=== PATIENT | male | born 1960 | race Caucasian/White ===

== ENCOUNTER 2017-02-05 09:10 | Outpatient (RCR) | payer MEDICAID, SELFPAY ==
[2017-02-05 09:29] VITALS: BP 123/78; PULSE 59; RESP 16; TEMP 37.6; BMI 29.5
--- NOTE | 2017-02-05 23:17 | PN.PCM_ITS ---
Type of Wound Date of Service: 02/05/17 Chief Complaint: MRSA abscess wounds dorsal ulnar aspect distal right forearm and right lower lip. History of Wound: Surgery 01/12/17 - 1. Surgical preparation dorsal ulnar aspect distal right forearm with incision and drainage abscess involving muscle and tendon (12.25 cm2). 2. Surgical preparation right lower lip with incision and drainage abscess involving underlying muscle (1 cm2). Wound care - Silver with adaptic over the tendon. Operative culture - MRSA in the right forearm and right lower lip. He is on Vancomycin IV while at the [facility]. Prealbumin from 01/13/17 was 14.1. Encourage nutritional supplementation with protein to help the healing process. Today he denies any fever. His appetite is good. Progress of Wound: Recent surgery 01/12/17. - Physical Exam Vital Signs Temp Pulse Resp BP Pulse Ox 99.6 F 59 16 123/78 02/05/17 09:29 02/05/17 09:29 02/05/17 09:29 02/05/17 09:29 Wound Measurements and Assessment WC - Nurse 1 - General Ulcer Measurement Start: 02/05/17 09:27 Freq: Status: Active Activity Type Activity Date Activity User E-Sign Co-Sign Detail Recorded Client Recorded Date Recorded By Document 02/05/17 09:29 [facility] [id number] 02/05/17 09:52 [facility] 02/05/17 09:29 Wound Center Nurse 1 [Ulcer Assessment] #3- LT TESTICLE (SUTURES) -Combined with other wound No -Current Size (cm) - Length 0.1 -Current Size (cm) - Width 0.1 -Current Size (cm) - Depth 0.1 -Total Square Cm 0.01 -Date of Last Picture (Recall this 02/05/17 field) -Photo Taken Yes -Epithelialization None Present -Tunneling No -Undermining/Tunneling No -Exudate Amt None Present (0 %) -Texture (Antonella-wound Skin Appearance) Assessed -Moisture (Antonella-wound Skin Appearance Assessed ) -Color (Antonella-wound Skin Appearance) Assessed -Temperature (Antonella-wound Skin No Abnormality Appearance) (Pt Warm) -Tenderness on Palpation (Antonella-wound No Skin Appearance) -Ulcer Cleansing Rinsed/ Irrigated with Saline -Foul Odor after Cleansing No -Anesthetic Used 4% Lidocaine Solution #2- RFA -Combined with other wound No -Current Size (cm) - Length 3.1 -Current Size (cm) - Width 3.2 -Current Size (cm) - Depth 0.4 -Total Square Cm 9.92 -Date of Last Picture (Recall this 02/05/17 field) -Photo Taken Yes -Epithelialization None Present -Tunneling No -Undermining/Tunneling Yes -Undermining/Tunneling Starts (O' 7 clock) -Undermining/Tunneling Ends (O'clock) 8 -Maximum Distance (cm) 0.4 -Exudate Amt Small (1-33%) -Exudate Type Yellow/Green -Wound Margin Distinct, Outline Attached -Granulation Amt Medium (34-66%) -Granulation Quality Pale Red -Slough/Fibrin Yes -Necrosis Amt Medium (34-66%) -Necrotic Tissue Type Adherent Slough -Structure Exposed Tendon -Texture (Antonella-wound Skin Appearance) Localized Edema -Moisture (Antonella-wound Skin Appearance Assessed ) -Color (Antonella-wound Skin Appearance) Erythema -Temperature (Antonella-wound Skin No Abnormality Appearance) (Pt Warm) -Tenderness on Palpation (Antonella-wound Yes Skin Appearance) -Ulcer Cleansing Rinsed/ Irrigated with Saline -Foul Odor after Cleansing No -Anesthetic Used 4% Lidocaine Solution #1- RT LOWER LIP\ -Combined with other wound No -Current Size (cm) - Length 0.6 -Current Size (cm) - Width 0.7 -Current Size (cm) - Depth 0.1 -Total Square Cm 0.42 -Date of Last Picture (Recall this 02/05/17 field) -Photo Taken Yes -Epithelialization None Present -Tunneling No -Undermining/Tunneling No -Exudate Amt None Present (0 %) -Wound Margin Distinct, Outline Attached -Granulation Amt None Present (0 %) -Slough/Fibrin Yes -Necrosis Amt Large (67-100%) -Necrotic Tissue Type Eschar -Structure Exposed N/A -Texture (Antonella-wound Skin Appearance) Assessed -Moisture (Antonella-wound Skin Appearance Assessed ) -Color (Antonella-wound Skin Appearance) Assessed -Temperature (Antonella-wound Skin No Abnormality Appearance) (Pt Warm) -Tenderness on Palpation ([place]-wound No Skin Appearance) -Ulcer Cleansing Rinsed/ Irrigated with Saline -Foul Odor after Cleansing No -Anesthetic Used 4% Lidocaine Solution WC - Nurse 2 - General Ulcer CM Notes Start: 02/05/17 09:27 Freq: Status: Active Activity Type Activity Date Activity User E-Sign Co-Sign Detail Recorded Client Recorded Date Recorded By Document 02/05/17 10:20 MARIAN [id number] 02/05/17 10:22 02/05/17 10:20 Wound Center Nurse 2 [Procedure/Treatment] #3- LT TESTICLE (SUTURES) -Correct Patient No -Correct Side, Site, Position No -Correct Procedure No -Procedure Performed No #2- RFA -Time 10:20 -Correct Patient Yes -Correct Side, Site, Position Yes -Correct Procedure Yes -Procedure Performed Yes -Type of Procedure Debridement -Clinical Debridement Muscle -Post Debridement Size (cm) - Length 3.2 -Post Debridement Size (cm) - Width 3.2 -Post Debridement Size (cm) - Depth 0.4 -Total Square Cm 10.24 -Wound/Ulcer Outcome Not Healed -Ulcer Cleansing Rinsed/ Irrigated with Saline -Foul Odor after Cleansing No -Bioengineered Tissue No -Cetacaine [place] No -Bleeding Controlled with Pressure -Treatment Response Procedure Tolerated Well #1- RT LOWER LIP\ -Time 10:21 -Correct Patient Yes -Correct Side, Site, Position Yes -Correct Procedure Yes -Procedure Performed Yes -Type of Procedure Debridement -Clinical Debridement Subcutaneous -Post Debridement Size (cm) - Length 0.7 -Post Debridement Size (cm) - Width 0.7 -Post Debridement Size (cm) - Depth 0.1 -Total Square Cm 0.49 -Wound/Ulcer Outcome Not Healed -Ulcer Cleansing Rinsed/ Irrigated with Saline -Foul Odor after Cleansing No -Bioengineered Tissue No -Cetacaine [place] No -Bleeding Controlled with Pressure -Treatment Response Procedure Tolerated Well [See Physician Procedure note for Specifics] Pain Scale: 0-10 Numeric [Pain] -Is Patient Pain Free? Yes Debridement Note Post-Debridement Measurements/Treatment WC - Nurse 2 - General Ulcer CM Notes Start: 02/05/17 09:27 Freq: Status: Active Activity Type Activity Date Activity User E-Sign Co-Sign Detail Recorded Client Recorded Date Recorded By Document 02/05/17 10:20 MARIAN [id number] 02/05/17 10:22 02/05/17 10:20 Wound Center Nurse 2 #3- LT TESTICLE (SUTURES) -Correct Patient No -Correct Side, Site, Position No -Correct Procedure No -Procedure Performed No #2- RFA -Time 10:20 -Correct Patient Yes -Correct Side, Site, Position Yes -Correct Procedure Yes -Procedure Performed Yes -Type of Procedure Debridement -Clinical Debridement Muscle -Post Debridement Size (cm) - Length 3.2 -Post Debridement Size (cm) - Width 3.2 -Post Debridement Size (cm) - Depth 0.4 -Total Square Cm 10.24 -Wound/Ulcer Outcome Not Healed -Ulcer Cleansing Rinsed/ Irrigated with Saline -Foul Odor after Cleansing No -Bioengineered Tissue No -Cetacaine [place] No -Bleeding Controlled with Pressure -Treatment Response Procedure Tolerated Well #1- RT LOWER LIP\ -Time 10:21 -Correct Patient Yes -Correct Side, Site, Position Yes -Correct Procedure Yes -Procedure Performed Yes -Type of Procedure Debridement -Clinical Debridement Subcutaneous -Post Debridement Size (cm) - Length 0.7 -Post Debridement Size (cm) - Width 0.7 -Post Debridement Size (cm) - Depth 0.1 -Total Square Cm 0.49 -Wound/Ulcer Outcome Not Healed -Ulcer Cleansing Rinsed/ Irrigated with Saline -Foul Odor after Cleansing No -Bioengineered Tissue No -Cetacaine [place] No -Bleeding Controlled with Pressure -Treatment Response Procedure Tolerated Well Pain Scale: 0-10 Numeric Is Patient Pain Free? Yes Wound debrided: #1 Right lower lip. Laterality: Right Wound Grade/Stage: 2. Type of Debridement: Excisional debridement Anesthesia Used: 4% Lidocaine Solution Depth: Down to and including healthy tissue, in the subcutaneous layer Percentage of wound debrided: 100 Instrument Used: 5mm curette Tissue Removed: subcutaneous tissue. Severity: Fat Layer Exposed Amount of bleeding with debridement: Mild Bleeding Controlled with: Pressure Patient tolerated procedure well - Additional Wound Wound debrided: #2 Dorsal ulnar aspect distal right forearm area. Laterality: Right Wound Grade/Stage: 3. Type of Debridement: Excisional debridement Anesthesia Used: 4% Lidocaine Solution Depth: Down to and including healthy tissue, in the subcutaneous layer, to muscle - tendon is exposed. Percentage of wound debrided: 100 Instrument Used: 5mm curette Tissue Removed: subcutaneous tissue and muscle. Severity: Fat Layer Exposed - muscle is exposed. tendon is exposed. Amount of bleeding with debridement: Mild Bleeding Controlled with: Pressure Patient tolerated procedure: Patient tolerated procedure well Assessment/Plan Assessment: 1. MRSA abscess wound dorsal ulnar aspect distal right forearm. 2. MRSA abscess wound right lower lip. 3. MRSA. 4. Smoker. Plan: Continue IV Vancomycin while at the ECF. Anticipate discharge in a week. Can change to po Doxycycline at that time. Continue Silver dressing changes daily. May use adaptic over the exposed tendon on the right forearm wound. May moisten the Silver. Wounds are stable. From my standpoint, the patient may work as long as he is out of the ECF and doesn't need po analgesics while at work. Prealbumin from 01/13/17 was 14.1. Encourage nutritional supplementation with protein to help the healing process. Encouraged the patient to stop smoking as it may have deleterious effects on wound healing. Followup 2 weeks.
== END 2017-02-08 23:59 ==
LOC: WC 09:10
PROVIDERS: Family Provider Internal Medicine; PCP Internal Medicine; Visit Provider Surgery
DX: K13.0 Diseases of lips (principal); L02.413 Cutaneous abscess of right upper limb; B95.62 Methicillin resistant Staphylococcus aureus infection as the cause of diseases classified elsewhere; F17.200 Nicotine dependence, unspecified, uncomplicated
CPT/HCPCS: 11042; 11043; 99213; G0463

== ENCOUNTER 2017-02-26 10:00 | Outpatient (RCR) | payer OTHER, SELFPAY ==
[2017-02-11 01:20] VITALS: BP 123/78; PULSE 59; RESP 16; TEMP 37.6; BMI 29.5
[2017-02-19 09:38] VITALS: BP 144/98; PULSE 110; RESP 18; TEMP 35.6; BMI 29.5
--- NOTE | 2017-02-19 23:40 | PN.PCM_ITS ---
Type of Wound Date of Service: 02/19/17 Chief Complaint: Nonhealing MRSA abscess ulcers dorsal ulnar aspect distal right forearm and right lower lip. History of Wound: Surgery 01/12/17 - 1. Surgical preparation dorsal ulnar aspect distal right forearm with incision and drainage abscess involving muscle and tendon (12.25 cm2). 2. Surgical preparation right lower lip with incision and drainage abscess involving underlying muscle (1 cm2). Wound care - Silver with adaptic over the tendon. Operative culture - MRSA in the right forearm and right lower lip. He stopped the Vancomycin IV when he was discharged from the [facility]. He is currently on Doxycycline. Prealbumin from 01/13/17 was 14.1. Encourage nutritional supplementation with protein to help the healing process. Today he denies any fever. His appetite is good. Progress of Wound: Right lower lip is healed and right forearm is improved. - Physical Exam Vital Signs Temp Pulse Resp BP 96.0 F L 110 H 18 144/98 H 02/19/17 09:38 02/19/17 09:38 02/19/17 09:38 02/19/17 09:38 Wound Measurements and Assessment - Nurse 1 - General Ulcer Measurement Start: 02/19/17 09:38 Freq: Status: Active Protocol: Activity Type Activity Date Activity User E-Sign Co-Sign Detail Recorded Client Recorded Date Recorded By Document 02/19/17 09:38 [id number] 02/19/17 09:41 02/19/17 09:38 Wound Center Nurse 1 [Ulcer Assessment Protocol: XAVIER.WD.LOC] #2- RFA -Combined with other wound No -Current Size (cm) - Length 3.3 -Current Size (cm) - Width 2.8 -Current Size (cm) - Depth 0.5 -Total Square Cm 9.24 -Photo Taken No -Epithelialization Small 1-33% -Tunneling No -Undermining/Tunneling No -Circular Undermining No -Classification - Thickness Full Thickness without Exposed Support Structure -Exudate Amt Medium (34-66%) -Exudate Type Serosanguineous -Wound Margin Distinct, Outline Attached -Granulation Amt Small (1-33%) -Granulation Quality [place] -Slough/Fibrin Yes -Necrosis Amt Medium (34-66%) -Necrotic Tissue Type Adherent Slough -Structure Exposed Fascia Fat Layer Exposed -Texture (Antonella-wound Skin Appearance) Scarring -Moisture (Antonella-wound Skin Appearance No Abnormality ) -Color (Antonella-wound Skin Appearance) Erythema -Temperature (Antonella-wound Skin No Abnormality Appearance) (Pt Warm) -Tenderness on Palpation (Antonella-wound No Skin Appearance) -Ulcer Cleansing Rinsed/ Irrigated with Saline -Foul Odor after Cleansing No -Anesthetic Used 5% Lidocaine Gel [Edema Assessment] -Lower Limb Edema Present No WC - Nurse 2 - General Ulcer CM Notes Start: 02/19/17 09:38 Freq: Status: Active Protocol: Activity Type Activity Date Activity User E-Sign Co-Sign Detail Recorded Client Recorded Date Recorded By Document 02/19/17 09:49 [id number] 02/19/17 09:51 02/19/17 09:49 Wound Center Nurse 2 [Procedure/Treatment] #2- RFA -Time 09:50 -Correct Patient Yes -Correct Side, Site, Position Yes -Correct Procedure Yes -Procedure Performed Yes -Type of Procedure Debridement -Clinical Debridement Muscle -Post Debridement Size (cm) - Length 3.5 -Post Debridement Size (cm) - Width 2.8 -Post Debridement Size (cm) - Depth 0.5 -Total Square Cm 9.80 -Wound/Ulcer Outcome Not Healed -Ulcer Cleansing Rinsed/ Irrigated with Saline -Foul Odor after Cleansing No -Bioengineered Tissue No -Cetacaine [place] No -Bleeding Controlled with Pressure -Treatment Response Procedure Tolerated Well [See Physician Procedure note for Specifics] Pain Scale: 0-10 Numeric [Pain] -Is Patient Pain Free? Yes Debridement Note Post-Debridement Measurements/Treatment WC - Nurse 2 - General Ulcer CM Notes Start: 02/19/17 09:38 Freq: Status: Active Protocol: Activity Type Activity Date Activity User E-Sign Co-Sign Detail Recorded Client Recorded Date Recorded By Document 02/19/17 09:49 [id number] 02/19/17 09:51 02/19/17 09:49 Wound Center Nurse 2 #2- RFA -Time 09:50 -Correct Patient Yes -Correct Side, Site, Position Yes -Correct Procedure Yes -Procedure Performed Yes -Type of Procedure Debridement -Clinical Debridement Muscle -Post Debridement Size (cm) - Length 3.5 -Post Debridement Size (cm) - Width 2.8 -Post Debridement Size (cm) - Depth 0.5 -Total Square Cm 9.80 -Wound/Ulcer Outcome Not Healed -Ulcer Cleansing Rinsed/ Irrigated with Saline -Foul Odor after Cleansing No -Bioengineered Tissue No -Cetacaine [place] No -Bleeding Controlled with Pressure -Treatment Response Procedure Tolerated Well Pain Scale: 0-10 Numeric Is Patient Pain Free? Yes Wound debrided: #2 Dorsal ulnar aspect distal right forearm area. Laterality: Right Wound Grade/Stage: 3. Type of Debridement: Excisional debridement Anesthesia Used: 4% Lidocaine Solution Depth: Down to and including healthy tissue, in the subcutaneous layer, to muscle - tendon is exposed. Percentage of wound debrided: 100 Instrument Used: 5mm curette Tissue Removed: subcutaneous tissue and muscle. Severity: Fat Layer Exposed - muscle is exposed. tendon is exposed. Amount of bleeding with debridement: Mild Bleeding Controlled with: Pressure Patient tolerated procedure well Assessment/Plan Assessment: 1. Nonhealing MRSA abscess ulcer dorsal ulnar aspect distal right forearm. 2. MRSA abscess ulcer right lower lip, healed. 3. MRSA. 4. Smoker. Plan: The right lower lip MRSA ulcer has healed. The Vancomycin has been stopped since he has been discharged from the [facility]. He is currently on Doxycycline for the MRSA. Continue Silver dressing changes daily on the distal right forearm ulcer. May use adaptic over the exposed tendon on the right forearm ulcer. May moisten the Silver. He is at work and is tolerating it ok. He doesn't use any po analgesics while at work. After work when he gets home , he has needed some po analgesia. Renewed his Percocet for pain, one tab (30 tabs). Prealbumin from 01/13/17 was 14.1. Encourage nutritional supplementation with protein to help the healing process. Encouraged the patient to stop smoking as it may have deleterious effects on wound healing. Followup one week.
[2017-02-26 10:13] VITALS: BP 142/86; PULSE 69; RESP 18; TEMP 37.7; BMI 29.5
--- NOTE | 2017-02-26 17:57 | PN.PCM_ITS ---
Type of Wound Date of Service: 02/26/17 Chief Complaint: Nonhealing MRSA abscess ulcer dorsal ulnar aspect distal right forearm. History of Wound: Surgery 01/12/17 - 1. Surgical preparation dorsal ulnar aspect distal right forearm with incision and drainage abscess involving muscle and tendon (12.25 cm2). 2. Surgical preparation right lower lip with incision and drainage abscess involving underlying muscle (1 cm2). Wound care - Silver with adaptic over the tendon. Operative culture - MRSA in the right forearm and right lower lip. He stopped the Vancomycin IV when he was discharged from the [facility]. He was started on Doxycycline and has finished them. Prealbumin from 01/13/17 was 14.1. Encourage nutritional supplementation with protein to help the healing process. Today he denies any fever. His appetite is good. Progress of Wound: Right forearm ulcer is improved. - Physical Exam Vital Signs Temp Pulse Resp BP 99.8 F H 69 18 142/86 H 02/26/17 10:13 02/26/17 10:13 02/26/17 10:13 02/26/17 10:13 Wound Measurements and Assessment - Nurse 1 - General Ulcer Measurement Start: 02/19/17 09:38 Freq: Status: Active Protocol: Activity Type Activity Date Activity User E-Sign Co-Sign Detail Recorded Client Recorded Date Recorded By Document 02/26/17 10:13 [id number] 02/26/17 10:15 02/26/17 10:13 Wound Center Nurse 1 [Ulcer Assessment Protocol: XAVIER.WD.LOC] #2- RFA -Combined with other wound No -Current Size (cm) - Length 3.0 -Current Size (cm) - Width 3.0 -Current Size (cm) - Depth 0.7 -Total Square Cm 9.00 -Photo Taken No -Epithelialization Small 1-33% -Tunneling No -Undermining/Tunneling No -Circular Undermining No -Classification - Thickness Full Thickness with Exposed Support Structure -Exudate Amt Medium (34-66%) -Exudate Type Serosanguineous -Wound Margin Distinct, Outline Attached -Granulation Amt Medium (34-66%) -Granulation Quality Red -Slough/Fibrin Yes -Necrosis Amt Small (1-33%) -Necrotic Tissue Type Adherent Slough -Structure Exposed Tendon Fascia Fat Layer Exposed -Texture (Antonella-wound Skin Appearance) No Abnormality -Moisture (Antonella-wound Skin Appearance Maceration ) -Color (Antonella-wound Skin Appearance) Erythema -Temperature (Antonella-wound Skin No Abnormality Appearance) (Pt Warm) -Tenderness on Palpation (Antonella-wound No Skin Appearance) -Ulcer Cleansing Rinsed/ Irrigated with Saline -Foul Odor after Cleansing No -Anesthetic Used 5% Lidocaine Gel [Edema Assessment] -Lower Limb Edema Present No WC - Nurse 2 - General Ulcer CM Notes Start: 02/19/17 09:38 Freq: Status: Active Protocol: Activity Type Activity Date Activity User E-Sign Co-Sign Detail Recorded Client Recorded Date Recorded By Document 02/26/17 10:31 [id number] 02/26/17 10:32 02/26/17 10:31 Wound Center Nurse 2 [Procedure/Treatment] #2- RFA -Time 10:32 -Correct Patient Yes -Correct Side, Site, Position Yes -Correct Procedure Yes -Procedure Performed Yes -Type of Procedure Debridement -Clinical Debridement Muscle -Post Debridement Size (cm) - Length 3.1 -Post Debridement Size (cm) - Width 3.0 -Post Debridement Size (cm) - Depth 0.7 -Total Square Cm 9.30 -Wound/Ulcer Outcome Not Healed -Ulcer Cleansing Rinsed/ Irrigated with Saline -Foul Odor after Cleansing No -Bioengineered Tissue No -Cetacaine [place] No -Bleeding Controlled with Pressure -Treatment Response Procedure Tolerated Well [See Physician Procedure note for Specifics] Pain Scale: 0-10 Numeric [Pain] -Is Patient Pain Free? Yes Debridement Note Post-Debridement Measurements/Treatment WC - Nurse 2 - General Ulcer CM Notes Start: 02/19/17 09:38 Freq: Status: Active Protocol: Activity Type Activity Date Activity User E-Sign Co-Sign Detail Recorded Client Recorded Date Recorded By Document 02/19/17 09:49 [id number] 02/19/17 09:51 Document 02/26/17 10:31 [id number] 02/26/17 10:32 02/19/17 02/26/17 09:49 10:31 Wound Center Nurse 2 #2- RFA -Time 09:50 10:32 -Correct Patient Yes Yes -Correct Side, Site, Position Yes Yes -Correct Procedure Yes Yes -Procedure Performed Yes Yes -Type of Procedure Debridement Debridement -Clinical Debridement Muscle Muscle -Post Debridement Size (cm) - Length 3.5 3.1 -Post Debridement Size (cm) - Width 2.8 3.0 -Post Debridement Size (cm) - Depth 0.5 0.7 -Total Square Cm 9.80 9.30 -Wound/Ulcer Outcome Not Healed Not Healed -Ulcer Cleansing Rinsed/ Rinsed/ Irrigated with Irrigated with Saline Saline -Foul Odor after Cleansing No No -Bioengineered Tissue No No -Cetacaine [place] No No -Bleeding Controlled with Pressure Pressure -Treatment Response Procedure Procedure Tolerated Well Tolerated Well Pain Scale: 0-10 Numeric Is Patient Pain Free? Yes Yes Wound debrided: #2 Dorsal ulnar aspect distal right forearm area. Laterality: Right Wound Grade/Stage: 3. Type of Debridement: Excisional debridement Anesthesia Used: 4% Lidocaine Solution Depth: Down to and including healthy tissue, in the subcutaneous layer, to muscle - tendon is exposed. Percentage of wound debrided: 100 Instrument Used: 5mm curette Tissue Removed: subcutaneous tissue and muscle. Severity: Fat Layer Exposed - muscle is exposed. tendon is exposed. Amount of bleeding with debridement: Mild Bleeding Controlled with: Pressure Patient tolerated procedure well Assessment/Plan Assessment: 1. Nonhealing MRSA abscess ulcer dorsal ulnar aspect distal right forearm. 2. MRSA abscess ulcer right lower lip, healed. 3. MRSA. 4. Smoker. Plan: The Vancomycin has been stopped since he has been discharged from the [facility]. He was started on Doxycycline for the MRSA and has finished them. Continue Silver dressing changes daily on the distal right forearm ulcer. May use adaptic over the exposed tendon on the right forearm ulcer. May moisten the Silver. He is at work and is tolerating it ok. He doesn't use any po analgesics while at work. After work when he gets home, he has needed some po analgesia. Renewed his Percocet for pain, one tab (30 tabs). Prealbumin from 01/13/17 was 14.1. Encourage nutritional supplementation with protein to help the healing process. Encouraged the patient to stop smoking as it may have deleterious effects on wound healing. Followup 3 weeks.
== END 2017-03-11 23:59 ==
LOC: WC 10:00
PROVIDERS: Family Provider Internal Medicine; PCP Internal Medicine; Visit Provider Surgery
DX: L02.413 Cutaneous abscess of right upper limb (principal); B95.62 Methicillin resistant Staphylococcus aureus infection as the cause of diseases classified elsewhere; K13.0 Diseases of lips; F17.200 Nicotine dependence, unspecified, uncomplicated
CPT/HCPCS: 11043

== ENCOUNTER 2017-03-02 13:38 | Observation (INO) | payer MEDICAID, SELFPAY ==
[2017-03-02 13:57] VITALS: BMI 28.6
--- NOTE | 2017-03-02 14:13 | PCM.HP.STD ---
Problem List (1) Drug abuse Status: Chronic (2) Restless leg syndrome Status: Chronic (3) Depression Status: Chronic (4) History of alcohol abuse Status: Chronic (5) Tobacco abuse Status: Chronic (6) History of MRSA infection Status: Chronic History of Present Illness Date of Admission: 03/02/17 Chief Complaint: Abdominal cramps, nausea and diarrhea. The patient is a 57 year old M with past medical history as mentioned above presented to [facility] office because of symptoms of abdominal cramps, nausea, diarrhea and body aches. Patient has been using IV heroin over the last few weeks, almost daily, last dose was yesterday morning. 3 hours after his last dose yesterday morning, he started having abdominal pain, described as abdominal cramps, mild to moderate, around 4 out of 10 in severity, not radiating, associated with nausea and diarrhea and without aggravating or relieving factors. He denied associated fever or chills. He reported generalized body aches and pains. He complained of headache, generalized headache, dull aching, without aggravating or relieving factors and no associated symptoms. He denied associated blurred vision or slurred speech. He denies urinary symptoms. On January,, he was admitted for right distal forearm MRSA abscess underwent incision and drainage and he was discharged on vancomycin. According to the patient, he completed the course of vancomycin around 1 week ago[address] He saw Dr. Lara this past Sunday and according to the patient, everything was fine. During that admission, he was found to have scrotal abscess and he underwent incision and drainage as well. Cultures from the scrotal abscess and right distal forearm abscess revealed MRSA during that admission. At this time, his vital signs are stable, afebrile. He was directly admitted to the floor from the [facility] office for acute opiate withdrawal for medical stabilization. No blood work done at this time. Past Medical History Past Medical History (Chronic Problems): Chronic Problems Drug abuse (Chronic) Restless leg syndrome (Chronic) Depression (Chronic) History of alcohol abuse (Chronic) Tobacco abuse (Chronic) History of MRSA infection (Chronic) Allergies meloxicam Allergy (Verified 01/11/17 09:51) Hives Home Medications: Ambulatory Orders Medication Instructions Recorded Fluoxetine HCl [Prozac] 20 mg PO DAILY 01/11/17 Lactobacillus Acidophilus 1 cap PO DAILY 01/11/17 [Acidophilus] Melatonin 10 mg PO QHS 01/11/17 Naproxen 500 mg PO BID PRN 01/11/17 Nicotine Polacrilex [Nicotine 4 mg BUCCAL Q4H PRN 01/11/17 Lozenge] Trazodone HCl [Desyrel] 100 mg PO QHS PRN PRN 01/11/17 Acetaminophen [Tylenol Tablet] 650 mg PO Q6H PRN PRN tablet 01/19/17 Naproxen 500 mg PO TID PRN PRN 03/02/17 Nicotine [Nicoderm Cq] 21 mg TRANSDERM. DAILY 03/02/17 Surgical History: - - Recent history of incision and drainage of right distal forearm abscess and scrotal abscess. Psychiatric History: Depression Lives: Spouse/ Significant Other Smoking Status: Current every day smoker Alcohol: Heavy Drugs: Heroin - *Family History Maternal History Items: Cancer Paternal History Items: No pertinent history Review of Systems Constitutional: Denies: Anorexia, Chills, Fever, Weakness Eyes: Denies: Blurred vision, Double vision, Drainage, Redness HEENT: Denies: Difficulty Hearing, Ear Pain, Eye Pain, Nasal Congestion, Sore Throat Cardiovascular: Denies: Chest Pain, Chest Pressure, Edema, Heaviness, Palpitations, Syncope Respiratory: Reports: Cough. Denies: Pleuritic Pain, Shortness of Breath, Sputum production, Wheezing Gastrointestinal: Reports: Diarrhea, Nausea. Denies: Abdominal Pain, Constipation, Hematochezia, Melena, Vomiting Genitourinary: Denies: Dysuria, Frequency, Hematuria Musculoskeletal: Reports: Muscle pain. Denies: Arm Pain, Foot Pain, Hand Pain Skin: Denies: Dryness, Rash Neurological: Denies: Balance problems, Double vision, Change in Speech, Slurred speech, Confusion, Focal weakness, Headaches, Incoordination, Tingling Psychiatric: Reports: Depression. Denies: Anxiety Endocrine: Denies: Change in Body Habitus, Polydipsia VTE Information - Inpt Only VTE Present on Admission: No VTE Mechan Device Prophylaxis: None VTE Pharm Prophylaxis ordered?: No - Physical Exam General: Alert, Oriented x3, Cooperative, No apparent distress HEENT: Atraumatic, PERRLA, EOMI Oral: Moist Mucosa, No Gingival or Mucosal Lesions/ Ulcerations Neck: Supple, No JVD, Negative Carotid Bruits, Trachea Midline, Thyroid Normal Size and Texture Lungs: Clear to auscultation, No rhonchi, No wheeze, No rales, Diminished Cardiovascular: Regular rate, Regular Rhythm, Normal S1, Normal S2, No murmurs Abdomen: Bowel Sounds Present, Soft, Non Tender, Non-Distended, No Hepato-splenomegaly Extremities: No clubbing, No cyanosis, No edema Skin: No rashes, Ulcer/ Wound - Right forearm: Open ulcer/wound measuring about 3 x 2 cm on the lateral aspect of the right forearm with surrounding minimal erythema, no drainage or pus. Lymphatic: No Cervical, Supraclavicular, or Inguinal Adenopathy Neurological: Cranial nerves II-XII grossly intact, Motor Exam 5/5 strength throughout Psych/Mental Status: Normal Affect, Appropriate, Alert and oriented to time, place, person, mood and affect Weight: 193 lb 12.581 oz Body Mass Index (BMI) 28.6 Assessment/Plan This is a 57 years old male patient presented to the [facility] office for symptoms of generalized body aches, abdominal cramps, nausea and diarrhea in context of history of using IV heroin, last dose was yesterday morning and he was admitted for acute opiate withdrawal for medical stabilization. #1 acute opiate withdrawal: Patient has been using IV heroin for the last couple of weeks, also has been using pain pills since his surgery back in January 12, 2017. According to the patient, he has been clean for more than a year before that date and he has been using pain pills and IV him as well. Last use was yesterday morning of IV heroin. At this time, vital signs are stable. Routine blood work is pending. Plan: Admit to [facility] floor, stat CBC, CMP, pro time and INR, urine drug screen, blood alcohol level, lipase and amylase, IV fluids, initiate Neupogen protocol with tapering course of Subutex, as needed Sinemet, Catapres, Bentyl, Vistaril, methocarbamol, Seroquel and trazodone. #2 recent history of MRSA right distal forearm abscess: According to the patient, he completed course of vancomycin around 1 week ago. He followed up with Dr. Lara this past Sunday, stated that everything is stable. He does have open wounds on the lateral aspect of the right distal forearm measuring about 2 x 2 centimeters with minimal surrounding erythema, no pus or drainage. Plan: Wound care nurse consult for dressing. #3 recent history of MRSA scrotal abscess: Completed course of vancomycin. Scrotum examined, no evidence of swelling, erythema or drainage, resolved. #4 alcohol abuse: Patient has been drinking 1 beer daily, last drink was this morning. No evidence of withdrawal symptoms. Plan: Blood alcohol level, thiamine and folic acid supplement, Ativan if needed. #5 Drug abuse: Plan as above, urine drug screen, initiate [facility] program as above. #6 tobacco abuse: NicoDerm patch. #7 depression: Continue trazodone and Prozac. #8 restless leg syndrome: Continue trazodone. #9 DVT prophylaxis: Low suspicion, no prophylaxis indicated. This note was generated with [employer] dictation software. It may contain incorrect words, spelling, and punctuation that were not noted in checking the note before signing. Code Visit Inpatient E&M: 07484 Init Hosp L2
--- NOTE | 2017-03-02 14:16 | HP.PCM_ITS ---
Problem List (1) Drug abuse Status: Chronic (2) Restless leg syndrome Status: Chronic (3) Depression Status: Chronic (4) History of alcohol abuse Status: Chronic (5) Tobacco abuse Status: Chronic (6) History of MRSA infection Status: Chronic History of Present Illness Date of Admission: 03/02/17 Chief Complaint: Abdominal cramps, nausea and diarrhea. The patient is a 57 year old M with past medical history as mentioned above presented to [facility] office because of symptoms of abdominal cramps, nausea, diarrhea and body aches. Patient has been using IV heroin over the last few weeks, almost daily, last dose was yesterday morning. 3 hours after his last dose yesterday morning, he started having abdominal pain, described as abdominal cramps, mild to moderate, around 4 out of 10 in severity, not radiating, associated with nausea and diarrhea and without aggravating or relieving factors. He denied associated fever or chills. He reported generalized body aches and pains. He complained of headache, generalized headache, dull aching, without aggravating or relieving factors and no associated symptoms. He denied associated blurred vision or slurred speech. He denies urinary symptoms. On January,, he was admitted for right distal forearm MRSA abscess underwent incision and drainage and he was discharged on vancomycin. According to the patient, he completed the course of vancomycin around 1 week [address] He saw Dr. Lara this past Sunday and according to the patient, everything was fine. During that admission, he was found to have scrotal abscess and he underwent incision and drainage as well. Cultures from the scrotal abscess and right distal forearm abscess revealed MRSA during that admission. At this time, his vital signs are stable, afebrile. He was directly admitted to the floor from the [facility] office for acute opiate withdrawal for medical stabilization. No blood work done at this time. Past Medical History Past Medical History (Chronic Problems): Chronic Problems Drug abuse (Chronic) Restless leg syndrome (Chronic) Depression (Chronic) History of alcohol abuse (Chronic) Tobacco abuse (Chronic) History of MRSA infection (Chronic) Allergies meloxicam Allergy (Verified 01/11/17 09:51) Hives Home Medications: Ambulatory Orders Medication Instructions Recorded Fluoxetine HCl [Prozac] 20 mg PO DAILY 01/11/17 Lactobacillus Acidophilus 1 cap PO DAILY 01/11/17 [Acidophilus] Melatonin 10 mg PO QHS 01/11/17 Naproxen 500 mg PO BID PRN 01/11/17 Nicotine Polacrilex [Nicotine 4 mg BUCCAL Q4H PRN 01/11/17 Lozenge] Trazodone HCl [Desyrel] 100 mg PO QHS PRN PRN 01/11/17 Acetaminophen [Tylenol Tablet] 650 mg PO Q6H PRN PRN tablet 01/19/17 Naproxen 500 mg PO TID PRN PRN 03/02/17 Nicotine [Nicoderm Cq] 21 mg TRANSDERM. DAILY 03/02/17 Surgical History: - - Recent history of incision and drainage of right distal forearm abscess and scrotal abscess. Psychiatric History: Depression Lives: Spouse/ Significant Other Smoking Status: Current every day smoker Alcohol: Heavy Drugs: Heroin - *Family History Maternal History Items: Cancer Paternal History Items: No pertinent history Review of Systems Constitutional: Denies: Anorexia, Chills, Fever, Weakness Eyes: Denies: Blurred vision, Double vision, Drainage, Redness HEENT: Denies: Difficulty Hearing, Ear Pain, Eye Pain, Nasal Congestion, Sore Throat Cardiovascular: Denies: Chest Pain, Chest Pressure, Edema, Heaviness, Palpitations, Syncope Respiratory: Reports: Cough. Denies: Pleuritic Pain, Shortness of Breath, Sputum production, Wheezing Gastrointestinal: Reports: Diarrhea, Nausea. Denies: Abdominal Pain, Constipation, Hematochezia, Melena, Vomiting Genitourinary: Denies: Dysuria, Frequency, Hematuria Musculoskeletal: Reports: Muscle pain. Denies: Arm Pain, Foot Pain, Hand Pain Skin: Denies: Dryness, Rash Neurological: Denies: Balance problems, Double vision, Change in Speech, Slurred speech, Confusion, Focal weakness, Headaches, Incoordination, Tingling Psychiatric: Reports: Depression. Denies: Anxiety Endocrine: Denies: Change in Body Habitus, Polydipsia VTE Information - Inpt Only VTE Present on Admission: No VTE Mechan Device Prophylaxis: None VTE Pharm Prophylaxis ordered?: No - Physical Exam General: Alert, Oriented x3, Cooperative, No apparent distress HEENT: Atraumatic, PERRLA, EOMI Oral: Moist Mucosa, No Gingival or Mucosal Lesions/ Ulcerations Neck: Supple, No JVD, Negative Carotid Bruits, Trachea Midline, Thyroid Normal Size and Texture Lungs: Clear to auscultation, No rhonchi, No wheeze, No rales, Diminished Cardiovascular: Regular rate, Regular Rhythm, Normal S1, Normal S2, No murmurs Abdomen: Bowel Sounds Present, Soft, Non Tender, Non-Distended, No Hepato- splenomegaly Extremities: No clubbing, No cyanosis, No edema Skin: No rashes, Ulcer/ Wound - Right forearm: Open ulcer/wound measuring about 3 x 2 cm on the lateral aspect of the right forearm with surrounding minimal erythema, no drainage or pus. Lymphatic: No Cervical, Supraclavicular, or Inguinal Adenopathy Neurological: Cranial nerves II-XII grossly intact, Motor Exam 5/5 strength throughout Psych/Mental Status: Normal Affect, Appropriate, Alert and oriented to time, place, person, mood and affect Weight: 193 lb 12.581 oz Body Mass Index (BMI) 28.6 Assessment/Plan This is a 57 years old male patient presented to the [facility] office for symptoms of generalized body aches, abdominal cramps, nausea and diarrhea in context of history of using IV heroin, last dose was yesterday morning and he was admitted for acute opiate withdrawal for medical stabilization. #1 acute opiate withdrawal: Patient has been using IV heroin for the last couple of weeks, also has been using pain pills since his surgery back in January 12, 2017. According to the patient, he has been clean for more than a year before that date and he has been using pain pills and IV him as well. Last use was yesterday morning of IV heroin. At this time, vital signs are stable. Routine blood work is pending. Plan: Admit to [facility] floor, stat CBC , CMP, pro time and INR, urine drug screen, blood alcohol level, lipase and amylase, IV fluids, initiate Neupogen protocol with tapering course of Subutex, as needed Sinemet, Catapres, Bentyl, Vistaril, methocarbamol, Seroquel and trazodone. #2 recent history of MRSA right distal forearm abscess: According to the patient , he completed course of vancomycin around 1 week ago. He followed up with Dr. Lara this past Sunday, stated that everything is stable. He does have open wounds on the lateral aspect of the right distal forearm measuring about 2 x 2 centimeters with minimal surrounding erythema, no pus or drainage. Plan: Wound care nurse consult for dressing. #3 recent history of MRSA scrotal abscess: Completed course of vancomycin. Scrotum examined, no evidence of swelling, erythema or drainage, resolved. #4 alcohol abuse: Patient has been drinking 1 beer daily, last drink was this morning. No evidence of withdrawal symptoms. Plan: Blood alcohol level, thiamine and folic acid supplement, Ativan if needed. #5 Drug abuse: Plan as above, urine drug screen, initiate [facility] program as above. #6 tobacco abuse: NicoDerm patch. #7 depression: Continue trazodone and Prozac. #8 restless leg syndrome: Continue trazodone. #9 DVT prophylaxis: Low suspicion, no prophylaxis indicated. This note was generated with [employer] dictation software. It may contain incorrect words, spelling, and punctuation that were not noted in checking the note before signing. Code Visit Inpatient E&M: 20367 Init Hosp L2
--- NOTE | 2017-03-02 15:13 | NURSING ---
Patient states that he goes to the wound center for right forearm wound and was just there this past Sunday. This RN attempted to call wound center to find out what treatment they were applying to wound. Wound center answering machine states that are currently closed for the holiday. After undressing would- patient found to have aquacel silver, covered with DSD and AIMEE wrap.
[2017-03-02] MEDS: Loperamide 2 MG Capsule PO (15:20)
[2017-03-02] MEDS: cloNIDine HCl 0.1 MG Tablet PO ×2 (15:20→22:23)
[2017-03-02] MEDS: Buprenorphine HCl 2 MG TAB.SUBL SL ×2 (15:20→22:23)
[2017-03-02] MEDS: Methocarbamol 750 MG Tablet PO ×2 (15:20→22:23)
[2017-03-02] MEDS: Ondansetron ODT 4 MG Tablet PO (15:20)
[2017-03-02 15:24] LABS: Absolute Neutrophil Count 3.7 X10^3/uL (2.0-7.7); Basophil# 0.03 X10^3/uL; Basophil% 0.5 % (0-1); Eosinophil# 0.19 X10^3/uL; Eosinophils% 3.2 % (0-5); Hematocrit 37.6 % (40-54); Hemoglobin 12.5 g/dl (13.0-16.5); Lymphocyte % 26.9 % (19-41); Mean Corp Hgb Conc 33.2 g/gl (32-36); Mean Corpuscular Hgb 28.9 pg (27.0-32.0); Mean Corpuscular Volume 86.8 fL (80-94); Mean Platelet Vol. 11.5 fl (6.2-12.0); Monocyte% 6.7 % (0-10); Neutrophil # 3.73 X10^3/uL (2.7-7.7); Neutrophil % 62.7 % (47-70); Platelet Count 125 K/mm3 (150-450); RBC Distribution Width CV 16.3 % (11.6-14.6); Red Blood Count 4.33 M/mm3 (4.6-6.2)
[2017-03-02 15:28] VITALS: BP 121/75; PULSE 66; RESP 18; TEMP 36.7
[2017-03-02 15:29] LABS: POSITIVE COUNT NO; POSITIVE DIFFERENTIAL NO; POSITIVE MORPHOLOGY NO
[2017-03-02 15:35] LABS: International Normalized Ratio 1.1; Prothrombin Time (Protime)PT. 13.6 SECONDS (11.7-14.9)
[2017-03-02 16:11] LABS: ALB/GLOB Ratio 1.1 RATIO (0.9-2.4); AST(SGOT) 14 U/L (15-37); Alanine Aminotransfer ALT/SGPT 21 U/L (12-78); Albumin, Serum 3.7 g/dL (3.4-5.0); Alkaline Phosphatase 67 U/L (45-117); Amylase 55 U/L (25-115); Anion Gap 7 (5-15); BUN 14 mg/dL (7-18); BUN/Creat Ratio 16.3 RATIO (10-20); Calcium,Total 8.4 mg/dL (8.5-10.1); Chloride 106 mmol/L (98-107); Creatinine, Serum 0.86 mg/dL (0.70-1.30); EST Glomerular Filtration Rate 98 mL/min (>60); Est Glom Filt Rate - Afr Amer 119 mL/min (>60); Estimated Creatinine Clearance 97.05 ml/min; Globulin 3.4 g/dL (2.2-4.2); Glucose 84 mg/dL (70-110); Lipase 271 U/L (73-393); Potassium 3.7 mmol/L (3.5-5.1); Protein, Total 7.1 g/dL (6.4-8.2); Sodium Level 139 mmol/L (136-145)
[2017-03-02 16:36] LABS: Amphetamine Urine VISTA NEGATIVE (<1000 ng/mL); Barbiturate Urine VISTA NEGATIVE (< 200 ng/mL); Benzodiazepine Urine VISTA NEGATIVE (< 200 ng/mL); Cocaine Urine VISTA NEGATIVE (< 300 ng/mL); Ecstacy Urine VISTA NEGATIVE (< 500 ng/mL); Methadone Urine VISTA NEGATIVE (< 300 ng/mL); PCP Urine VISTA NEGATIVE (< 25 ng/mL); THC Urine VISTA NEGATIVE (< 50 ng/mL); Vista UDS pH Range 6
[2017-03-02 22:12] VITALS: BP 108/64; PULSE 69; RESP 16; TEMP 36.5
[2017-03-02] MEDS: MELATONIN 10 MG TABLET PO (22:23)
[2017-03-02] MEDS: QUEtiapine 25 MG Tablet PO (22:23)
[2017-03-02] MEDS: Acetaminophen 325 MG Tablet 650 MG PO (22:23)
[2017-03-02] MEDS: Dicyclomine 10 MG Capsule 20 MG PO (22:23)
[2017-03-03] VITALS (7 sets, daily range): BP systolic 94–149; BP diastolic 53–97; PULSE 50–68; RESP 16–18; TEMP 36.3–36.8
[2017-03-03] MEDS: Buprenorphine HCl 2 MG TAB.SUBL SL ×3 (06:10→23:37)
[2017-03-03] MEDS: Folic Acid 1 MG Tablet PO (09:11)
[2017-03-03] MEDS: Thiamine Hydrochloride 100 MG Tablet PO (09:11)
[2017-03-03] MEDS: Multivitamins,Ther W-Minerals Tablet 1 TABLET PO (09:12)
[2017-03-03] MEDS: FLUoxetine 20 MG Capsule PO (09:12)
--- NOTE | 2017-03-03 12:54 | PCM.PN.BLA ---
Progress Note Patient is a 57-year-old male with a past medical history of restless leg syndrome, depression, alcohol abuse, nicotine dependence, illicit drug abuse and recent admission to the hospital for a distal right upper extremity and scrotal abscess. Cultures at that time were positive for MRSA. He was discharged from that admission to a assisted facility for an additional week of vancomycin. He presented to the [facility] office on 03/02 requesting inpatient admission for medical stabilization for opioid withdrawal. He has been using heroin. White blood cell count was normal on 03/02 and his hemoglobin is stable at 12.5. Platelets were low at 125,000. BMP was unremarkable. LFTs were normal. The drug panel was negative but the ethyl alcohol level was 109. Patient stated on his previous admission that he quit drinking 1 year ago. Has used heroin off and on over the past 10 years. Had been clear for the past year and then got MRSA cellulitis of the arm due to an abrasion and a scrotal abscess due to MRSA. Both required debridement and pain medications and he got hooked again. He was recently at [facility] for rehab. He is supposed to go to [facility] on Sunday to be evaluated for and inpt rehab program. Has also started drinking again recently. Denies any hx of Hep C but did share needles with a GF in the past. will check an HIV and hepatitis panel. Alert and oriented ?3, appropriate, does not appear to be in any acute distress but does have some restlessness. He denies nausea/vomiting/diarrhea. Lungs-diminished but clear to auscultation Heart-regular rate and rhythm, no gallop, no murmur, no rub Abdomen-soft, nontender, nondistended, normal bowel sounds He has some track walker on his hands but none appear to be infected. Skin is warm and dry, no rashes Impressions 1. Acute opiate withdrawal-admitted for medical stabilization for acute opiate withdrawal. Plans on attending an inpatient rehab program post discharge. Will keep him in the hospital until Sunday and discharge of that he can go immediately to [facility]. 2. Alcohol abuse 3. Nicotine addiction Continue the [facility] protocol for acute opiate withdrawal. Smoking cessation counseling was given. Code Visit Inpatient E&M: 94216 Subs Hosp L2
--- NOTE | 2017-03-03 13:05 | PN_ITS ---
Progress Note Patient is a 57-year-old male with a past medical history of restless leg syndrome, depression, alcohol abuse, nicotine dependence, illicit drug abuse and recent admission to the hospital for a distal right upper extremity and scrotal abscess. Cultures at that time were positive for MRSA. He was discharged from that admission to a halfway facility for an additional week of vancomycin. He presented to the [facility] office on 03/02 requesting inpatient admission for medical stabilization for opioid withdrawal. He has been using heroin. White blood cell count was normal on 03/02 and his hemoglobin is stable at 12.5. Platelets were low at 125,000. BMP was unremarkable. LFTs were normal. The drug panel was negative but the ethyl alcohol level was 109. Patient stated on his previous admission that he quit drinking 1 year ago. Has used heroin off and on over the past 10 years. Had been clear for the past year and then got MRSA cellulitis of the arm due to an abrasion and a scrotal abscess due to MRSA. Both required debridement and pain medications and he got hooked again. He was recently at [facility] for rehab. He is supposed to go to [facility] on Sunday to be evaluated for and inpt rehab program. Has also started drinking again recently. Denies any hx of Hep C but did share needles with a GF in the past. will check an HIV and hepatitis panel. Alert and oriented ?3, appropriate, does not appear to be in any acute distress but does have some restlessness. He denies nausea/vomiting/diarrhea. Lungs-diminished but clear to auscultation Heart-regular rate and rhythm, no gallop, no murmur, no rub Abdomen-soft, nontender, nondistended, normal bowel sounds He has some track walker on his hands but none appear to be infected. Skin is warm and dry, no rashes Impressions 1. Acute opiate withdrawal-admitted for medical stabilization for acute opiate withdrawal. Plans on attending an inpatient rehab program post discharge. Will keep him in the hospital until Sunday and discharge of that he can go immediately to [facility]. 2. Alcohol abuse 3. Nicotine addiction Continue the [facility] protocol for acute opiate withdrawal. Smoking cessation counseling was given. Code Visit Inpatient E&M: 83749 Subs Hosp L2
[2017-03-03] MEDS: Methocarbamol 750 MG Tablet PO ×2 (14:02→18:58)
[2017-03-03] MEDS: Nicotine Polacrilex 2 MG GUM PO (15:10)
[2017-03-03] MEDS: QUEtiapine 25 MG Tablet PO (18:57)
[2017-03-03] MEDS: Dicyclomine 10 MG Capsule 20 MG PO (18:57)
[2017-03-03] MEDS: cloNIDine HCl 0.1 MG Tablet PO (18:58)
[2017-03-03] MEDS: Carbidopa/Levodopa 25/100 Tablet PO (18:58)
[2017-03-03] MEDS: Acetaminophen 325 MG Tablet 650 MG PO (23:54)
[2017-03-03] MEDS: MELATONIN 10 MG TABLET PO (23:54)
[2017-03-04] MEDS: Buprenorphine HCl 2 MG TAB.SUBL SL ×2 (07:30→19:13)
[2017-03-04] MEDS: Nicotine Polacrilex 2 MG GUM PO ×4 (08:35→19:14)
[2017-03-04 10:00] VITALS: BP 125/53; PULSE 53; RESP 16; TEMP 36.3
[2017-03-04] MEDS: FLUoxetine 20 MG Capsule PO (10:09)
[2017-03-04] MEDS: Multivitamins,Ther W-Minerals Tablet 1 TABLET PO (10:09)
[2017-03-04] MEDS: Thiamine Hydrochloride 100 MG Tablet PO (10:09)
[2017-03-04] MEDS: Folic Acid 1 MG Tablet PO (10:09)
[2017-03-04] MEDS: Dicyclomine 10 MG Capsule 20 MG PO ×2 (10:12→16:33)
[2017-03-04] MEDS: Methocarbamol 750 MG Tablet PO ×3 (10:12→21:37)
[2017-03-04] MEDS: Carbidopa/Levodopa 25/100 Tablet PO (10:12)
[2017-03-04] MEDS: Acetaminophen 325 MG Tablet 650 MG PO ×2 (15:00→21:37)
[2017-03-04] MEDS: QUEtiapine 25 MG Tablet PO ×2 (15:03→21:36)
[2017-03-04 15:05] VITALS: BP 105/65; PULSE 55; RESP 16; TEMP 36.6; O2SAT 95
[2017-03-04] MEDS: Ondansetron ODT 4 MG Tablet PO (15:09)
--- NOTE | 2017-03-04 15:16 | PCM.PN.BLA ---
Progress Note Afebrile with stable vital signs. He is 95% saturated on room air. Seems very anxious but calmed down when friends came to visit. Alert, oriented, somewhat tremulous, not diaphoretic today Lungs-clear to auscultation Heart-regular rate and rhythm, no gallop, no rub, no murmur Abdomen-some abdominal cramping, soft, nondistended, normal bowel sounds present. No rashes 1. Acute opiate withdrawal-admitted for medical stabilization for acute opiate withdrawal. Plans on attending an inpatient rehab program post discharge. Will keep him in the hospital until Sunday and discharge of that he can go immediately to [facility]. 2. Alcohol abuse 3. Nicotine addiction Continue [facility] protocol Code Visit Inpatient E&M: 52669 Subs Hosp L2
[2017-03-04 19:09] VITALS: BP 105/59; PULSE 52; RESP 16; TEMP 36.6
[2017-03-04 21:26] VITALS: BP 114/59; PULSE 54; RESP 16; TEMP 36.1
[2017-03-04] MEDS: MELATONIN 10 MG TABLET PO (21:36)
[2017-03-05 06:02] VITALS: BP 110/70; PULSE 50; RESP 18; TEMP 36.2
[2017-03-05] MEDS: Buprenorphine HCl 2 MG TAB.SUBL SL (06:05)
[2017-03-05 10:00] VITALS: BP 94/59; PULSE 58; TEMP 36.6
[2017-03-05] MEDS: Folic Acid 1 MG Tablet PO (10:41)
[2017-03-05] MEDS: Multivitamins,Ther W-Minerals Tablet 1 TABLET PO (10:41)
[2017-03-05] MEDS: Thiamine Hydrochloride 100 MG Tablet PO (10:41)
[2017-03-05] MEDS: FLUoxetine 20 MG Capsule PO (10:41)
[2017-03-05] MEDS: QUEtiapine 25 MG Tablet PO ×2 (10:56→18:43)
[2017-03-05] MEDS: Acetaminophen 325 MG Tablet 650 MG PO (10:57)
[2017-03-05] MEDS: Methocarbamol 750 MG Tablet PO ×2 (10:57→18:43)
[2017-03-05] MEDS: cloNIDine HCl 0.1 MG Tablet PO ×4 (10:57→22:09)
[2017-03-05 11:25] VITALS: BP 94/59; PULSE 58; RESP 18; TEMP 36.6; O2SAT 95
--- NOTE | 2017-03-05 13:24 | PCM.PN.BLA ---
Progress Note No complaints today. Worried about the temptations when he is released from the hospital He will be going to [facility] tomorrow to be evaluated for admission to an inpt rehab program Alert and oriented X 3 Eating well Calmly watching TV and appears to be in no acute distress Lungs - diminished but CTA H- RRR, no MM and no gallop abd - soft, NT,ND, BS's present no edema Impressions 1. Acute opiate withdrawal (heroin) 2. Alcohol abuse 3. Nicotine addiction continue the current drug regimen DC in the AM so that he can go to [facility]. Code Visit Inpatient E&M: 16778 Subs Hosp L1
[2017-03-05] MEDS: Carbidopa/Levodopa 25/100 Tablet PO (15:49)
[2017-03-05] MEDS: Dicyclomine 10 MG Capsule 20 MG PO (15:49)
[2017-03-05 17:00] VITALS: BP 99/53; PULSE 58; RESP 16; TEMP 36.3; O2SAT 95
[2017-03-05 22:00] VITALS: BP 121/72; PULSE 54; RESP 16; TEMP 36.8
[2017-03-05] MEDS: MELATONIN 10 MG TABLET PO (22:03)
[2017-03-06 02:00] VITALS: RESP 16
--- NOTE | 2017-03-06 05:29 | PCM.DC ---
- Discharge Diagnoses Current Active Problems: Current Active and Chronic Problems Drug abuse (Chronic) You will use the following diet at home:: No restrictions Your food should be the consistency of: Regular Your liquids should be the consistency of: Regular/Thin Discharge Activity: Return to Normal Activity Call your doctor if you observe: Fever of 101 or Higher, Shortness of breath, Dizziness, Fainting spells, Chest pain Allergies/Adverse Reactions: Allergies meloxicam Allergy (Verified 01/11/17 09:51) Hives Medications to take at Discharge Fluoxetine HCl [Prozac] 20 mg PO DAILY 01/11/17 Lactobacillus Acidophilus [Acidophilus] 1 cap PO DAILY 01/11/17 Melatonin 10 mg PO QHS 01/11/17 Naproxen 500 mg PO BID PRN 01/11/17 Trazodone HCl [Desyrel] 100 mg PO QHS PRN PRN 01/11/17 Acetaminophen [Tylenol Tablet] 650 mg PO Q6H PRN PRN tablet 01/19/17 Naproxen 500 mg PO TID PRN PRN 03/02/17 Nicotine [Nicoderm Cq] 21 mg TRANSDERM. DAILY 03/02/17 Primary Care Physician: Demetrio Martin MD [Primary Care Provider] - Please follow up with your Primary Care Physician in: 1-2 weeks Proposed Discharge Date: 03/06/17
--- NOTE | 2017-03-06 05:33 | PCM.DC.SUM ---
Discharge Date and Diagnosis - Problem List Patient Problems: Active and Suspected Problems Opiate withdrawal (Acute) Heroin addiction (Acute) Date of Admission: 03/02/17 Date of Discharge: 03/06/17 - Primary Discharge Diagnosis Active and Suspected Problems Opiate withdrawal (Acute) - Secondary Discharge Diagnosis Chronic Problems Restless leg syndrome (Chronic) Depression (Chronic) alcohol abuse (Chronic) Tobacco abuse (Chronic) History of MRSA infection (Chronic) Heroin addiction Hospital Course and Treatment Imaging Results: Laboratory Tests 03/02/17 03/02/17 03/02/17 15:03 15:03 15:03 WBC 6.0 RBC 4.33 L Hgb 12.5 L Hct 37.6 L MCV 86.8 MCH 28.9 MCHC 33.2 RDW 16.3 H RDW Differential 51.0 H Plt Count 125 L MPV 11.5 Immature Gran % (Auto) 0.000 Neut % (Auto) 62.7 Lymph % (Auto) 26.9 Adams % (Auto) 6.7 Eos % (Auto) 3.2 Baso % (Auto) 0.5 Absolute Neuts (auto) 3.7 Absolute Lymphs (auto) 1.60 Total Counted Not Reportable PT 13.6 INR 1.1 Sodium 139 Potassium 3.7 Chloride 106 Carbon Dioxide 26.0 Anion Gap 7 BUN 14 Creatinine 0.86 Estim Creat Clear Calc 97.05 Est GFR (MDRD) Af Amer 119 Est GFR (MDRD) Non-Af 98 BUN/Creatinine Ratio 16.3 Glucose 84 Calcium 8.4 L Total Bilirubin 0.30 AST 14 L ALT 21 Alkaline Phosphatase 67 Total Protein 7.1 Albumin 3.7 Globulin 3.4 Albumin/Globulin Ratio 1.1 Amylase 55 Lipase 271 Urine Opiates Screen Urine Methadone Screen Ur Barbiturates Screen Ur Phencyclidine Scrn Ur Amphetamines Screen U Methamphetamin-MDMA U Benzodiazepines Scrn Urine Cocaine Screen U Cannabinoids Screen Ur Drug Screen Comment Ethyl Alcohol 03/02/17 03/02/17 15:03 15:30 WBC RBC Hgb Hct MCV MCH MCHC RDW RDW Differential Plt Count MPV Immature Gran % (Auto) Neut % (Auto) Lymph % (Auto) Adams % (Auto) Eos % (Auto) Baso % (Auto) Absolute Neuts (auto) Absolute Lymphs (auto) Total Counted PT INR Sodium Potassium Chloride Carbon Dioxide Anion Gap BUN Creatinine Estim Creat Clear Calc Est GFR (MDRD) Af Amer Est GFR (MDRD) Non-Af BUN/Creatinine Ratio Glucose Calcium Total Bilirubin AST ALT Alkaline Phosphatase Total Protein Albumin Globulin Albumin/Globulin Ratio Amylase Lipase Urine Opiates Screen NEGATIVE Urine Methadone Screen NEGATIVE Ur Barbiturates Screen NEGATIVE Ur Phencyclidine Scrn NEGATIVE Ur Amphetamines Screen NEGATIVE U Methamphetamin-MDMA NEGATIVE U Benzodiazepines Scrn NEGATIVE Urine Cocaine Screen NEGATIVE U Cannabinoids Screen NEGATIVE Ur Drug Screen Comment Ethyl Alcohol 109.0 Consultations 03/02/17 14:42 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 He was discharged from that admission to a care home facility for an additional week of vancomycin. He presented to the [facility] office on 03/02 requesting inpatient admission for medical stabilization for opioid withdrawal. He has been using IV heroin. White blood cell count was normal on 03/02 and his hemoglobin is stable at 12.5. Platelets were low at 125,000. BMP was unremarkable. LFTs were normal. The drug panel was negative but the ethyl alcohol level was 109. Patient stated on his previous admission that he quit drinking 1 year ago. He Has used heroin off and on over the past 10 years. He Had been clear for the past year and then got MRSA cellulitis of the arm due to an abrasion and a scrotal abscess due to MRSA. Both required debridement and pain medications and he got hooked again. He was recently at [facility] for rehab. He completed a 72 hour suboxone taper and at the time of DC he has no N/V/D/abd cramping. He is worried what is going to happen when he gets out and is exposed to drug abusing friends. He plans on presenting to [facility] on 03/06 for intake to arrange in residential facilty fo rehab. This note was generated with [employer] dictation software. It may contain incorrect words, spelling, and punctuation that were not noted in checking the note before signing. Discharge Activity: Return to Normal Activity Call your doctor if you observe: Fever of 101 or Higher, Shortness of breath, Dizziness, Fainting spells, Chest pain Home Medications: Medications to take at Discharge Fluoxetine HCl [Prozac] 20 mg PO DAILY 01/11/17 Lactobacillus Acidophilus [Acidophilus] 1 cap PO DAILY 01/11/17 Melatonin 10 mg PO QHS 01/11/17 Naproxen 500 mg PO BID PRN 01/11/17 Trazodone HCl [Desyrel] 100 mg PO QHS PRN PRN 01/11/17 Acetaminophen [Tylenol Tablet] 650 mg PO Q6H PRN PRN tablet 01/19/17 Naproxen 500 mg PO TID PRN PRN 03/02/17 Nicotine [Nicoderm Cq] 21 mg TRANSDERM. DAILY 03/02/17 Primary Care Physician: Demetrio Martin MD [Primary Care Provider] - Please follow up with your Primary Care Physician in: 1-2 weeks Disposition: going to 180 for intake Minutes spent on discharge:: 25 Patient Condition:: Stable Meaningful Use Info Meaningful Use Diagnoses (Choose all that apply): None applicable
--- NOTE | 2017-03-06 05:43 | DS.PCM_ITS ---
Discharge Date and Diagnosis - Problem List Patient Problems: Active and Suspected Problems Opiate withdrawal (Acute) Heroin addiction (Acute) Date of Admission: 03/02/17 Date of Discharge: 03/06/17 - Primary Discharge Diagnosis Active and Suspected Problems Opiate withdrawal (Acute) - Secondary Discharge Diagnosis Chronic Problems Restless leg syndrome (Chronic) Depression (Chronic) alcohol abuse (Chronic) Tobacco abuse (Chronic) History of MRSA infection (Chronic) Heroin addiction Hospital Course and Treatment Imaging Results: Laboratory Tests 03/02/17 03/02/17 03/02/17 15:03 15:03 15:03 WBC 6.0 RBC 4.33 L Hgb 12.5 L Hct 37.6 L MCV 86.8 MCH 28.9 MCHC 33.2 RDW 16.3 H RDW Differential 51.0 H Plt Count 125 L MPV 11.5 Immature Gran % (Auto) 0.000 Neut % (Auto) 62.7 Lymph % (Auto) 26.9 Cata[place] % (Auto) 6.7 Eos % (Auto) 3.2 Baso % (Auto) 0.5 Absolute Neuts (auto) 3.7 Absolute Lymphs (auto) 1.60 Total Counted Not Reportable PT 13.6 INR 1.1 Sodium 139 Potassium 3.7 Chloride 106 Carbon Dioxide 26.0 Anion Gap 7 BUN 14 Creatinine 0.86 Estim Creat Clear Calc 97.05 Est GFR (MDRD) Af Amer 119 Est GFR (MDRD) Non-Af 98 BUN/Creatinine Ratio 16.3 Glucose 84 Calcium 8.4 L Total Bilirubin 0.30 AST 14 L ALT 21 Alkaline Phosphatase 67 Total Protein 7.1 Albumin 3.7 Globulin 3.4 Albumin/Globulin Ratio 1.1 Amylase 55 Lipase 271 Urine Opiates Screen Urine Methadone Screen Ur Barbiturates Screen Ur Phencyclidine Scrn Ur Amphetamines Screen U Methamphetamin-MDMA U Benzodiazepines Scrn Urine Cocaine Screen U Cannabinoids Screen Ur Drug Screen Comment Ethyl Alcohol 03/02/17 03/02/17 15:03 15:30 WBC RBC Hgb Hct MCV MCH MCHC RDW RDW Differential Plt Count MPV Immature Gran % (Auto) Neut % (Auto) Lymph % (Auto) [place] % (Auto) Eos % (Auto) Baso % (Auto) Absolute Neuts (auto) Absolute Lymphs (auto) Total Counted PT INR Sodium Potassium Chloride Carbon Dioxide Anion Gap BUN Creatinine Estim Creat Clear Calc Est GFR (MDRD) Af Amer Est GFR (MDRD) Non-Af BUN/Creatinine Ratio Glucose Calcium Total Bilirubin AST ALT Alkaline Phosphatase Total Protein Albumin Globulin Albumin/Globulin Ratio Amylase Lipase Urine Opiates Screen NEGATIVE Urine Methadone Screen NEGATIVE Ur Barbiturates Screen NEGATIVE Ur Phencyclidine Scrn NEGATIVE Ur Amphetamines Screen NEGATIVE U Methamphetamin-MDMA NEGATIVE U Benzodiazepines Scrn NEGATIVE Urine Cocaine Screen NEGATIVE U Cannabinoids Screen NEGATIVE Ur Drug Screen Comment Ethyl Alcohol 109.0 Consultations 03/02/17 14:42 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 He was discharged from that admission to a senior living facility for an additional week of vancomycin. He presented to the [facility] office on 03/02 requesting inpatient admission for medical stabilization for opioid withdrawal. He has been using IV heroin. White blood cell count was normal on 03/02 and his hemoglobin is stable at 12.5. Platelets were low at 125,000. BMP was unremarkable. LFTs were normal. The drug panel was negative but the ethyl alcohol level was 109. Patient stated on his previous admission that he quit drinking 1 year ago. He Has used heroin off and on over the past 10 years. He Had been clear for the past year and then got MRSA cellulitis of the arm due to an abrasion and a scrotal abscess due to MRSA. Both required debridement and pain medications and he got hooked again. He was recently at [facility] for rehab. He completed a 72 hour suboxone taper and at the time of DC he has no N/V/D/abd cramping. He is worried what is going to happen when he gets out and is exposed to drug abusing friends. He plans on presenting to [facility] on 03/06 for intake to arrange in residential facilty fo rehab. This note was generated with [employer] dictation software. It may contain incorrect words, spelling, and punctuation that were not noted in checking the note before signing. Discharge Activity: Return to Normal Activity Call your doctor if you observe: Fever of 101 or Higher, Shortness of breath, Dizziness, Fainting spells, Chest pain Home Medications: Medications to take at Discharge Fluoxetine HCl [Prozac] 20 mg PO DAILY 01/11/17 Lactobacillus Acidophilus [Acidophilus] 1 cap PO DAILY 01/11/17 Melatonin 10 mg PO QHS 01/11/17 Naproxen 500 mg PO BID PRN 01/11/17 Trazodone HCl [Desyrel] 100 mg PO QHS PRN PRN 01/11/17 Acetaminophen [Tylenol Tablet] 650 mg PO Q6H PRN PRN tablet 01/19/17 Naproxen 500 mg PO TID PRN PRN 03/02/17 Nicotine [Nicoderm Cq] 21 mg TRANSDERM. DAILY 03/02/17 Primary Care Physician: Demetrio Martin MD [Primary Care Provider] - Please follow up with your Primary Care Physician in: 1-2 weeks Disposition: going to 180 for intake Minutes spent on discharge:: 25 Patient Condition:: Stable Meaningful Use Info Meaningful Use Diagnoses (Choose all that apply): None applicable
[2017-03-06 06:00] VITALS: BP 109/63; PULSE 53; RESP 18; TEMP 35.6
[2017-03-06 08:42] VITALS: BP 109/63; PULSE 53; RESP 18; TEMP 35.6; O2SAT 98
[2017-03-06] MEDS: Multivitamins,Ther W-Minerals Tablet 1 TABLET PO (08:47)
[2017-03-06] MEDS: Folic Acid 1 MG Tablet PO (08:47)
[2017-03-06] MEDS: Thiamine Hydrochloride 100 MG Tablet PO (08:47)
[2017-03-06] MEDS: Nicotine Polacrilex 2 MG GUM PO (08:47)
[2017-03-06] MEDS: FLUoxetine 20 MG Capsule PO (08:48)
[2017-03-06 08:59] VITALS: BP 109/63; PULSE 53; RESP 18; TEMP 35.6
--- NOTE | 2017-03-06 09:33 | NURSING ---
Patient notified CHRIST Macias that he wanted to talk to the doctor because he doesn't trust himself, has money in his pocket and doesn't know what he will do with it. This RN called Colleen Cedeno in [facility] office- states that patient will be d/c'ed today per order and that he can go directly to 180 anytime from 8 to 4. Patient's tapered dose of Subutex was completed 03/05/17 at 0600. Patient notified of same.
--- NOTE | 2017-03-06 09:49 | NURSING ---
wound photo: right lateral distal arm
== END 2017-03-06 10:52 | disposition home or self-care (01) | DRG 435 ==
PROVIDERS: Admitting Provider Hospitalist; Family Provider Internal Medicine; PCP Internal Medicine; Visit Provider Internal Medicine
DX: F11.23 Opioid dependence with withdrawal (principal); F10.10 Alcohol abuse, uncomplicated; F17.200 Nicotine dependence, unspecified, uncomplicated; G25.81 Restless legs syndrome; F32.9 Major depressive disorder, single episode, unspecified; Z86.14 Personal history of Methicillin resistant Staphylococcus aureus infection; Y90.5 Blood alcohol level of 100-119 mg/100 ml; Z79.899 Other long term (current) drug therapy
CPT/HCPCS: 80053; 80307; 80320; 82150; 83690; 85025; 85610; 87070; 87205; 97802; 99218; G0378; G0379; G0480

== ENCOUNTER 2017-03-19 08:52 | Outpatient (RCR) | payer SELFPAY ==
[2017-03-12 01:26] VITALS: BP 142/86; PULSE 69; RESP 18; TEMP 37.7; BMI 29.5
[2017-03-19 09:59] VITALS: BP 125/77; PULSE 71; RESP 16; TEMP 36.4; BMI 29.5
--- NOTE | 2017-03-19 10:30 | PN.PCM_ITS ---
Type of Wound Date of Service: 03/19/17 Chief Complaint: Nonhealing MRSA abscess ulcer dorsal ulnar aspect distal right forearm. History of Wound: Surgery 01/12/17 - 1. Surgical preparation dorsal ulnar aspect distal right forearm with incision and drainage abscess involving muscle and tendon (12.25 cm2). 2. Surgical preparation right lower lip with incision and drainage abscess involving underlying muscle (1 cm2). Wound care - Silver with adaptic over the tendon. Operative culture - MRSA in the right forearm and right lower lip. He stopped the Vancomycin IV when he was discharged from the [facility]. He was started on Doxycycline and has finished them. Prealbumin from 01/13/17 was 14.1. Encourage nutritional supplementation with protein to help the healing process. Today he denies any fever. His appetite is good. He was recently hospitalized for recent Heroin usage and opiod withdrawal. Progress of Wound: Improved as the exposed tendon has been covered. - Physical Exam Vital Signs Temp Pulse Resp BP 97.5 F L 71 16 125/77 H 03/19/17 09:59 03/19/17 09:59 03/19/17 09:59 03/19/17 09:59 Wound Measurements and Assessment - Nurse 1 - General Ulcer Measurement Start: 03/19/17 09:59 Freq: Status: Active Protocol: Activity Type Activity Date Activity User E-Sign Co-Sign Detail Recorded Client Recorded Date Recorded By Document 03/19/17 09:59 DL [id number] 03/19/17 10:07 DL 03/19/17 09:59 Wound Center Nurse 1 [Ulcer Assessment Protocol: .WD.LOC] #2- RFA -Current Size (cm) - Length 2.1 -Current Size (cm) - Width 2.6 -Current Size (cm) - Depth 0.3 -Total Square Cm 5.46 -Photo Taken Yes -Exudate Amt Medium (34-66%) -Exudate Type Serosanguineous -Wound Margin Distinct, Outline Attached -Granulation Amt Large (67-100%) -Granulation Quality [place] -Necrosis Amt Small (1-33%) -Necrotic Tissue Type Adherent Slough -Structure Exposed N/A -Texture (Antonella-wound Skin Appearance) No Abnormality -Moisture (Antonella-wound Skin Appearance No Abnormality ) -Color (Antonella-wound Skin Appearance) No Abnormality -Temperature (Antonella-wound Skin No Abnormality Appearance) (Pt Warm) -Tenderness on Palpation (Antonella-wound No Skin Appearance) -Ulcer Cleansing Wound Cleanser -Foul Odor after Cleansing No -Anesthetic Used 4% Lidocaine Solution XAVIER - Nurse 2 - General Ulcer CM Notes Start: 03/19/17 09:59 Freq: Status: Active Protocol: Activity Type Activity Date Activity User E-Sign Co-Sign Detail Recorded Client Recorded Date Recorded By Document 03/19/17 10:28 MARIAN [id number] 03/19/17 10:29 MARIAN 03/19/17 10:28 Wound Center Nurse 2 [Procedure/Treatment] -Time 10:28 -Correct Patient Yes -Correct Side, Site, Position Yes -Correct Procedure Yes -Procedure Performed Yes -Type of Procedure Debridement -Clinical Debridement Subcutaneous -Post Debridement Size (cm) - Length 2.2 -Post Debridement Size (cm) - Width 2.6 -Post Debridement Size (cm) - Depth 0.3 -Total Square Cm 5.72 -Wound/Ulcer Outcome Not Healed -Ulcer Cleansing Rinsed/ Irrigated with Saline -Foul Odor after Cleansing No -Bioengineered Tissue No -Cetacaine [place] No -Bleeding Controlled with Pressure -Treatment Response Procedure Tolerated Well [See Physician Procedure note for Specifics] Pain Scale: 0-10 Numeric [Pain] -Is Patient Pain Free? Yes Debridement Note Post-Debridement Measurements/Treatment XAVIER - Nurse 2 - General Ulcer CM Notes Start: 03/19/17 09:59 Freq: Status: Active Protocol: Activity Type Activity Date Activity User E-Sign Co-Sign Detail Recorded Client Recorded Date Recorded By Document 03/19/17 10:28 MARIAN [id number] 03/19/17 10:29 03/19/17 10:28 Wound Center Nurse 2 #2- RFA -Time 10:28 -Correct Patient Yes -Correct Side, Site, Position Yes -Correct Procedure Yes -Procedure Performed Yes -Type of Procedure Debridement -Clinical Debridement Subcutaneous -Post Debridement Size (cm) - Length 2.2 -Post Debridement Size (cm) - Width 2.6 -Post Debridement Size (cm) - Depth 0.3 -Total Square Cm 5.72 -Wound/Ulcer Outcome Not Healed -Ulcer Cleansing Rinsed/ Irrigated with Saline -Foul Odor after Cleansing No -Bioengineered Tissue No -Cetacaine [place] No -Bleeding Controlled with Pressure -Treatment Response Procedure Tolerated Well Pain Scale: 0-10 Numeric Is Patient Pain Free? Yes Wound debrided: #2 Dorsal ulnar aspect distal right forearm area. Laterality: Right Wound Grade/Stage: 3. Type of Debridement: Excisional debridement Anesthesia Used: 4% Lidocaine Solution Depth: Down to and including healthy tissue, in the subcutaneous layer - exposed tendon has been covered. Percentage of wound debrided: 100 Instrument Used: 5mm curette Tissue Removed: subcutaneous tissue. Severity: Fat Layer Exposed Amount of bleeding with debridement: Mild Bleeding Controlled with: Pressure Patient tolerated procedure well Assessment/Plan Assessment: 1. Nonhealing MRSA abscess ulcer dorsal ulnar aspect distal right forearm. 2. MRSA abscess ulcer right lower lip, healed. 3. MRSA. 4. Smoker. 5. Recent hospitalization for Heroin withdrawal. Plan: The Vancomycin has been stopped since he has been discharged from the [facility]. He was started on Doxycycline for the MRSA and has finished them. Continue Silver dressing changes daily on the distal right forearm ulcer. May use adaptic over the exposed tendon on the right forearm ulcer. May moisten the Silver. He is at work and is tolerating it ok. He was recently hospitalized for Heroin withdrawal. So no more Percocet will be given to the patient even though he did ask for some today. Prealbumin from 01/13/17 was 14.1. Encourage nutritional supplementation with protein to help the healing process. Encouraged the patient to stop smoking as it may have deleterious effects on wound healing. Followup 3 weeks.
== END 2017-04-11 23:59 ==
LOC: WC 08:52
PROVIDERS: Family Provider Internal Medicine; PCP Internal Medicine; Visit Provider Surgery
DX: L98.492 Non-pressure chronic ulcer of skin of other sites with fat layer exposed (principal); L02.91 Cutaneous abscess, unspecified; B95.62 Methicillin resistant Staphylococcus aureus infection as the cause of diseases classified elsewhere; F11.20 Opioid dependence, uncomplicated; F17.200 Nicotine dependence, unspecified, uncomplicated
CPT/HCPCS: 11042

== ENCOUNTER 2017-06-25 17:10 | Emergency (ER) | payer MEDICAID, SELFPAY ==
[2017-06-25 17:10] VITALS: BP 128/82; PULSE 65; RESP 18; TEMP 36.1; O2SAT 99; BMI 26.6
--- NOTE | 2017-06-25 17:35 | RAD_ITS ---
STUDY: X-RAY - RIGHT KNEE REASON FOR EXAM: Male, 57 years old. Trauma TECHNIQUE: 4 view(s) of the knee. COMPARISON: 09/06/2015 FINDINGS: There is no evidence of fracture or dislocation. There are stable moderate degenerative changes. There is a moderate suprapatellar joint effusion. There is superior elevation of the patella. A patella tendon injury cannot be excluded. RAD/Knee 4 or More Views IMPRESSION: No fracture or dislocation. Stable moderate degenerative changes. Moderate suprapatellar joint effusion. Superior elevation of the patella. Patella tendon injury cannot be excluded. Electronically Signed: Aniceto Thomas, at 18:11 EDT Tel , Service support ,
--- NOTE | 2017-06-25 19:22 | ED.VISSUMM ---
- ER Visit Summary Date of Service: 06/25/17 Chief Complaint: Right knee injury History of Present Illness: The patient is a 57 M who presents with a right knee injury. He was moving a couch 2 days ago. He states that a step broke and he fell about 2 feet straight down. He has been able to ambulate although it is been painful. He has a history of prior knee problems and has had steroid injections and knee arthroscopy. Physical Examination: Afebrile vitals are stable Heart regular rate and rhythm Lungs are clear Active full range of motion of the right knee extensor mechanism intact there is an effusion it is not hot to the touch or erythematous Neurovascularly intact distally with brisk capillary refill and normal sensation Test Results: Knee x-ray shows a moderate-sized suprapatellar effusion as well as superior elevation of the patella. Emergency Department Course and Treatment: Patient's extensor mechanism is intact he does not have patellar tendon tenderness I do not believe this represents a patellar tendon injury he was given an Hao wrap. He was advised on rest ice and elevation was given a prescription for short course of [place] for acute pain control. He was referred to orthopedics. He was discharged. Treatment Plan: [] Disposition: Discharge Impression: Acute right knee sprain This note was generated with [employer] dictation software. It may contain incorrect words, spelling, and punctuation that were not noted in review of the chart prior to signing ED Disposition - Plan for ED Patient: Chief Complaint: Lower Extremity Injury Referrals: Demetrio Martin MD [Primary Care Provider] -
--- NOTE | 2017-06-25 19:25 | ED.DEP ---
ED Disposition - Plan for ED Patient: Chief Complaint: Lower Extremity Injury Instructions: ED Effusion Knee, ED Sprain Knee Prescriptions: Hydrocodone Bitart/Apap 5-325 [[place] 5/325] 1 - 2 tab PO Q4H PRN PRN 2 Days #8 tab PRN Reason: Pain Referrals: Demetrio Martin MD [Primary Care Provider] - Stevie Almaraz DO [STAFF PHYSICIAN] -
[2017-06-25 19:34] VITALS: BP 118/78; PULSE 62; RESP 18; O2SAT 99
== END 2017-06-25 19:35 | disposition home or self-care (01) ==
LOC: ED 19:32
PROVIDERS: Emergency Provider Emergency Medicine; Family Provider Internal Medicine; PCP Internal Medicine
DX: S83.91XA Sprain of unspecified site of right knee, initial encounter (principal); W17.89XA Other fall from one level to another, initial encounter; Y93.9 Activity, unspecified; Y92.9 Unspecified place or not applicable; Z72.0 Tobacco use
CPT/HCPCS: 73564; 99282

== ENCOUNTER 2017-07-31 11:51 | Inpatient (IN) | payer MEDICAID, SELFPAY ==
[2017-07-31 12:19] VITALS: BMI 25.8; BMI 25.9
[2017-07-31 12:29] VITALS: BP 124/73; PULSE 52; RESP 18; TEMP 36.6; O2SAT 98
--- NOTE | 2017-07-31 13:23 | HP.PCM_ITS ---
Problem List (1) Heroin addiction Status: Acute (2) Opiate withdrawal Status: Acute (3) Depression Status: Chronic (4) History of MRSA infection Status: Chronic (5) History of alcohol abuse Status: Chronic (6) Restless leg syndrome Status: Chronic (7) Tobacco abuse Status: Chronic (8) Polysubstance abuse Status: Chronic History of Present Illness Date of Admission: 07/31/17 Chief Complaint: requesting admission for medical stabilization for alcohol and opiate withdrawal. The patient is a 57 year old M with a PMH of alcoholism, polysubstance abuse, CAREY, remote PUD, remote MRSA infections of the scrotum and the arm, tobacco dependence, multiple failed rehab attempts and reported RLS who presented to the [facility] office at [facility] on 07/31/17 requesting admission for medical stabilization for alcohol and opiate withdrawal. His intent is to go to an inpt treatment program at [place]. When he was in the hospital in February with [facility] his plan was to follow up with [facility] at [place] but, he failed to do this and within 1 week of [place] he was using again. He is c/o abdominal cramping, tremors and restlessness. He tells me that he no longer injects heroin....he is snorting instead. He is also using Meth and Adderall and drinking 6-12 beers a day. He is afebrile and vital signs are stable. He is not tachycardic and blood pressure is within normal limits. Pulse ox on room air is 98%. CBC is remarkable for a low platelet count of 114,000 which is likely due to the toxic effects of alcohol on bone marrow. BMP is unremarkable. Liver profile is normal. He is being admitted to the [facility] for alcohol and opiate withdrawal. He denies hallucinations and also denies any hx of DT's. Past Medical History Past Medical History (Chronic Problems): Chronic Problems Polysubstance abuse (Chronic) Restless leg syndrome (Chronic) Depression (Chronic) History of alcohol abuse (Chronic) Tobacco abuse (Chronic) History of MRSA infection (Chronic) Allergies meloxicam Allergy (Verified 06/25/17 19:17) Hives Home Medications: Ambulatory Orders Medication Instructions Recorded Naproxen 550 mg PO BID PRN PRN 03/02/17 Hydrocodone Bitart/Apap 5-325 1 - 2 tab PO Q4H PRN PRN 2 Days #8 04/16/18 [[place] 5/325] tab Gabapentin [Neurontin] 600 mg PO TIDCM 07/31/17 Melatonin 5 mg PO DAILY 07/31/17 Nicotine Polacrilex [Nicotine 4 mg BC Q4H PRN 07/31/17 Lozenge] Sildenafil Citrate [Sildenafil] 2 tab PO DAILY PRN 07/31/17 Venlafaxine HCl [Effexor Xr] 75 mg PO DAILY 07/31/17 Surgical History: - Psychiatric History: Depression Lives: Alone Smoking Status: Current every day smoker Tobacco Use: Cigarettes Alcohol: Heavy Drugs: Heroin, - - methamphetamine, Adderall - *Family History Maternal History Items: Cancer Paternal History Items: No pertinent history Review of Systems Constitutional: Reports: Malaise. Denies: Chills, Fever, Weight Change Eyes: Denies: Vision Change HEENT: Reports: - - rhinorrhea. Denies: Head Aches, Sinus Congestion, Sinus Drainage Cardiovascular: Denies: Chest Pain, Palpitations Respiratory: Denies: Cough, Shortness of breath at rest, Sputum production Gastrointestinal: Denies: Abdominal Pain, Nausea, Vomiting Genitourinary: Denies: Dysuria Musculoskeletal: Denies: Joint Pain, Joint Tenderness Skin: Denies: Rash, Wounds Neurological: Denies: Numbness, Tingling, Focal weakness Psychiatric: Reports: Depression. Denies: Homicidal Ideations, Suicidal Ideations Endocrine: Denies: Change in Body Habitus Hematologic/ Lymphatic: Denies: Hx of blood clot VTE Information - Inpt Only VTE Present on Admission: No VTE Mechan Device Prophylaxis: None VTE Pharm Prophylaxis ordered?: No Reason prophylaxis not ordered:: Treatment Not Indicated Objective: - Physical Exam General: Alert, Oriented x3, Cooperative, No apparent distress HEENT: Atraumatic, PERRLA, EOMI Oral: Moist Mucosa, No Gingival or Mucosal Lesions/ Ulcerations Neck: Supple, No JVD, Negative Carotid Bruits, Trachea Midline, Thyroid Normal Size and Texture Lungs: Clear to auscultation, No rhonchi, No wheeze, No rales, Diminished Cardiovascular: Regular rate, Regular Rhythm, Normal S1, Normal S2, No murmurs Abdomen: Bowel Sounds Present, Soft, Non Tender, Non-Distended, No Hepato- splenomegaly Extremities: No clubbing, No cyanosis, No edema Skin: No rashes, Ulcer/ Wound - Right forearm: Open ulcer/wound measuring about 3 x 2 cm on the lateral aspect of the right forearm with surrounding minimal erythema, no drainage or pus. Lymphatic: No Cervical, Supraclavicular, or Inguinal Adenopathy Neurological: Cranial nerves II-XII grossly intact, Motor Exam 5/5 strength throughout Psych/Mental Status: Normal Affect, Appropriate, Alert and oriented to time, place, person, mood and affect - Physical Exam Vital Signs Temp Pulse Resp BP Pulse Ox 97.8 F 52 L 18 124/73 H 98 07/31/17 12:29 07/31/17 12:29 07/31/17 12:29 07/31/17 12:29 07/31/17 12:29 Oxygen Delivery Method Room Air Weight: 175 lb 3.2 oz Body Mass Index (BMI) 25.8 Assessment/Plan Impressions 1. Acute alcohol withdrawal 2. Acute opiate withdrawal 3. Tobacco dependence 4. Obstructive sleep apnea 5. Multiple failed rehab attempts 6. RLS? or using Gabapentin to potentiate the high with heroin? Initiate [facility] protocol for acute opiate withdrawal Initiate Librium taper Check CBC, CMP Patient plans on attending an inpatient rehab program at discharge. Code Visit Inpatient E&M: 40604 Init Hosp L2
[2017-07-31 14:00] VITALS: BP 117/78; PULSE 61; RESP 18; TEMP 36.6; O2SAT 98
[2017-07-31 14:07] LABS: Basophil# 0.03 X10^3/uL; Basophil% 0.5 % (0-1); Eosinophil# 0.05 X10^3/uL; Eosinophils% 0.9 % (0-5); Hematocrit 41.9 % (40-54); Hemoglobin 14.4 g/dl (13.0-16.5); Lymphocyte % 19.8 % (19-41); Mean Corp Hgb Conc 34.4 g/gl (32-36); Mean Corpuscular Hgb 30.4 pg (27.0-32.0); Mean Corpuscular Volume 88.4 fL (80-94); Mean Platelet Vol. 11.8 fl (6.2-12.0); Monocyte% 7.2 % (0-10); Neutrophil # 3.97 X10^3/uL (2.7-7.7); Neutrophil % 71.6 % (47-70); POSITIVE COUNT NO; POSITIVE DIFFERENTIAL NO; POSITIVE MORPHOLOGY NO; Platelet Count 114 K/mm3 (150-450); RBC Distribution Width CV 15.6 % (11.6-14.6); RBC Distribution Width SD 50.4 fl (35.1-43.9); Red Blood Count 4.74 M/mm3 (4.6-6.2); White Blood Count 5.6 K/mm3 (4.4-11.0)
[2017-07-31] MEDS: chlordiazePOXIDE 25 MG Capsule PO ×2 (14:07→20:44)
[2017-07-31] MEDS: cloNIDine HCl 0.1 MG Tablet PO ×2 (14:08→18:03)
[2017-07-31] MEDS: Buprenorphine HCl 2 MG TAB.SUBL SL ×2 (14:08→22:46)
[2017-07-31 14:27] LABS: ALB/GLOB Ratio 1.1 RATIO (0.9-2.4); AST(SGOT) 19 U/L (15-37); Alanine Aminotransfer ALT/SGPT 25 U/L (16-61); Albumin, Serum 3.8 g/dL (3.2-5.0); Alkaline Phosphatase 79 U/L (45-117); Anion Gap 9 (5-15); BUN 18 mg/dL (7-18); Calcium,Total 8.8 mg/dL (8.5-10.1); Chloride 104 mmol/L (98-107); Creatinine, Serum 0.95 mg/dL (0.70-1.30); EST Glomerular Filtration Rate 88 mL/min (>60); Est Glom Filt Rate - Afr Amer 106 mL/min (>60); Estimated Creatinine Clearance 87.86 ml/min; Globulin 3.6 g/dL (2.2-4.2); Glucose 154 mg/dL (74-106); Phosphorus 3.4 mg/dL (2.5-4.9); Protein, Total 7.4 g/dL (6.4-8.2); Sodium Level 141 mmol/L (136-145)
[2017-07-31] MEDS: Tuberculin,Purif.prot.deriv. 50 TU/ML Vial 5 ML ID (16:36)
[2017-07-31] MEDS: QUEtiapine 25 MG Tablet PO ×2 (16:44→22:46)
[2017-07-31] MEDS: Methocarbamol 750 MG Tablet PO (16:44)
[2017-07-31 17:58] VITALS: BP 110/71; PULSE 64; RESP 18; TEMP 36.9; O2SAT 98
[2017-07-31 22:00] VITALS: BP 94/60; PULSE 58; RESP 16; TEMP 36.4
[2017-07-31] MEDS: Ibuprofen 600 MG Tablet PO (22:47)
[2017-08-01] VITALS (7 sets, daily range): BP systolic 102–111; BP diastolic 65–81; PULSE 50–68; RESP 16; TEMP 36.4–36.8
[2017-08-01] MEDS: chlordiazePOXIDE 25 MG Capsule PO ×4 (02:14→23:49)
[2017-08-01] MEDS: Buprenorphine HCl 2 MG TAB.SUBL SL ×3 (06:21→21:40)
[2017-08-01] MEDS: Dicyclomine 10 MG Capsule 20 MG PO (08:54)
[2017-08-01] MEDS: Ibuprofen 600 MG Tablet PO ×3 (09:11→23:49)
--- NOTE | 2017-08-01 10:20 | SLEEP ---
Seen patient in inpt unit, I educated the importance of treating sleep disorders. Patient has a previous dx of CAREY and states he no longer owns his machine and was not compliant. Patient states he is very interested in getting a sleep study redone, last one was 5+ years ago. He verbalized his understanding and need of treatment.
[2017-08-01] MEDS: QUEtiapine 25 MG Tablet PO ×3 (10:21→23:49)
[2017-08-01] MEDS: Methocarbamol 750 MG Tablet PO ×2 (10:21→21:40)
[2017-08-01] MEDS: cloNIDine HCl 0.1 MG Tablet PO ×4 (10:22→21:43)
--- NOTE | 2017-08-01 18:30 | PCM.PROGNOTE ---
Subjective: Afebrile, vital signs stable She was sleeping when I entered the room. He is not restless. He tells me he slept well last night. He ate 100% of his lunch and is calling to order more food. Denies nausea, diarrhea, abdominal pain. He denies hallucinations. He has a very mild tremor of his hands. He is requesting nicotine gum in addition to the nicotine patch. Objective: PHYSICAL EXAM: GENERAL: alert, oriented X 3, Cooperative, NAD ORAL: moist mucosa, no mucosal lesions NECK: No JVD, supple, trachea midline LUNGS: CTA, symmetric chest expansion HEART: RRR, Normal S1 and S2, no rub, no gallop ABDOMEN: soft, NT, ND, BS present, no guarding with palpation EXTREMITIES: no edema, no cyanosis, no calf tenderness SKIN: No rashes, no breakdown NEUROLOGIC: no focal neurologic deficits, mild tremors of the hands with no asterixis PSYCH: appropriate, normal affect, pleasant - Physical Exam Vital Signs Temp Pulse Resp BP Pulse Ox 98.1 F 60 16 110/76 98 08/01/17 17:31 08/01/17 17:31 08/01/17 17:31 08/01/17 17:31 07/31/17 17:58 Oxygen Delivery Method Room Air Weight: 175 lb 4.28 oz Body Mass Index (BMI) 25.8 Intake and Output for Last 24 Hours 07/30/17 07/31/17 08/01/17 23:59 23:59 23:59 Intake Total 750 / 750 400 / 400 Balance 750 / 750 400 / 400 Medical Necessity - Tobacco Use Smoking Status: Current every day smoker Tobacco Use: Cigarettes Assessment/Plan Impressions 1. Acute alcohol withdrawal 2. Acute opiate withdrawal 3. Tobacco dependence 4. Obstructive sleep apnea 5. Multiple failed rehab attempts 6. RLS? or using Gabapentin to potentiate the high with heroin? Continue with a Librium taper and Suboxone. Patient was instructed that he may choose either nicotine gum or a nicotine patch but not both. Code Visit Inpatient E&M: 97816 Subs Hosp L2
[2017-08-02 06:00] VITALS: BP 109/73; PULSE 57; RESP 16; TEMP 36.6
[2017-08-02] MEDS: Buprenorphine HCl 2 MG TAB.SUBL SL ×2 (06:25→18:41)
[2017-08-02] MEDS: Ibuprofen 600 MG Tablet PO ×2 (06:25→18:46)
--- NOTE | 2017-08-02 06:59 | PCM.PROGNOTE ---
Subjective: Afebrile, vital signs stable. No complaints other than feeling tired. Denies nausea/vomiting, diarrhea, abdominal pain. Eating 100% plus of his diet. Objective: PHYSICAL EXAM: GENERAL: alert, oriented X 3, Cooperative, NAD, present and interactive ORAL: moist mucosa, no mucosal lesions NECK: No JVD, supple, trachea midline LUNGS: CTA, symmetric chest expansion HEART: RRR, Normal S1 and S2, no rub, no gallop ABDOMEN: soft, NT, ND, BS present, no guarding with palpation EXTREMITIES: no edema, no cyanosis, no calf tenderness SKIN: No rashes, no breakdown NEUROLOGIC: no focal neurologic deficits, mild tremors of the hands with no asterixis PSYCH: appropriate, normal affect, pleasant - Physical Exam Vital Signs Temp Pulse Resp BP Pulse Ox 98 F 57 L 16 109/73 98 08/02/17 06:00 08/02/17 06:00 08/02/17 06:00 08/02/17 06:00 07/31/17 17:58 Oxygen Delivery Method Room Air Weight: 175 lb 4.28 oz Body Mass Index (BMI) 25.8 Intake and Output for Last 24 Hours 07/31/17 08/01/17 08/02/17 23:59 23:59 23:59 Intake Total 750 / 750 400 / 400 Balance 750 / 750 400 / 400 Medical Necessity - Tobacco Use Smoking Status: Current every day smoker Tobacco Use: Cigarettes Assessment/Plan Impressions 1. Acute alcohol withdrawal 2. Acute opiate withdrawal 3. Tobacco dependence 4. Obstructive sleep apnea 5. Multiple failed rehab attempts 6. RLS? or using Gabapentin to potentiate the high with heroin? Continue with a Librium taper and Suboxone. Librium taper and Suboxone will conclude tomorrow and he is planning on going to an inpt facility at [place]
[2017-08-02 10:00] VITALS: BP 113/84; PULSE 63; RESP 16; TEMP 36.4
[2017-08-02] MEDS: chlordiazePOXIDE 25 MG Capsule PO ×2 (10:41→15:14)
[2017-08-02] MEDS: cloNIDine HCl 0.1 MG Tablet PO ×3 (10:42→21:22)
[2017-08-02] MEDS: Dicyclomine 10 MG Capsule 20 MG PO (10:42)
[2017-08-02] MEDS: Methocarbamol 750 MG Tablet PO ×2 (10:42→19:42)
[2017-08-02] MEDS: QUEtiapine 25 MG Tablet PO ×2 (12:26→18:46)
[2017-08-02 14:00] VITALS: BP 110/71; PULSE 60; RESP 16; TEMP 36.4
--- NOTE | 2017-08-02 15:42 | NURSING ---
plan for patient pt be picked up Thursday 08/03 at 1200 by [facility] staff. pt had his home med prescriptions transferred from [place] to [facility] retail pharmacy. spoke with Efren at this time, the scripts are being filled and pt can pick them up prior to discharge.
[2017-08-02 18:25] VITALS: BP 118/73; PULSE 53; RESP 16; TEMP 36.6
[2017-08-02 21:28] VITALS: BP 104/66; PULSE 62; RESP 18; TEMP 36.4
[2017-08-03] MEDS: Ibuprofen 600 MG Tablet PO ×2 (01:23→09:41)
[2017-08-03] MEDS: QUEtiapine 25 MG Tablet PO ×2 (01:24→09:41)
[2017-08-03] MEDS: cloNIDine HCl 0.1 MG Tablet PO (01:24)
[2017-08-03 01:27] VITALS: BP 101/67; PULSE 65; RESP 16; TEMP 36.3
[2017-08-03] MEDS: chlordiazePOXIDE 25 MG Capsule PO (03:45)
[2017-08-03 06:03] VITALS: BP 113/73; PULSE 56; RESP 16; TEMP 36.4
[2017-08-03] MEDS: Buprenorphine HCl 2 MG TAB.SUBL SL (06:06)
[2017-08-03 09:47] VITALS: PULSE 56
[2017-08-03 09:49] VITALS: BP 107/74; PULSE 56; RESP 16; TEMP 36.4
--- NOTE | 2017-08-03 12:33 | PCM.DC ---
- Discharge Diagnoses Current Active Problems: Current Active and Chronic Problems Polysubstance abuse (Chronic) You will use the following diet at home:: No restrictions Your food should be the consistency of: Regular Your liquids should be the consistency of: Regular/Thin Discharge Activity: Return to Normal Activity Call your doctor if you observe: Fever of 101 or Higher Allergies/Adverse Reactions: Allergies oxycodone Allergy (Unknown, Verified 07/31/17 15:00) Unknown meloxicam Allergy (Verified 06/25/17 19:17) Hives Medications to take at Discharge Naproxen 550 mg PO BID PRN PRN 03/02/17 Gabapentin [Neurontin] 600 mg PO TIDCM 07/31/17 Melatonin 5 mg PO DAILY 07/31/17 Nicotine Polacrilex [Nicotine Lozenge] 4 mg BC Q4H PRN 07/31/17 Sildenafil Citrate [Sildenafil] 2 tab PO DAILY PRN 07/31/17 Venlafaxine HCl [Effexor Xr] 75 mg PO DAILY 07/31/17 Primary Care Physician: Demetrio Martin MD [Primary Care Provider] - Please follow up with your Primary Care Physician in: as needed Proposed Discharge Date: 08/03/17
--- NOTE | 2017-08-03 12:38 | PCM.DC.SUM ---
Discharge Date and Diagnosis - Problem List Patient Problems: Active and Suspected Problems Alcohol withdrawal (Acute) Date of Admission: 07/31/17 Date of Discharge: 08/03/17 - Primary Discharge Diagnosis Active and Suspected Problems Alcohol withdrawal (Acute) opiate withdrawal - Secondary Discharge Diagnosis Chronic Problems Polysubstance abuse (Chronic) Heroin addiction (Chronic) Restless leg syndrome (Chronic) Depression (Chronic) alcohol abuse (Chronic) Tobacco abuse (Chronic) History of MRSA infection (Chronic) Multiple failed rehab attempts Hospital Course and Treatment Imaging Results: Laboratory Tests 07/31/17 07/31/17 13:55 13:55 WBC 5.6 RBC 4.74 Hgb 14.4 Hct 41.9 MCV 88.4 MCH 30.4 MCHC 34.4 RDW 15.6 H RDW Differential 50.4 H Plt Count 114 L MPV 11.8 Immature Gran % (Auto) 0.000 Neut % (Auto) 71.6 H Lymph % (Auto) 19.8 [place] % (Auto) 7.2 Eos % (Auto) 0.9 Baso % (Auto) 0.5 Absolute Neuts (auto) 4.0 Absolute Lymphs (auto) 1.10 Total Counted Not Reportable Sodium 141 Potassium 4.0 Chloride 104 Carbon Dioxide 28.0 Anion Gap 9 BUN 18 Creatinine 0.95 Estim Creat Clear Calc 87.86 Est GFR (MDRD) Af Amer 106 Est GFR (MDRD) Non-Af 88 BUN/Creatinine Ratio 19.0 Glucose 154 H Calcium 8.8 Phosphorus 3.4 Magnesium 2.0 Total Bilirubin 0.60 AST 19 ALT 25 Alkaline Phosphatase 79 Total Protein 7.4 Albumin 3.8 Globulin 3.6 Albumin/Globulin Ratio 1.1 none Operations: None Procedures: None Summary of Care Provided: The patient is a 57 year old M with a PMH of alcoholism, polysubstance abuse, CAREY, remote PUD, remote MRSA infections of the scrotum and the arm, tobacco dependence, multiple failed rehab attempts and reported RLS who presented to the [facility] office at [facility] on 07/31/17 requesting admission for medical stabilization for alcohol and opiate withdrawal. His intent is to go to an inpt treatment program at [place]. When he was in the hospital in February with [facility] his plan was to follow up with [facility] at [place] but, he failed to do this and within 1 week of [place] he was using again. He was c/o abdominal cramping, tremors and restlessness. He told me that he no longer injects heroin....he has been snorting instead. He was also using Meth and Adderall and drinking 6-12 beers a day. He was afebrile and vital signs were stable. He was not tachycardic and blood pressure was within normal limits. Pulse ox on room air was 98%. CBC was remarkable for a low platelet count of 114,000 which is likely due to the toxic effects of alcohol on bone marrow. BMP was unremarkable. Liver profile was normal. He was admitted to the [facility] for alcohol and opiate withdrawal. He denied hallucinations and also denied any hx of DT's. His 72 H supervised detox was unremarkable. He had no hallucinations and no confusion. His primary Symptom was mild tremors. He was discharged on 08/03 and was in good condition. This note was generated with [employer] dictation software. It may contain incorrect words, spelling, and punctuation that were not noted in checking the note before signing. Discharge Activity: Return to Normal Activity Call your doctor if you observe: Fever of 101 or Higher Home Medications: Medications to take at Discharge Naproxen 550 mg PO BID PRN PRN 03/02/17 Gabapentin [Neurontin] 600 mg PO TIDCM 07/31/17 Melatonin 5 mg PO DAILY 07/31/17 Nicotine Polacrilex [Nicotine Lozenge] 4 mg BC Q4H PRN 07/31/17 Sildenafil Citrate [Sildenafil] 2 tab PO DAILY PRN 07/31/17 Venlafaxine HCl [Effexor Xr] 75 mg PO DAILY 07/31/17 Primary Care Physician: Demetrio Martin MD [Primary Care Provider] - Please follow up with your Primary Care Physician in: as needed Minutes spent on discharge:: 30 Patient Condition:: Good Medical Necessity - Tobacco Use Smoking Status: Current every day smoker Tobacco Use: Cigarettes Meaningful Use Info Meaningful Use Diagnoses (Choose all that apply): None applicable Code Visit Inpatient E&M: 55553 Disch Hosp
--- NOTE | 2017-08-03 12:45 | DS.PCM_ITS ---
Discharge Date and Diagnosis - Problem List Patient Problems: Active and Suspected Problems Alcohol withdrawal (Acute) Date of Admission: 07/31/17 Date of Discharge: 08/03/17 - Primary Discharge Diagnosis Active and Suspected Problems Alcohol withdrawal (Acute) opiate withdrawal - Secondary Discharge Diagnosis Chronic Problems Polysubstance abuse (Chronic) Heroin addiction (Chronic) Restless leg syndrome (Chronic) Depression (Chronic) alcohol abuse (Chronic) Tobacco abuse (Chronic) History of MRSA infection (Chronic) Multiple failed rehab attempts Hospital Course and Treatment Imaging Results: Laboratory Tests 07/31/17 07/31/17 13:55 13:55 WBC 5.6 RBC 4.74 Hgb 14.4 Hct 41.9 MCV 88.4 MCH 30.4 MCHC 34.4 RDW 15.6 H RDW Differential 50.4 H Plt Count 114 L MPV 11.8 Immature Gran % (Auto) 0.000 Neut % (Auto) 71.6 H Lymph % (Auto) 19.8 [place] % (Auto) 7.2 Eos % (Auto) 0.9 Baso % (Auto) 0.5 Absolute Neuts (auto) 4.0 Absolute Lymphs (auto) 1.10 Total Counted Not Reportable Sodium 141 Potassium 4.0 Chloride 104 Carbon Dioxide 28.0 Anion Gap 9 BUN 18 Creatinine 0.95 Estim Creat Clear Calc 87.86 Est GFR (MDRD) Af Amer 106 Est GFR (MDRD) Non-Af 88 BUN/Creatinine Ratio 19.0 Glucose 154 H Calcium 8.8 Phosphorus 3.4 Magnesium 2.0 Total Bilirubin 0.60 AST 19 ALT 25 Alkaline Phosphatase 79 Total Protein 7.4 Albumin 3.8 Globulin 3.6 Albumin/Globulin Ratio 1.1 none Operations: None Procedures: None Summary of Care Provided: The patient is a 57 year old M with a PMH of alcoholism, polysubstance abuse, CAREY, remote PUD, remote MRSA infections of the scrotum and the arm, tobacco dependence, multiple failed rehab attempts and reported RLS who presented to the [facility] office at [facility] on 07/31/17 requesting admission for medical stabilization for alcohol and opiate withdrawal. His intent is to go to an inpt treatment program at [place]. When he was in the hospital in February with [facility] his plan was to follow up with [facility] at [place] but, he failed to do this and within 1 week of [place] he was using again. He was c/o abdominal cramping , tremors and restlessness. He told me that he no longer injects heroin....he has been snorting instead. He was also using Meth and Adderall and drinking 6- 12 beers a day. He was afebrile and vital signs were stable. He was not tachycardic and blood pressure was within normal limits. Pulse ox on room air was 98%. CBC was remarkable for a low platelet count of 114,000 which is likely due to the toxic effects of alcohol on bone marrow. BMP was unremarkable. Liver profile was normal. He was admitted to the [facility] for alcohol and opiate withdrawal. He denied hallucinations and also denied any hx of DT's. His 72 H supervised detox was unremarkable. He had no hallucinations and no confusion. His primary Symptom was mild tremors. He was discharged on 08/03 and was in good condition. This note was generated with [employer] dictation software. It may contain incorrect words, spelling, and punctuation that were not noted in checking the note before signing. Discharge Activity: Return to Normal Activity Call your doctor if you observe: Fever of 101 or Higher Home Medications: Medications to take at Discharge Naproxen 550 mg PO BID PRN PRN 03/02/17 Gabapentin [Neurontin] 600 mg PO TIDCM 07/31/17 Melatonin 5 mg PO DAILY 07/31/17 Nicotine Polacrilex [Nicotine Lozenge] 4 mg BC Q4H PRN 07/31/17 Sildenafil Citrate [Sildenafil] 2 tab PO DAILY PRN 07/31/17 Venlafaxine HCl [Effexor Xr] 75 mg PO DAILY 07/31/17 Primary Care Physician: Demetrio Martin MD [Primary Care Provider] - Please follow up with your Primary Care Physician in: as needed Minutes spent on discharge:: 30 Patient Condition:: Good Medical Necessity - Tobacco Use Smoking Status: Current every day smoker Tobacco Use: Cigarettes Meaningful Use Info Meaningful Use Diagnoses (Choose all that apply): None applicable Code Visit Inpatient E&M: 40265 Disch Hosp
[2017-08-03 12:52] VITALS: BP 112/72; PULSE 58; RESP 18; TEMP 36.8; O2SAT 98
== END 2017-08-03 13:05 | disposition designated cancer center or children's hospital (05) | DRG 435 ==
PROVIDERS: Admitting Provider Internal Medicine; Family Provider Internal Medicine; PCP Internal Medicine; Visit Provider Internal Medicine
DX: F11.23 Opioid dependence with withdrawal (principal); F10.239 Alcohol dependence with withdrawal, unspecified; F32.9 Major depressive disorder, single episode, unspecified; G25.81 Restless legs syndrome; F17.210 Nicotine dependence, cigarettes, uncomplicated; Z87.11 Personal history of peptic ulcer disease; G47.33 Obstructive sleep apnea (adult) (pediatric); Z86.14 Personal history of Methicillin resistant Staphylococcus aureus infection; Z79.899 Other long term (current) drug therapy
CPT/HCPCS: 36415; 80053; 83735; 84100; 85025; 97802; 99406

== ENCOUNTER 2017-11-29 12:58 | Emergency (ER) | payer MEDICAID, SELFPAY ==
[2017-11-29 12:58] VITALS: BP 121/72; PULSE 67; RESP 16; TEMP 36.4; O2SAT 98; BMI 30.3
--- NOTE | 2017-11-29 13:15 | ED.VISSUMM ---
- ER Visit Summary Date of Service: 11/29/17 Chief Complaint: [redness R elbow] History of Present Illness: The patient is a 57 M [that presents with an area of redness on his right elbow for about 1 week. Patient was concerned because he had prior MRSA. The area is consistent with a 1 cm in total area small erythematous region with a central region that appears scabbed over from where the patient states he pushed on it to try to let it drain. There is no fluctuance. No other surrounding erythema or streaking. Patient has no fever or other symptoms. He appears well and nontoxic. He has no other complaints.] Physical Examination: [General: The patient appears well and in no apparent distress. Patient is resting comfortably on cart. Skin: Warm, dry, no pallor noted. No rash. 1 cm nonfluctuant area of erythema right dorsal elbow. Head: Normocephalic, atraumatic Neck: Supple, nontender. ENT: Moist mucus membranes, pharynx within normal limits. Cardiovascular: Regular Rate and Rhythm, no gallups or rubs Respiratory: Patient is in no distress, no accessory muscle use, lungs are clear to auscultation, no wheezing, rales or rhonchi Musculoskeletal: normal ROM, no deformity, no tenderness, no swelling. 2+ radial and DP pulses symmetric. GI: No tenderness to palpation, no masses appreciated. No rebound, guarding, or rigidity noted. Neurological: A&O, normal strength and sensation. Psychiatric: Cooperative] Test Results: [none] Emergency Department Course and Treatment: [Patient was started on a course of Bactrim and I instructed him to follow closely with his primary provider in 1-2 days for wound check. There is no area amenable for incision or drainage. He was instructed to return to the emergency department with any new or worsening symptoms. Patient understands and is agreeable with this plan of care. Patient was discharged home in stable condition.] Treatment Plan: [see above] Disposition: [discharge home] Impression: [Cellulitis R elbow] This note was generated with [employer] dictation software. It may contain incorrect words, spelling, and punctuation that were not noted in review of the chart prior to signing ED Disposition - Plan for ED Patient: Chief Complaint: Wound Instructions: Cellulitis - Causes,Symptoms,Treating Prescriptions: Smz/Tmp Ds [Bactrim Ds] 1 tab PO BID #13 tab Referrals: Demetrio Martin MD [Primary Care Provider] -
[2017-11-29] MEDS: Smz/Tmp Ds Tablet 1 TABLET PO (13:32)
[2017-11-29 13:33] VITALS: RESP 16
== END 2017-11-29 13:45 | disposition home or self-care (01) ==
LOC: ED 13:27
PROVIDERS: Emergency Provider Emergency Medicine; Family Provider Internal Medicine; PCP Internal Medicine
DX: L03.113 Cellulitis of right upper limb (principal); Z86.14 Personal history of Methicillin resistant Staphylococcus aureus infection; M19.90 Unspecified osteoarthritis, unspecified site; Z79.899 Other long term (current) drug therapy; Z72.0 Tobacco use
CPT/HCPCS: 99283

== ENCOUNTER 2018-12-31 13:40 | Emergency (ER) | payer MEDICAID, SELFPAY ==
[2018-12-31 13:41] VITALS: BP 132/80; PULSE 75; RESP 16; TEMP 36.6; O2SAT 97; BMI 24.3
--- NOTE | 2018-12-31 14:25 | RAD_ITS ---
STUDY: X-RAY - PELVIS AND RIGHT HIP REASON FOR EXAM: Male, 58 years old. Right hip pain. TECHNIQUE: 3 views of the pelvis and hip. COMPARISON: None. FINDINGS: There is a non-specific bowel gas pattern. Normal visualized soft tissue structures. Normal bilateral iliac wings, sacroiliac joints and visualized sacrum. Normal bilateral superior and inferior pubic rami. Normal pubic symphysis. Normal bilateral ischial tuberosities. There is widening of the right femoral necks. This is in keeping with the right femoral acetabular impingement. Normal acetabulum. is severe articular joint space narrowing of the hip. RAD/HIP, UNI W/ Pelvis 2-3 Views IMPRESSION: Findings in keeping with the right-sided femoral acetabular impingement. Marked degree of osteoarthritis of the right hip joint. Electronically Signed: Charan Urrutia, at 15:07 EDT , Service support ,
[2018-12-31] MEDS: Naproxen 500 MG Tablet PO (15:02)
--- NOTE | 2018-12-31 15:42 | ED.VIS.GEN ---
History of Present Illness Chief Complaint: Lower Extremity Injury Narrative: Patient presenting for evaluation secondary to right hip pain. Patient reports that he has been dealing with right hip pain for quite some time, and underwent work-up by a orthopedist and was told that potentially he will need a right hip replacement at some point. Patient states that he was walking today and he felt a sudden severe pop in his right hip that hurts so bad that he felt nauseous and almost vomited. Patient states that the pain is calm down at this point, but is still moderate worse with any sort of movement. Patient denies any fevers chills unintended weight loss he does have a prior history of opiate abuse. Review of systems otherwise negative. Past Medical History - Allergies and Home Meds Allergies/Adverse Reactions: Allergies oxycodone Allergy (Unknown, Verified 12/31/18 13:40) Unknown meloxicam Allergy (Verified 12/31/18 13:40) Hives Primary Care Physician: Demetrio Martin MD [Primary Care Provider] - Past Medical History: - - Prior history of polysubstance abuse Surgical History: - Smoking Status: Current every day smoker - Family History Maternal Family History: Reports: Cancer Paternal Family History: Reports: No pertinent history Review of Systems General: Denies: Chills, Fever, Weight loss Musculoskeletal: Reports: Arthralgias Physical Exam Vital Signs/Narrative: Vital Signs Temp Pulse Resp BP Pulse Ox 12/31/18 13:41 97.9 F 75 16 132/80 H 97 Inital Vital Signs reviewed: Yes General: Well nourished, Well developed, Unkempt, No Acute Distress Head: Normocephalic, Atraumatic Eyes: Perrl, EOMI ENT: Moist mucous membranes, No rhinorrhea Neck: Supple, Nontender Cardiovascular: Regular rate, Regular rhythm, No murmurs Respiratory: No distress, CTA bilaterally, Chest nontender Abdomen: Soft, Nontender, Nondistended, Normal bowel sounds Back: Nontender, Normal Inspection Extremities: No edema, - - Examination the patient's lower extremities show some pain with logroll, internal, external rotation of the right hip as well as flexion and extension. No warmth or erythema. Normal distal sensation normal distal pulses. Skin: Normal color, No rash Neurological: Alert, Oriented x3, Cranial nerves II-XII grossly intact, Normal Strength, Normal Sensation Psychological: Normal affect, Normal Mood Diagnostic/Tx/Re-eval Chest X-Ray - ED: - - 2 views of the right hip with a pelvis by my personal review as well as radiology show right arthritis of the right hip joint with iliofemoral impingement syndrome - Medical Decision Making Patient presented secondary to hip pain. X-ray demonstrates arthritis. Patient was given Naprosyn for treatment of pain. Patient reports that he has seen Dr. Gonzalez for this in the past, I did recommend that he follow-up as he potentially may be to the point where he requires a hip replacement. Patient will be discharged with a course of Naprosyn. ED Disposition - Plan for ED Patient: Disposition: Home or Assisted Living Diagnosis: Arthritis of right hip Instructions: Hip Arthroscopy: Repairing Femoroacetabular Impingement, After Hip Replacement: Returning to Activity Prescriptions: Naproxen [Naprosyn] 500 mg PO BID PRN #20 tab Prescription Printed Additional Instructions: Followup with Dr Gonzalez
== END 2018-12-31 15:51 | disposition home or self-care (01) ==
PROVIDERS: Emergency Provider Emergency Medicine; Family Provider Internal Medicine; PCP Internal Medicine
DX: M16.11 Unilateral primary osteoarthritis, right hip (principal); F17.200 Nicotine dependence, unspecified, uncomplicated
CPT/HCPCS: 73502; 99283

== ENCOUNTER 2019-01-04 13:23 | Emergency (ER) | payer MEDICAID, SELFPAY ==
[2019-01-04 13:23] VITALS: BP 127/77; PULSE 74; RESP 15; TEMP 36.1; O2SAT 100; BMI 26.6
--- NOTE | 2019-01-04 13:54 | ED.VISSUMM ---
- ER Visit Summary Date of Service: 01/04/19 Chief Complaint: Acute on chronic right hip pain Requesting pain medication History of Present Illness: The patient is a 58 M history of osteoarthritis and degenerative hip disease of the right hip. Patient has chronic pain. Seen in the emergency department within the last week. Was written for Naprosyn. He states it is not controlling his pain. Is looking for something stronger for pain. States that he is going to be placed on Suboxone but he needs to stop drinking first for that to happen. Physical Examination: Middle-aged male no acute distress vital signs are stable afebrile. HEENT exam unremarkable. Neck nontender. Lungs clear to auscultation bilaterally. Heart regular rhythm no murmur. Abdomen soft nontender normal bowel sounds no peritoneal signs. Remedies moves all 4. Neurovascular intact. His right hip he has full range of motion of the right hip. There is no shortening or rotation. Both feet are neurovascular intact. There is no edema. Neurologic exam awake alert with no focal motor deficits. Test Results: None Emergency Department Course and Treatment: I explained to patient I am not writing any narcotic pain meds. He has a history of alcohol abuse he drinks at least 2 tall boy cans of alcohol a day. If he stops drinking for another week he said he can get himself on Suboxone throughout clinic. Treatment Plan: Naprosyn for pain which is a prescription for. Follow-up. Orthopedic referral. Disposition: Discharge Impression: Chronic right hip pain secondary to arthritis and degenerative joint disease This note was generated with [employer] dictation software. It may contain incorrect words, spelling, and punctuation that were not noted in review of the chart prior to signing ED Disposition - Plan for ED Patient: Referrals: Demetrio Martin MD [Primary Care Provider] -
--- NOTE | 2019-01-04 13:57 | ED.DEP ---
ED Disposition - Plan for ED Patient: Disposition: Home or Assisted Living Instructions: ED Chronic Pain Referrals: Demetrio Martin MD [Primary Care Provider] - As Needed Behzad Garcia DO [STAFF PHYSICIAN] - 1-2 Weeks Aniceto Colvin MD [STAFF PHYSICIAN] - 1-2 Weeks Additional Instructions: Follow-up with orthopedics either Dr. Tarun Colvin or Dr. Behzad Garcia for evaluation for possible right hip replacement. Follow-up with the clinic for further pain management.
== END 2019-01-04 14:09 | disposition home or self-care (01) ==
LOC: ED 14:08
PROVIDERS: Emergency Provider Emergency Medicine; Family Provider Internal Medicine; PCP Internal Medicine
DX: M16.11 Unilateral primary osteoarthritis, right hip (principal); G89.29 Other chronic pain; F10.10 Alcohol abuse, uncomplicated; Y90.9 Presence of alcohol in blood, level not specified; Z72.0 Tobacco use
CPT/HCPCS: 99282

== ENCOUNTER 2019-02-27 18:19 | Emergency (ER) | payer MEDICAID, SELFPAY ==
[2019-02-27 18:20] VITALS: BP 130/90; PULSE 83; RESP 16; TEMP 37; BMI 26.6
--- NOTE | 2019-02-27 18:44 | ED.VISSUMM ---
- ER Visit Summary Date of Service: 02/27/19 Chief Complaint: [Cough and sinus congestion and headache] History of Present Illness: The patient is a 59 M [presents to the emergency department with multiple complaints today. Patient states he has had a cough and a lot of sinus congestion and pressure for about 2 weeks. Patient coughing up some green phlegm as well some brown phlegm. Today started with a headache and has had some nausea. Patient does have history of COPD. Patient denies any fevers. He denies any shortness of breath. Denies any falls or head injuries. He is not on any blood thinners. Patient states that his nausea is mostly resolved and his headache is mild right side about a 5 or 6 out of 10.] Physical Examination: [HEENT-PERRLA, EOMI. Cranial nerves II through XII grossly intact. TMs clear. Mucous membranes moist. No adenopathy. Cardiovascular-regular rate and rhythm without murmur or ectopy Lungs-clear to auscultation, chest wall stable without crepitus or subcu emphysema Abdomen-normoactive bowel sounds, soft, nontender, no rebound or rigidity, no peritoneal signs. Neuro [id number] and heel velasco testing within normal limits, negative Romberg, negative for drift, fundi benign Extremities-intact ?4, normal range of motion, normal pulses, atraumatic] Test Results: [None indicated] Emergency Department Course and Treatment: [Patient will be started on amoxicillin and advised to follow-up with primary care physician within next 3 to 5 days.] Treatment Plan: [Amoxicillin and follow-up with primary care physician] Disposition: [Discharged home in stable condition] Impression: [URI Sinusitis] This note was generated with [employer] dictation software. It may contain incorrect words, spelling, and punctuation that were not noted in review of the chart prior to signing ED Disposition - Plan for ED Patient: Referrals: Demetrio Martin MD [Primary Care Provider] -
--- NOTE | 2019-02-27 18:45 | ED.DEP ---
ED Disposition - Plan for ED Patient: Instructions: Sinus Headache, BRONCHITIS, Antiobiotic Treatment (Adult) Prescriptions: Amoxicillin 500 mg PO TID #30 tab Prescription Printed Referrals: Demetrio Martin MD [Primary Care Provider] - 3-5 Days
[2019-02-27] MEDS: Acetaminophen 325 MG Tablet 650 MG PO (18:52)
[2019-02-27] MEDS: AMOXICILLIN 500 MG CAPSULE PO (18:52)
[2019-02-27 18:55] VITALS: RESP 18
== END 2019-02-27 18:57 | disposition home or self-care (01) ==
LOC: ED 18:47
PROVIDERS: Emergency Provider Emergency Medicine; Family Provider Internal Medicine; PCP Internal Medicine
DX: J06.9 Acute upper respiratory infection, unspecified (principal); J32.9 Chronic sinusitis, unspecified; J44.9 Chronic obstructive pulmonary disease, unspecified; Z86.14 Personal history of Methicillin resistant Staphylococcus aureus infection; Z72.0 Tobacco use
CPT/HCPCS: 99284

== ENCOUNTER 2019-12-17 11:41 | Inpatient (IN) | payer MEDICAID, SELFPAY ==
[2019-12-17 11:43] VITALS: BP 122/88; PULSE 76; RESP 16; TEMP 35.8; O2SAT 98; BMI 25.8
--- NOTE | 2019-12-17 11:57 | ED.VISSUMM ---
- ER Visit Summary Date of Service: 12/17/19 Chief Complaint: Substance abuse History of Present Illness: The patient is a [address] Martin. He reports that he uses fentanyl. He either snorts or injects this. States he has not injected in quite some time. His last use of this was 2 days ago. He also drinks daily. He reports that he drinks approximately 12 8% beers per day. He has had 48 ounces of that so far today. He also reports that he uses methamphetamine. He smokes, snorts, or injects this. His last use of this was yesterday. Patient reports that he was admitted here 2 years ago for this and then went to [facility]. He was clean for approximately 6 months. On review of systems patient complains of chills and sweats. States he has a headache that 7 out of 10 severity. Frontal in location. Is a dull, throbbing pain. Does have a history of similar headaches. Physical Examination: Vitals: Stable. Afebrile. General: Well-nourished and well-developed. Head: Normocephalic atraumatic. Neck: Supple, no lymphadenopathy. No JVD. Nontender. Cardiovascular: Regular rate and rhythm. No murmurs. Respiratory: No respiratory distress. Clear to auscultation bilaterally. Abdominal: Soft, nontender, nondistended, normal bowel sounds. No guarding, rebound, or peritoneal signs. Back: Nontender. Extremities: Nontender, no edema. No track walker. Skin: Normal color, no rash. Neurologic: Alert and oriented ?3. Cranial nerves II through XII are intact. Normal strength and sensation. Psych: Depressed. Test Results: Pending Emergency Department Course and Treatment: Patient had an IV placed. He is resting comfortably. Treatment Plan: Patient will be discussed the hospitalist admitted for further evaluation and treatment. Disposition: Admitted in stable condition. Impression: 1. Opiate/alcohol/methamphetamine abuse. This note was generated with [employer] dictation software. It may contain incorrect words, spelling, and punctuation that were not noted in review of the chart prior to signing ED Disposition - Plan for ED Patient: Referrals: Demetrio Martin MD [Primary Care Provider] -
--- NOTE | 2019-12-17 12:06 | HP.PCM_ITS ---
History of Present Illness Date of Admission: 12/17/19 Chief Complaint: opiate withdrawal The patient is a 59 year old M with a past medical history of polysubstance abuse. He uses alcohol, opiates, mainly fentanyl and methamphetamine. He has been through detox before some years ago but said it lasted only about 6 months. Patient was admitted through the ED on 12/17/2019 opioid withdrawal. Patient states he uses fentanyl which he either injects or snorts. He last snorted about 0.5 g of fentanyl 2 days ago because he did not have any needle to inject himself with. He admits to sharing needles with other people just about a couple of months ago. He also drinks about 12 cans of beer daily and his last drink was today. He also uses methamphetamines periodically. He denied any headache, chest pain, blurred vision, palpitations, dizziness, tremors, abdominal pain, diarrhea vomiting. Review of signs otherwise negative. In the ED, vitals show temperature of 96.5 Fahrenheit with blood pressure of 122/88 and pulse rate of 76 with respiratory of 16. He was saturating at 98% on room air. CBC and CMP were essentially unremarkable and urine tox was positive for methamphetamines with serum alcohol level of 48. He has been admitted to be managed for acute opioid withdrawal and acute alcohol withdrawal. Of note, patient also stated that he had been exposed to a friend who was intending for COVID. He would not say whether the friend had been diagnosed with COVID O notes. [] Past Medical History Past Medical History (Chronic Problems): Chronic Problems Polysubstance abuse (Chronic) Heroin addiction (Chronic) Restless leg syndrome (Chronic) Depression (Chronic) History of alcohol abuse (Chronic) Tobacco abuse (Chronic) History of MRSA infection (Chronic) Allergies oxycodone Allergy (Unknown, Verified 12/17/19 11:43) Unknown meloxicam Allergy (Verified 12/17/19 11:43) Hives Home Medications: Ambulatory Orders Medication Instructions Recorded Gabapentin [Neurontin] 800 mg PO TIDCM 07/31/17 Venlafaxine HCl [Effexor Xr] 75 mg PO DAILY 07/31/17 Nicotine Polacrilex [Nicotine 4 mg BC Q2H PRN PRN 02/27/19 Lozenge] Tamsulosin HCl [Flomax] 0.8 mg PO QHS 02/27/19 Naproxen [Naprosyn] 500 mg PO BID PRN PRN 12/17/19 Nicotine Polacrilex [Nicotine Gum] 4 mg BC Q2H PRN PRN 12/17/19 Surgical History: no surgical history, - Psychiatric History: No pertinent psych hx, Depression Lives: Homeless Smoking Status: Light Smoker (<10/day) Tobacco Use: Cigarettes Alcohol: Heavy Drugs: Heroin - fentanyl, methamphetamines - *Family History Maternal History Items: Cancer Paternal History Items: No pertinent history Review of Systems Constitutional: Denies: Chills, Fever, Malaise, Weakness, Weight Change Eyes: Denies: Blurred vision HEENT: Denies: Head Aches, Sinus Congestion, Sinus Drainage Cardiovascular: Denies: Chest Pain, Palpitations Respiratory: Denies: Cough, Shortness of Breath, Shortness of breath at rest, Shortness of breath upon exertion, Sputum production Gastrointestinal: Denies: Abdominal Pain, Nausea, Vomiting Genitourinary: Denies: Dysuria Musculoskeletal: Denies: Joint Pain, Joint Tenderness Skin: Denies: Rash, Wounds Neurological: Denies: Numbness, Tingling, Focal weakness Psychiatric: Denies: Anxiety, Depression, Homicidal Ideations, Suicidal Ideations Hematologic/ Lymphatic: Denies: Easy Bruising, Easy Bleeding VTE Information - Inpt Only VTE Present on Admission: No VTE Pharm Prophylaxis ordered?: No - Physical Exam Vitals/I&O's: Vital Signs Temp Pulse Resp BP Pulse Ox 96.5 F L 76 16 122/88 H 98 12/17/19 11:43 12/17/19 11:43 12/17/19 11:43 12/17/19 11:43 12/17/19 11:43 Oxygen Delivery Method Room Air Weight: 175 lb Body Mass Index (BMI) 25.8 General: Alert, Oriented x3, Cooperative, No apparent distress HEENT: Atraumatic, PERRLA, EOMI, Normocephalic Oral: Dry Mucosa Neck: Supple, No JVD, Negative Carotid Bruits Lungs: Clear to auscultation, Normal air movement, No rhonchi, No wheeze, No rales Cardiovascular: Regular rate, Regular Rhythm, Normal S1, Normal S2, No murmurs Abdomen: Bowel Sounds Present, Soft, Non Tender, Non-Distended, No Hepato- splenomegaly Extremities: No clubbing, No cyanosis, No edema, Capillary Refill Less than 3 Seconds Skin: No rashes, No breakdown Musculoskeletal: No Tenderness to Palpation of Joints or Extremities Lymphatic: No Cervical, Supraclavicular, or Inguinal Adenopathy Neurological: Cranial nerves II-XII grossly intact, Neuro grossly intact, Motor Exam 5/5 strength throughout Psych/Mental Status: Normal Affect, Appropriate, Alert and oriented to time, place, person, mood and affect Assessment/Plan All Active Problems Alcohol withdrawal (Acute) Opiate withdrawal (Acute) 59 y/o admitted for acute opioid withdrawal # Acute opioid withdrawal * admit to med surg * start on buprenorphine withdrawal protocol * monitor CINA score * #Acute alcohol withdrawal * drinks ~ 12 beers daily. * Last drink was today before coming in. * Start on alcohol withdrawal protocol with phenobarbital * monitor CIWA score. * thiamine, folic acid and multivitamin * #History of polysubstance abuse: * Uses fentanyl, alcohol and methamphetamines also. * Opioid withdrawal and alcohol withdrawal protocol as above. Counseled to quit methamphetamines. * * #Probable COVID exposure * Patient states he has a friend who self containing focal with exposure. He cannot say whether friend has COVID or was exposed to COVID. * Will check patient for COVID. * #Nicotine dependence: nicotine patch 21mg daily DVT prophylaxis: low risk, encourage to ambulate Inpatient E&M: 13837 Init Hosp L3
--- NOTE | 2019-12-17 12:07 | NURSING ---
MED SURG OPIATE/ALCOHOL ABUSE KORAM
--- NOTE | 2019-12-17 12:38 | CM.ED ---
Social Work Consult: Substance Abuse Informant: Dr. Roblero Met with patient in room. Introduced self and social science research assistant role. Patient agreeable to speaking to this social science research assistant. Patient reports to currently be seeking medical management of withdrawal symptoms. Patient reports to use anything I can get my hands on. Patient states to primarily use alcohol and meth but to use heroine or opioids if unable to obtain meth or alcohol. Patient reports to have been sober for 6 months 2 years ago but to have not been sober for the past 2 years. Patient states main motivation as run down, I can't do this anymore. Patient currently lives at [facility] and is aware of [facility] partnership with [facility] for substance abuse treatment. Patient verbally agreeing to [facility] contract. Patient admits to history of Depression. Patient denies any suicidal thoughts/plans/intents. [facility] updated on patient [facility]. Haley ONEILL, ENMANUEL-S
[2019-12-17 12:41] VITALS: BP 131/81; PULSE 78; RESP 16; TEMP 36.6; O2SAT 98
[2019-12-17 12:50] LABS: Absolute Lymphocyte Count 1.27 X10^3/uL (0.83-4.51); Absolute Neutrophil Count 3.5 X10^3/uL (2.0-7.7); Basophil# 0.02 X10^3/uL; Basophil% 0.4 % (0-1); Eosinophil# 0.11 X10^3/uL; Eosinophils% 2.1 % (0-5); Hematocrit 45.8 % (40-54); Hemoglobin 14.9 g/dL (13.0-16.5); Lymphocyte # 1.27 X10^3/ul (4.0); Lymphocyte % 23.8 % (19-41); Mean Corp Hgb Conc 32.5 g/dL (32-36); Mean Corpuscular Hgb 28.5 pg (27.0-32.0); Mean Corpuscular Volume 87.6 fL (80-94); Mean Platelet Vol. 11.3 fl (6.2-12.0); Monocyte# 0.39 X10^3/uL; Monocyte% 7.3 % (0-10); NRBC Flagged by Analyzer 0 % (0-5); Neutrophil # 3.53 X10^3/uL (2.7-7.7); Neutrophil % 66.2 % (47-70); Platelet Count 143 K/mm3 (150-450); RBC Distribution Width CV 14.8 % (11.6-14.6); RBC Distribution Width SD 47.8 fl (35.1-43.9); Red Blood Count 5.23 M/mm3 (4.6-6.2); White Blood Count 5.3 K/mm3 (4.4-11.0)
[2019-12-17 12:56] LABS: Amphetamine Urine VISTA POSITIVE (<1000 ng/mL); Barbiturate Urine VISTA NEGATIVE (< 200 ng/mL); Benzodiazepine Urine VISTA NEGATIVE (< 200 ng/mL); Cocaine Urine VISTA NEGATIVE (< 300 ng/mL); Ecstacy Urine VISTA NEGATIVE (< 500 ng/mL); Methadone Urine VISTA NEGATIVE (< 300 ng/mL); PCP Urine VISTA NEGATIVE (< 25 ng/mL); THC Urine VISTA NEGATIVE (< 50 ng/mL); Vista UDS pH Range 5
[2019-12-17 13:00] VITALS: BMI 25.9; BMI 26.0
[2019-12-17 13:02] LABS: ALB/GLOB Ratio 1.1 RATIO (0.9-2.4); AST(SGOT) 25 U/L (15-37); Alanine Aminotransfer ALT/SGPT 27 U/L (16-61); Alkaline Phosphatase 90 U/L (45-117); Anion Gap 5 (5-15); BUN 15 mg/dL (7-18); BUN/Creat Ratio 16.2 RATIO (10-20); Calcium,Total 8.5 mg/dL (8.5-10.1); Chloride 107 mmol/L (98-107); Creatinine, Serum 0.93 mg/dL (0.70-1.30); EST Glomerular Filtration Rate 89 mL/min (>60); Est Glom Filt Rate - Afr Amer 108 mL/min (>60); Estimated Creatinine Clearance 87.64 ml/min; Globulin 3.8 g/dL (2.2-4.2); Glucose 81 mg/dL (74-106); Potassium 4.2 mmol/L (3.5-5.1); Protein, Total 7.8 g/dL (6.4-8.2); Sodium Level 137 mmol/L (136-145)
[2019-12-17 13:06] VITALS: BP 109/74; PULSE 62; RESP 18; TEMP 36.6; O2SAT 97
--- NOTE | 2019-12-17 15:01 | PCA ---
pt has a suitcase that was too large for our [employer] bins, so it is not locked up in pt room. Security has patients suitcase, when patient is discharged please call security to obtain suitcase.
[2019-12-17 16:28] VITALS: BP 101/64; PULSE 63; RESP 18; TEMP 36.6; O2SAT 96
[2019-12-17] MEDS: Dicyclomine 10 MG Capsule 20 MG PO (16:30)
[2019-12-17] MEDS: Buprenorphine HCl 2 MG TAB.SUBL SL ×2 (16:30→23:12)
[2019-12-17] MEDS: Gabapentin 800 MG Tablet PO (16:30)
[2019-12-17] MEDS: Phenobarbital 32.4 MG Tablet PO ×2 (16:30→20:20)
[2019-12-17] MEDS: Ondansetron 8 MG Tablet PO (16:30)
[2019-12-17] MEDS: hydrOXYzine PAM 25 MG Capsule 50 MG PO (16:31)
[2019-12-17] MEDS: Tamsulosin HCl 0.4 MG Capsule 0.8 MG PO (18:35)
[2019-12-17] MEDS: Methocarbamol 750 MG Tablet 1500 MG PO (18:35)
[2019-12-17 20:25] VITALS: BP 119/78; PULSE 68; RESP 18; TEMP 36.4; O2SAT 95
[2019-12-18] MEDS: Phenobarbital 32.4 MG Tablet PO ×6 (00:17→20:04)
[2019-12-18] MEDS: 0.9% Saline Lock 10 ML Syringe IV (00:22)
[2019-12-18 00:24] VITALS: BP 114/49; PULSE 64; RESP 18; TEMP 36.6; O2SAT 95
[2019-12-18 04:51] VITALS: BP 115/99; PULSE 65; RESP 18; TEMP 36.5; O2SAT 95
[2019-12-18] MEDS: Buprenorphine HCl 2 MG TAB.SUBL SL ×3 (06:15→23:00)
--- NOTE | 2019-12-18 07:32 | PN_ITS ---
Subjective: Patient seen and examined. He has no complaints. He had an uneventful night. Review of systems otherwise negative. CIWA score today is 2. Vitals/I&O's: Vital Signs Temp Pulse Resp BP Pulse Ox 97.7 F L 65 18 115/99 H 95 12/18/19 04:51 12/18/19 04:51 12/18/19 04:51 12/18/19 04:51 12/18/19 04:51 Oxygen Delivery Method Room Air Weight: 175 lb 12.8 oz Body Mass Index (BMI) 25.9 Intake and Output for Last 24 Hours 12/16/19 12/17/19 12/18/19 23:59 23:59 23:59 Intake Total 800 / 800 300 / 300 Balance 800 / 800 300 / 300 General: Alert, Oriented x3, Cooperative, No apparent distress HEENT: Atraumatic, PERRLA, EOMI, Normocephalic Oral: Dry Mucosa Neck: Supple, No JVD, Negative Carotid Bruits Lungs: Clear to auscultation, Normal air movement, No rhonchi, No wheeze, No rales Cardiovascular: Regular rate, Regular Rhythm, Normal S1, Normal S2, No murmurs Abdomen: Bowel Sounds Present, Soft, Non Tender, Non-Distended, No Hepato- splenomegaly Extremities: No clubbing, No cyanosis, No edema, Capillary Refill Less than 3 Seconds Skin: No rashes, No breakdown Musculoskeletal: No Tenderness to Palpation of Joints or Extremities Lymphatic: No Cervical, Supraclavicular, or Inguinal Adenopathy Neurological: Cranial nerves II-XII grossly intact, Neuro grossly intact, Motor Exam 5/5 strength throughout Psych/Mental Status: Normal Affect, Appropriate, Alert and oriented to time, place, person, mood and affect Laboratory Results 12/17/19 12:35: WBC 5.3, RBC 5.23, Hgb 14.9, Hct 45.8, MCV 87.6, MCH 28.5, MCHC 32.5, RDW Std Deviation 47.8 H, RDW Coeff of Brad 14.8 H, Plt Count 143 L, MPV 11.3, Immature Gran % (Auto) 0.200, Neut % (Auto) 66.2, Lymph % (Auto) 23.8, Newton % (Auto) 7.3, Eos % (Auto) 2.1, Baso % (Auto) 0.4, Absolute Neuts (auto) 3.5, Absolute Lymphs (auto) 1.27, Nucleated RBC % 0 12/17/19 12:35: Sodium 137, Potassium 4.2, Chloride 107, Carbon Dioxide 25.0, Anion Gap 5, BUN 15, Creatinine 0.93, Estim Creat Clear Calc 87.64, Est GFR (MDRD) Af Amer 108, Est GFR (MDRD) Non-Af 89, BUN/Creatinine Ratio 16.2, Glucose 81, Calcium 8.5, Total Bilirubin 0.50, AST 25, ALT 27, Alkaline Phosphatase 90, Total Protein 7.8, Albumin 4.0, Globulin 3.8, Albumin/Globulin Ratio 1.1 12/17/19 12:35: Ethyl Alcohol 48.0 12/17/19 12:35: Urine Opiates Screen NEGATIVE, Urine Methadone Screen NEGATIVE, Ur Barbiturates Screen NEGATIVE, Ur Phencyclidine Scrn NEGATIVE, Ur Amphetamines Screen POSITIVE H, U Methamphetamin-MDMA NEGATIVE, U Benzodiazepines Scrn NEGATIVE, Urine Cocaine Screen NEGATIVE, U Cannabinoids Screen NEGATIVE, Ur Drug Screen Comment 12/17/19 15:38: COVID-19 (CORBIN) Not Detected Current Medications Buprenorphine HCl (Buprenorphine Hcl) 4 mg SL Q8H SANDI; Taper Stop: 12/20/19 14:29 Last Admin: 12/18/19 06:15 Dose: 4 mg Documented by: Clonidine (Catapres) 0.1 mg PO Q8H PRN PRN PRN Reason: RESTLESSNESS Dicyclomine HCl (Bentyl) 20 mg PO Q6H PRN PRN PRN Reason: Abdominal Discomfort Last Admin: 12/17/19 16:30 Dose: 20 mg Documented by: Folic Acid (Folic Acid) 1 mg PO DAILY@0800 SANDI Gabapentin (Neurontin) 800 mg PO TIDCM SANDI Last Admin: 12/17/19 16:30 Dose: 800 mg Documented by: Hydroxyzine Pamoate (Vistaril Pamoate Capsule) 50 mg PO Q6H PRN PRN PRN Reason: mild anxiety Last Admin: 12/17/19 16:31 Dose: 50 mg Documented by: Influenza Virus Vaccine Quadrival (Flucelvax /Fluzone ) 0.5 ml IM .ONCE ONE Stop: 12/18/19 10:01 Loperamide HCl (Imodium) 2 mg PO Q4H PRN PRN PRN Reason: LOOSE STOOLS Methocarbamol (Methocarbamol) 1,500 mg PO Q6H PRN PRN PRN Reason: MUSCLE SPASM Last Admin: 12/17/19 18:35 Dose: 1,500 mg Documented by: Naproxen (Naprosyn) 500 mg PO BID PRN PRN PRN Reason: Pain 1-10 or Fever Nicotine (Nicoderm Cq ([facility] [employer] [facility])) 21 mg TRANSDERM. DAILY [facility] Last Admin: 12/17/19 18:34 Dose: 21 mg Documented by: Nicotine Polacrilex (Rugby Nicotine ([facility] [employer])) 4 mg BC Q2H PRN PRN PRN Reason: smoking censation Last Admin: 12/18/19 04:54 Dose: 4 mg Documented by: Ondansetron HCl (Zofran) 8 mg PO Q8H PRN PRN PRN Reason: NAUSEA Last Admin: 12/17/19 16:30 Dose: 8 mg Documented by: Ondansetron HCl (Zofran) 4 mg IV Q8H PRN PRN PRN Reason: NAUSEA/VOMITING Phenobarbital (Phenobarbital) 97.2 mg PO Q4H [facility]; Taper Stop: 12/22/19 00:14 Last Admin: 12/18/19 04:46 Dose: 97.2 mg Documented by: Sodium Chloride () 10 - 40 ml IV UD PRN PRN Reason: SALINE FLUSH Last Admin: 12/18/19 00:22 Dose: 10 ml Documented by: Tamsulosin HCl (Flomax) 0.8 mg PO DAILY@1730 [facility] Last Admin: 12/17/19 18:35 Dose: 0.8 mg Documented by: Thiamine HCl ([facility]itamin B1) [facility] Trazodone HCl (Desyrel) 100 mg PO QHS PRN PRN PRN Reason: INSOMNIA Venlafaxine HCl (Effexor Xr) 75 mg PO DAILY [facility] STROKE Vital Signs/Narrative: Vital Signs Temp Pulse Resp BP Pulse Ox 12/18/19 04:51 97.7 F L 65 18 115/99 H 95 Medical Necessity - Tobacco Use Smoking Status: Heavy Smoker (>10/day) Tobacco Use: Cigarettes Assessment/Plan All Active Problems Alcohol withdrawal (Acute) Opiate withdrawal (Acute) 59 y/o admitted for acute opioid withdrawal # Acute opioid withdrawal * on buprenorphine withdrawal protocol * stable * * #Acute alcohol withdrawal * on alcohol withdrawal protocol with phenobarbital * CIWA score is 2 * thiamine, folic acid and multivitamin * #History of polysubstance abuse: * Uses fentanyl, alcohol and methamphetamines also. * Opioid withdrawal and alcohol withdrawal protocol as above. Counseled to quit methamphetamines. * * #Probable COVID exposure * Patient states he has a friend who self containing focal with exposure. He cannot say whether friend has COVID or was exposed to COVID. * COVID test done here was negative. * #Nicotine dependence: nicotine patch 21mg daily DVT prophylaxis: low risk, encourage to ambulate Inpatient E&M: 45004 Subs Hosp L2
[2019-12-18 08:18] VITALS: BP 99/64; PULSE 64; RESP 18; TEMP 36.3; O2SAT 94
[2019-12-18] MEDS: Venlafaxine XR 75 MG Capsule PO (08:33)
[2019-12-18] MEDS: hydrOXYzine PAM 25 MG Capsule 50 MG PO (08:33)
[2019-12-18] MEDS: Methocarbamol 750 MG Tablet 1500 MG PO (08:33)
[2019-12-18] MEDS: Thiamine Hydrochloride 100 MG Tablet PO (08:33)
[2019-12-18] MEDS: Folic Acid 1 MG Tablet PO (08:34)
[2019-12-18] MEDS: Gabapentin 800 MG Tablet PO ×3 (08:34→18:00)
--- NOTE | 2019-12-18 09:36 | ADDICTION ---
This grant writer met with patient to complete ASAM, MSE, AUDIT and DUDIT assessments and to plan for discharge. Assessments completed and will be faxed to [facility]. Patient was appropriate and cooperative throughout meeting and requested to directly admit into [facility] upon d/c from [facility]. This grant writer will follow up with [facility] staff regarding patient remaining at [facility] until Sunday when he can directly admit into treatment with [facility]. Patient amiable. [facility] will transport patient on Sunday if he is able to stay at [facility] until Sunday.
--- NOTE | 2019-12-18 10:40 | CASEMGMT ---
Social Work Note SW received call from Stephanie at [facility] stating pt is able to direct admit to [facility] on Sunday12/22/2019 with [facility] transporting pt at 9:15am. Chyna Santiago WORK FORCE ADVISOR, OLERICULTURE TEACHER
[2019-12-18 12:16] VITALS: BP 105/70; PULSE 60; RESP 18; TEMP 36.3; O2SAT 94
--- NOTE | 2019-12-18 14:59 | CHAPLAIN ---
Type of Pastoral Visit _x__ Initial Visit ___ Follow-up Visit ___ On-call Visit ___ General Patient Visit ___ Spiritual Assessment ___ Family Conference ___ Bereavement ___ Rapid Response ___ Code Blue ___ Other (describe below) Pastoral Care Referral From _x__ Patient ___ Family ___ Nurse ___ Physician ___ Manager Merchandise ___ Diploma Dental Assistant ___ Other (describe below) Sacrament/Intervention ___ Active listening ___ Anointing ___ Jain ___ Bereavement ___ Communion ___ Antonia exploration ___ ___ Life review ___ Prayer ___ Reconciliation ___ Sacrament of Sick _x__ Supportive presence ___ Wedding ___ Other (describe below) Pastoral Comments patient was sleeping with full lunch tray before him; pt awakened easily at call of his name; however pt could not stay awake during this brief introduction of support; pt states I appreciate your stopping by, really, but I'm sorry to not be able to stay awake; pt asks for card from this phys therapist in case he would like another follow up visit
[2019-12-18] MEDS: Tamsulosin HCl 0.4 MG Capsule 0.8 MG PO (18:01)
[2019-12-18 20:08] VITALS: BP 124/81; PULSE 64; RESP 18; TEMP 36.6; O2SAT 93
[2019-12-18 23:54] VITALS: BP 120/82; PULSE 61; RESP 16; TEMP 36.6; O2SAT 93
[2019-12-19] MEDS: Phenobarbital 32.4 MG Tablet PO ×6 (00:22→21:37)
[2019-12-19] MEDS: Buprenorphine HCl 2 MG TAB.SUBL SL ×2 (06:03→14:54)
[2019-12-19 06:06] VITALS: BP 121/69; PULSE 58; RESP 18; TEMP 36.4; O2SAT 100
[2019-12-19] MEDS: Folic Acid 1 MG Tablet PO (07:43)
[2019-12-19] MEDS: Thiamine Hydrochloride 100 MG Tablet PO (07:45)
[2019-12-19] MEDS: Gabapentin 800 MG Tablet PO ×3 (07:45→16:51)
[2019-12-19] MEDS: Venlafaxine XR 75 MG Capsule PO (07:46)
--- NOTE | 2019-12-19 07:49 | PCM.PN.HOSP ---
Subjective: Patient seen and examined today. He has no complaints. He is tolerating detox well. Review of stems otherwise negative. Patient is G-tube with [facility] inpatient facility but they would want him to stay till Sunday for him to be admitted directly there. Vitals/I&O's: Vital Signs Temp Pulse Resp BP Pulse Ox 97.6 F L 58 L 18 121/69 H 100 12/19/19 06:06 12/19/19 06:06 12/19/19 06:06 12/19/19 06:06 12/19/19 06:06 Oxygen Delivery Method Room Air Weight: 175 lb 12.8 oz Body Mass Index (BMI) 25.9 Intake and Output for Last 24 Hours 12/17/19 12/18/19 12/19/19 23:59 23:59 23:59 Intake Total 800 / 800 1100 / 1100 480 / 480 Balance 800 / 800 1100 / 1100 480 / 480 General: Alert, Oriented x3, Cooperative, No apparent distress HEENT: Atraumatic, PERRLA, EOMI, Normocephalic Oral: Dry Mucosa Neck: Supple, No JVD, Negative Carotid Bruits Lungs: Clear to auscultation, Normal air movement, No rhonchi, No wheeze, No rales Cardiovascular: Regular rate, Regular Rhythm, Normal S1, Normal S2, No murmurs Abdomen: Bowel Sounds Present, Soft, Non Tender, Non-Distended, No Hepato-splenomegaly Extremities: No clubbing, No cyanosis, No edema, Capillary Refill Less than 3 Seconds Skin: No rashes, No breakdown Musculoskeletal: No Tenderness to Palpation of Joints or Extremities Lymphatic: No Cervical, Supraclavicular, or Inguinal Adenopathy Neurological: Cranial nerves II-XII grossly intact, Neuro grossly intact, Motor Exam 5/5 strength throughout Psych/Mental Status: Normal Affect, Appropriate, Alert and oriented to time, place, person, mood and affect Current Medications Buprenorphine HCl (Buprenorphine Hcl) 2 mg SL Q8H [facility]; Taper Stop: 12/20/19 14:29 Last Admin: 12/19/19 06:03 Dose: 2 mg Documented by: Clonidine (Catapres) 0.1 mg PO Q8H PRN PRN PRN Reason: RESTLESSNESS Dicyclomine HCl (Bentyl) 20 mg PO Q6H PRN PRN PRN Reason: Abdominal Discomfort Last Admin: 12/17/19 16:30 Dose: 20 mg Documented by: Folic Acid (Folic Acid) 1 mg PO DAILY@0800 [facility] Last Admin: 12/19/19 07:43 Dose: 1 mg Documented by: Gabapentin (Neurontin) 800 mg PO TIDCM [facility] Last Admin: 12/19/19 07:45 Dose: 800 mg Documented by: Hydroxyzine Pamoate (Vistaril Pamoate Capsule) 50 mg PO Q6H PRN PRN PRN Reason: mild anxiety Last Admin: 12/18/19 08:33 Dose: 50 mg Documented by: Loperamide HCl (Imodium) 2 mg PO Q4H PRN PRN PRN Reason: LOOSE STOOLS Methocarbamol (Methocarbamol) 1,500 mg PO Q6H PRN PRN PRN Reason: MUSCLE SPASM Last Admin: 12/18/19 08:33 Dose: 1,500 mg Documented by: Naproxen (Naprosyn) 500 mg PO BID PRN PRN PRN Reason: Pain 1-10 or Fever Nicotine (Nicoderm Cq (Pbkc)) 21 mg TRANSDERM. DAILY [facility] Last Admin: 12/19/19 07:46 Dose: 21 mg Documented by: Nicotine Polacrilex (Rugby Nicotine (Pbkc)) 4 mg BC Q2H PRN PRN PRN Reason: smoking censation Last Admin: 12/18/19 20:14 Dose: 4 mg Documented by: Ondansetron HCl (Zofran) 8 mg PO Q8H PRN PRN PRN Reason: NAUSEA Last Admin: 12/17/19 16:30 Dose: 8 mg Documented by: Ondansetron HCl (Zofran) 4 mg IV Q8H PRN PRN PRN Reason: NAUSEA/VOMITING Phenobarbital (Phenobarbital) 64.8 mg PO Q4H [facility]; Taper Stop: 12/22/19 00:14 Last Admin: 12/19/19 07:46 Dose: 64.8 mg Documented by: Sodium Chloride () 10 - 40 ml IV UD PRN PRN Reason: SALINE FLUSH Last Admin: 12/18/19 00:22 Dose: 10 ml Documented by: Tamsulosin HCl (Flomax) 0.8 mg PO DAILY@1730 [facility] Last Admin: 12/18/19 18:01 Dose: 0.8 mg Documented by: Thiamine HCl (Vitamin B1) 100 mg PO DAILYCM [facility] Last Admin: 12/19/19 07:45 Dose: 100 mg Documented by: Trazodone HCl (Desyrel) 100 mg PO QHS PRN PRN PRN Reason: INSOMNIA Venlafaxine HCl (Effexor Xr) 75 mg PO DAILY [facility] Last Admin: 12/19/19 07:46 Dose: 75 mg Documented by: STROKE Vital Signs/Narrative: Vital Signs Temp Pulse Resp BP Pulse Ox 12/19/19 06:06 97.6 F L 58 L 18 121/69 H 100 Medical Necessity - Tobacco Use Smoking Status: Heavy Smoker (>10/day) Tobacco Use: Cigarettes Assessment/Plan All Active Problems Alcohol withdrawal (Acute) Opiate withdrawal (Acute) 59 y/o admitted for acute opioid withdrawal # Acute opioid withdrawal on buprenorphine withdrawal protocol stable #Acute alcohol withdrawal on alcohol withdrawal protocol with phenobarbital CIWA score is 7 thiamine, folic acid and multivitamin #History of polysubstance abuse: Uses fentanyl, alcohol and methamphetamines also. Opioid withdrawal and alcohol withdrawal protocol as above. Counseled to quit methamphetamines. #Probable COVID exposure COVID test done here was negative. #Nicotine dependence: nicotine patch 21mg daily DVT prophylaxis: low risk, encourage to ambulate Disposition: for discharge to [facility] Inpatient facility on Sunday Inpatient E&M: [id number] Subs Hosp L2
[2019-12-19 08:28] VITALS: BP 104/72; PULSE 60; RESP 18; TEMP 36.8; O2SAT 96
--- NOTE | 2019-12-19 10:28 | ADDICTION ---
Patient to be picked up by [facility] transportation on 12/22/2019 at 9:15am. He will need to meet transportation planning engineer at the main entrance at that time. Stephanie at [facility] stating pt is able to direct admit to [facility] on Sunday12/22/2019 with [facility] transporting pt at 9:15am.
[2019-12-19 13:05] VITALS: BP 113/80; PULSE 98; RESP 18; TEMP 37.1; O2SAT 96
[2019-12-19] MEDS: Methocarbamol 750 MG Tablet 1500 MG PO (14:56)
[2019-12-19] MEDS: Tamsulosin HCl 0.4 MG Capsule 0.8 MG PO (16:50)
[2019-12-19] MEDS: hydrOXYzine PAM 25 MG Capsule 50 MG PO (16:56)
[2019-12-19 21:33] VITALS: BP 103/70; PULSE 71; RESP 16; TEMP 36.6; O2SAT 95
[2019-12-20 02:56] VITALS: BP 103/81; PULSE 58; RESP 16; TEMP 36.7; O2SAT 98
[2019-12-20] MEDS: Buprenorphine HCl 2 MG TAB.SUBL SL (03:03)
[2019-12-20] MEDS: Venlafaxine XR 75 MG Capsule PO (07:21)
[2019-12-20] MEDS: Gabapentin 800 MG Tablet PO ×3 (07:21→17:55)
[2019-12-20] MEDS: Thiamine Hydrochloride 100 MG Tablet PO (07:21)
[2019-12-20] MEDS: Folic Acid 1 MG Tablet PO (07:21)
[2019-12-20 07:45] VITALS: BP 120/43; PULSE 60; RESP 16; TEMP 36.6; O2SAT 94
--- NOTE | 2019-12-20 07:45 | PCM.PN.HOSP ---
Subjective: Patient seen and examined. He has no complaints this morning. Review of signs otherwise negative. He is tolerating the detox process well. He has remained hemodynamically stable. Vitals/I&O's: Vital Signs Temp Pulse Resp BP Pulse Ox 98.0 F 58 L 16 103/81 H 98 12/20/19 02:56 12/20/19 02:56 12/20/19 02:56 12/20/19 02:56 12/20/19 02:56 Oxygen Delivery Method Room Air Weight: 175 lb 12.8 oz Body Mass Index (BMI) 25.9 Intake and Output for Last 24 Hours 12/18/19 12/19/19 12/20/19 23:59 23:59 23:59 Intake Total 1100 / 1100 480 / 480 Balance 1100 / 1100 480 / 480 General: Alert, Oriented x3, Cooperative, No apparent distress HEENT: Atraumatic, PERRLA, EOMI, Normocephalic Oral: Dry Mucosa Neck: Supple, No JVD, Negative Carotid Bruits Lungs: Clear to auscultation, Normal air movement, No rhonchi, No wheeze, No rales Cardiovascular: Regular rate, Regular Rhythm, Normal S1, Normal S2, No murmurs Abdomen: Bowel Sounds Present, Soft, Non Tender, Non-Distended, No Hepato-splenomegaly Extremities: No clubbing, No cyanosis, No edema, Capillary Refill Less than 3 Seconds Skin: No rashes, No breakdown Musculoskeletal: No Tenderness to Palpation of Joints or Extremities Lymphatic: No Cervical, Supraclavicular, or Inguinal Adenopathy Neurological: Cranial nerves II-XII grossly intact, Neuro grossly intact, Motor Exam 5/5 strength throughout Psych/Mental Status: Normal Affect, Appropriate, Alert and oriented to time, place, person, mood and affect Current Medications Buprenorphine HCl (Buprenorphine Hcl) 2 mg SL Q12H [facility]; Taper Stop: 12/20/19 14:29 Last Admin: 12/20/19 03:03 Dose: 2 mg Documented by: Clonidine (Catapres) 0.1 mg PO Q8H PRN PRN PRN Reason: RESTLESSNESS Dicyclomine HCl (Bentyl) 20 mg PO Q6H PRN PRN PRN Reason: Abdominal Discomfort Last Admin: 12/17/19 16:30 Dose: 20 mg Documented by: Folic Acid (Folic Acid) 1 mg PO DAILY@0800 [facility] Last Admin: 12/20/19 07:21 Dose: 1 mg Documented by: Gabapentin (Neurontin) 800 mg PO TIDCM [facility] Last Admin: 12/20/19 07:21 Dose: 800 mg Documented by: Hydroxyzine Pamoate (Vistaril Pamoate Capsule) 50 mg PO Q6H PRN PRN PRN Reason: mild anxiety Last Admin: 12/19/19 16:56 Dose: 50 mg Documented by: Loperamide HCl (Imodium) 2 mg PO Q4H PRN PRN PRN Reason: LOOSE STOOLS Methocarbamol (Methocarbamol) 1,500 mg PO Q6H PRN PRN PRN Reason: MUSCLE SPASM Last Admin: 12/19/19 14:56 Dose: 1,500 mg Documented by: Naproxen (Naprosyn) 500 mg PO BID PRN PRN PRN Reason: Pain 1-10 or Fever Nicotine (Nicoderm Cq (Pbkc)) 21 mg TRANSDERM. DAILY [facility] Last Admin: 12/20/19 07:21 Dose: 21 mg Documented by: Nicotine Polacrilex (Rugby Nicotine (Pbkc)) 4 mg BC Q2H PRN PRN PRN Reason: smoking censation Last Admin: 12/20/19 07:22 Dose: 4 mg Documented by: Ondansetron HCl (Zofran) 8 mg PO Q8H PRN PRN PRN Reason: NAUSEA Last Admin: 12/17/19 16:30 Dose: 8 mg Documented by: Ondansetron HCl (Zofran) 4 mg IV Q8H PRN PRN PRN Reason: NAUSEA/VOMITING Phenobarbital (Phenobarbital) 64.8 mg PO Q6H [facility]; Taper Stop: 12/22/19 00:14 Last Admin: 12/20/19 06:50 Dose: Not Given Documented by: Sodium Chloride () 10 - 40 ml IV UD PRN PRN Reason: SALINE FLUSH Last Admin: 12/18/19 00:22 Dose: 10 ml Documented by: Tamsulosin HCl (Flomax) 0.8 mg PO DAILY@1730 [facility] Last Admin: 12/19/19 16:50 Dose: 0.8 mg Documented by: Thiamine HCl (Vitamin B1) 100 mg PO DAILYCM [facility] Last Admin: 12/20/19 07:21 Dose: 100 mg Documented by: Trazodone HCl (Desyrel) 100 mg PO QHS PRN PRN PRN Reason: INSOMNIA Venlafaxine HCl (Effexor Xr) 75 mg PO DAILY [facility] Last Admin: 12/20/19 07:21 Dose: 75 mg Documented by: Medical Necessity - Tobacco Use Smoking Status: Heavy Smoker (>10/day) Tobacco Use: Cigarettes Assessment/Plan All Active Problems Alcohol withdrawal (Acute) Opiate withdrawal (Acute) 59 y/o admitted for acute opioid withdrawal # Acute opioid withdrawal on buprenorphine withdrawal protocol stable #Acute alcohol withdrawal on alcohol withdrawal protocol with phenobarbital CIWA score is 3 today thiamine, folic acid and multivitamin #History of polysubstance abuse: Uses fentanyl, alcohol and methamphetamines also. Opioid withdrawal and alcohol withdrawal protocol as above. Counseled to quit methamphetamines. #Probable COVID exposure COVID test done here was negative. #Nicotine dependence: nicotine patch 21mg daily DVT prophylaxis: low risk, encourage to ambulate Disposition: for discharge to [facility] on Sunday Inpatient E&M: [id number] Subs Hosp L2
[2019-12-20] MEDS: Phenobarbital 32.4 MG Tablet PO ×3 (12:05→23:36)
[2019-12-20 14:52] VITALS: BP 128/83; PULSE 78; RESP 16; TEMP 36.6; O2SAT 92
[2019-12-20 14:55] VITALS: BP 128/83; PULSE 78; RESP 16; TEMP 36.6; O2SAT 92
[2019-12-20] MEDS: Tamsulosin HCl 0.4 MG Capsule 0.8 MG PO (17:55)
[2019-12-20 23:35] VITALS: BP 119/79; PULSE 61; RESP 16; TEMP 36.8; O2SAT 94
[2019-12-21] MEDS: Phenobarbital 32.4 MG Tablet PO ×2 (05:31→14:52)
[2019-12-21 05:39] VITALS: BP 138/79; PULSE 62; RESP 16; TEMP 36.6; O2SAT 98
--- NOTE | 2019-12-21 07:29 | PCM.PN.HOSP ---
Subjective: Patient seen and examined. No active events overnight. Review of systems otherwise negative. He is awaiting discharge to [facility] inpatient rehab facility tomorrow. Vitals/I&O's: Vital Signs Temp Pulse Resp BP Pulse Ox 98 F 62 16 138/79 H 98 12/21/19 05:39 12/21/19 05:39 12/21/19 05:39 12/21/19 05:39 12/21/19 05:39 Oxygen Delivery Method Room Air Weight: 175 lb 12.8 oz Body Mass Index (BMI) 25.9 Intake and Output for Last 24 Hours 12/19/19 12/20/19 12/21/19 23:59 23:59 23:59 Intake Total 480 / 480 800 / 800 Balance 480 / 480 800 / 800 General: Alert, Oriented x3, Cooperative, No apparent distress HEENT: Atraumatic, PERRLA, EOMI, Normocephalic Oral: Dry Mucosa Neck: Supple, No JVD, Negative Carotid Bruits Lungs: Clear to auscultation, Normal air movement, No rhonchi, No wheeze, No rales Cardiovascular: Regular rate, Regular Rhythm, Normal S1, Normal S2, No murmurs Abdomen: Bowel Sounds Present, Soft, Non Tender, Non-Distended, No Hepato-splenomegaly Extremities: No clubbing, No cyanosis, No edema, Capillary Refill Less than 3 Seconds Skin: No rashes, No breakdown Musculoskeletal: No Tenderness to Palpation of Joints or Extremities Lymphatic: No Cervical, Supraclavicular, or Inguinal Adenopathy Neurological: Cranial nerves II-XII grossly intact, Neuro grossly intact, Motor Exam 5/5 strength throughout Psych/Mental Status: Normal Affect, Appropriate, Alert and oriented to time, place, person, mood and affect Current Medications Clonidine (Catapres) 0.1 mg PO Q8H PRN PRN PRN Reason: RESTLESSNESS Dicyclomine HCl (Bentyl) 20 mg PO Q6H PRN PRN PRN Reason: Abdominal Discomfort Last Admin: 12/17/19 16:30 Dose: 20 mg Documented by: Folic Acid (Folic Acid) 1 mg PO DAILY@0800 [facility] Last Admin: 12/20/19 07:21 Dose: 1 mg Documented by: Gabapentin (Neurontin) 800 mg PO TIDCM [facility] Last Admin: 12/20/19 17:55 Dose: 800 mg Documented by: Hydroxyzine Pamoate (Vistaril Pamoate Capsule) 50 mg PO Q6H PRN PRN PRN Reason: mild anxiety Last Admin: 12/19/19 16:56 Dose: 50 mg Documented by: Loperamide HCl (Imodium) 2 mg PO Q4H PRN PRN PRN Reason: LOOSE STOOLS Methocarbamol (Methocarbamol) 1,500 mg PO Q6H PRN PRN PRN Reason: MUSCLE SPASM Last Admin: 12/19/19 14:56 Dose: 1,500 mg Documented by: Naproxen (Naprosyn) 500 mg PO BID PRN PRN PRN Reason: Pain 1-10 or Fever Nicotine (Nicoderm Cq (kc)) 21 mg TRANSDERM. DAILY [facility] Last Admin: 12/20/19 07:21 Dose: 21 mg Documented by: Nicotine Polacrilex (Rugby Nicotine (kc)) 4 mg BC Q2H PRN PRN PRN Reason: smoking censation Last Admin: 12/21/19 05:43 Dose: 4 mg Documented by: Ondansetron HCl (Zofran) 8 mg PO Q8H PRN PRN PRN Reason: NAUSEA Last Admin: 12/17/19 16:30 Dose: 8 mg Documented by: Ondansetron HCl (Zofran) 4 mg IV Q8H PRN PRN PRN Reason: NAUSEA/VOMITING Phenobarbital (Phenobarbital) 32.4 mg PO Q6H [facility]; Taper Stop: 12/22/19 00:14 Last Admin: 12/21/19 05:31 Dose: 32.4 mg Documented by: Sodium Chloride () 10 - 40 ml IV UD PRN PRN Reason: SALINE FLUSH Last Admin: 12/18/19 00:22 Dose: 10 ml Documented by: Tamsulosin HCl (Flomax) 0.8 mg PO DAILY@1730 [facility] Last Admin: 12/20/19 17:55 Dose: 0.8 mg Documented by: Thiamine [facility] ([facility] B[facility]) [facility] Last Admin: 12/20/19 07:21 Dose: 100 mg Documented by: Trazodone HCl (Desyrel) 100 mg PO QHS PRN PRN PRN Reason: INSOMNIA Venlafaxine HCl (Effexor Xr) 75 mg PO DAILY [facility] Last Admin: 12/20/19 07:21 Dose: 75 mg Documented by: STROKE Vital Signs/Narrative: Vital Signs Temp Pulse Resp BP Pulse Ox 12/21/19 05:39 98 F 62 16 138/79 H 98 Medical Necessity - Tobacco Use Smoking Status: Heavy Smoker (>10/day) Tobacco Use: Cigarettes Assessment/Plan All Active Problems Alcohol withdrawal (Acute) Opiate withdrawal (Acute) 59 y/o admitted for acute opioid withdrawal # Acute opioid withdrawal on buprenorphine withdrawal protocol stable #Acute alcohol withdrawal on alcohol withdrawal protocol with phenobarbital CIWA score is 3 today thiamine, folic acid and multivitamin #History of polysubstance abuse: Uses fentanyl, alcohol and methamphetamines also. Opioid withdrawal and alcohol withdrawal protocol as above. Counseled to quit methamphetamines. #Probable COVID exposure COVID test done here was negative. #Nicotine dependence: nicotine patch 21mg daily DVT prophylaxis: low risk, encourage to ambulate Disposition: for discharge to [facility] Inpatient facility on Sunday Inpatient E&M: [id number] Subs Hosp L2
[2019-12-21] MEDS: Folic Acid 1 MG Tablet PO (09:15)
[2019-12-21] MEDS: Venlafaxine XR 75 MG Capsule PO (09:16)
[2019-12-21] MEDS: Gabapentin 800 MG Tablet PO ×3 (09:16→16:57)
[2019-12-21] MEDS: Thiamine Hydrochloride 100 MG Tablet PO (09:16)
[2019-12-21 09:32] VITALS: BP 114/84; PULSE 64; RESP 18; TEMP 36.6; O2SAT 97
[2019-12-21 14:00] VITALS: BP 124/82; PULSE 66; RESP 18; TEMP 36.7; O2SAT 96
[2019-12-21] MEDS: Tamsulosin HCl 0.4 MG Capsule 0.8 MG PO (16:58)
[2019-12-21] MEDS: Naproxen 500 MG Tablet PO (16:58)
[2019-12-21 19:56] VITALS: BP 110/60; PULSE 62; RESP 16; TEMP 37.1; O2SAT 98
[2019-12-21] MEDS: Acetaminophen 500 MG Tablet PO (20:10)
[2019-12-21] MEDS: hydrOXYzine PAM 25 MG Capsule 50 MG PO (20:12)
[2019-12-22 02:03] VITALS: BP 98/48; PULSE 64; RESP 16; TEMP 36.6; O2SAT 94
[2019-12-22] MEDS: Thiamine Hydrochloride 100 MG Tablet PO (08:43)
[2019-12-22] MEDS: Folic Acid 1 MG Tablet PO (08:43)
[2019-12-22] MEDS: Venlafaxine XR 75 MG Capsule PO (08:44)
[2019-12-22] MEDS: Gabapentin 800 MG Tablet PO (08:44)
[2019-12-22 08:45] VITALS: BP 126/81; PULSE 63; RESP 18; TEMP 36.3; O2SAT 100
--- NOTE | 2019-12-22 08:49 | DCINST_ITS ---
You will use the following diet at home:: No restrictions Your food should be the consistency of: Regular Your liquids should be the consistency of: Regular/Thin Discharge Activity: Return to Normal Activity, No Restrictions, May Drive Allergies/Adverse Reactions: Allergies oxycodone Allergy (Unknown, Verified 12/17/19 11:43) Unknown meloxicam Allergy (Verified 12/17/19 11:43) Hives Medications to take at Discharge Gabapentin [Neurontin] 800 mg PO TIDCM 07/31/17 Venlafaxine HCl [Effexor Xr] 75 mg PO DAILY 07/31/17 Nicotine Polacrilex [Nicotine Lozenge] 4 mg BC Q2H PRN PRN 02/27/19 Tamsulosin HCl [Flomax] 0.8 mg PO QHS 02/27/19 Naproxen [Naprosyn] 500 mg PO BID PRN PRN 12/17/19 Nicotine Polacrilex [Nicotine Gum] 4 mg BC Q2H PRN PRN 12/17/19 Primary Care Physician: Demetrio Martin MD [Primary Care Provider] - Please follow up with your Primary Care Physician in: 1-2 weeks for hospital follow up Test Results: Test results from this visit will be discussed in further detail at your follow- up appointment, if applicable. Please Follow Up With: 180 When: today as scheduled
--- NOTE | 2019-12-22 08:50 | PCM.DC.SUM ---
Discharge Date and Diagnosis Date of Admission: 12/17/19 Date of Discharge: 12/22/19 - Secondary Discharge Diagnosis Chronic Problems: Chronic Problems Polysubstance abuse (Chronic) Heroin addiction (Chronic) Restless leg syndrome (Chronic) Depression (Chronic) History of alcohol abuse (Chronic) Tobacco abuse (Chronic) History of MRSA infection (Chronic) Hospital Course and Treatment Operations: None Procedures: None Summary of Care Provided: Mr. Winslow is a 59 year old M with a PMH of polysubstance abuse. He uses alcohol, opiates (mainly fentanyl), and methamphetamine. He has been through detox before some years ago but said it lasted only about 6 months. Patient was admitted through the ED on 12/17/2019 for opioid withdrawal. The pt stated he when he uses fentanyl he either injects or snorts. He last snorted about 0.5 g of fentanyl 2 days ago. He admitted to sharing needles with other people just about a couple of months ago. He also drinks about 12 cans of beer daily and his last drink was on the day of admission. On admission he denied any headache, chest pain, blurred vision, palpitations, dizziness, tremors, abdominal pain, diarrhea vomiting. In the ED, vitals show temperature of 96.5 Fahrenheit with blood pressure of 122/88 and pulse rate of 76 with respiratory of 16. He was saturating at 98% on room air. CBC and CMP were essentially unremarkable and urine tox was positive for methamphetamines with serum alcohol level of 48. He was admitted and to be managed for acute opioid withdrawal and acute alcohol withdrawal. He was treated with buprenorphine and phenobarbital with prn meds for sx available. Mr Winslow did quite well and has been accepted to the [facility] in facility. He will be discharged today and admitted there following. - Physical Exam Vitals/I&O's: Vital Signs Temp Pulse Resp BP Pulse Ox 98 F 64 16 98/48 L 94 12/22/19 02:03 12/22/19 02:03 12/22/19 02:03 12/22/19 02:03 12/22/19 02:03 Oxygen Delivery Method Room Air Weight: 79.742 kg Body Mass Index (BMI) 25.9 Intake and Output for Last 24 Hours 12/20/19 12/21/19 12/22/19 23:59 23:59 23:59 Intake Total 800 / 800 Balance 800 / 800 General: Alert, Oriented x3, Cooperative, No apparent distress, Well developed, Well nourished, - - middle aged WM sitting up in bed eating breakfast and watching TV Lungs: No rhonchi, No wheeze, No rales, Diminished - diffusely Cardiovascular: Regular rate, Regular Rhythm, Normal S1, Normal S2, No murmurs, No Ectopic Activity, No rub noted, No Gallop Abdomen: Bowel Sounds Present, Soft, Non Tender, Non-Distended, No hernias noted Extremities: No clubbing, No cyanosis, No edema, Capillary Refill Less than 3 Seconds, Peripheral Pulses Normal Neurological: Cranial nerves II-XII grossly intact, Neuro grossly intact Psych/Mental Status: Normal Affect, Appropriate, Alert and oriented to time, place, person, mood and affect Current Medications Acetaminophen (Tylenol) 500 mg PO Q4H PRN PRN PRN Reason: Temp > 100.4 F, pain 1-10 Last Admin: 12/21/19 20:10 Dose: 500 mg Documented by: Al Hydroxide/Mg Hydroxide (Mylanta Ii) 30 ml PO Q6H PRN PRN PRN Reason: dyspesia Bisacodyl (Dulcolax) 10 mg RECTAL DAILY PRN PRN PRN Reason: Constipation Clonidine (Catapres) 0.1 mg PO Q8H PRN PRN PRN Reason: RESTLESSNESS Dicyclomine HCl (Bentyl) 20 mg PO Q6H PRN PRN PRN Reason: Abdominal Discomfort Last Admin: 12/17/19 16:30 Dose: 20 mg Documented by: Folic Acid (Folic Acid) 1 mg PO DAILY@0800 [facility] Last Admin: 12/22/19 08:43 Dose: 1 mg Documented by: Gabapentin (Neurontin) 800 mg PO TIDCM [facility] Last Admin: 12/22/19 08:44 Dose: 800 mg Documented by: Hydroxyzine Pamoate (Vistaril Pamoate Capsule) 50 mg PO Q6H PRN PRN PRN Reason: mild anxiety Last Admin: 12/21/19 20:12 Dose: 50 mg Documented by: Loperamide HCl (Imodium) 2 mg PO Q4H PRN PRN PRN Reason: LOOSE STOOLS Methocarbamol (Methocarbamol) 1,500 mg PO Q6H PRN PRN PRN Reason: MUSCLE SPASM Last Admin: 12/19/19 14:56 Dose: 1,500 mg Documented by: Naproxen (Naprosyn) 500 mg PO BID PRN PRN PRN Reason: Pain 1-10 or Fever Last Admin: 12/21/19 16:58 Dose: 500 mg Documented by: Nicotine (Nicoderm Cq ([facility])) 21 mg TRANSDERM. DAILY [facility] Last Admin: 12/22/19 08:49 Dose: 21 mg Documented by: Nicotine Polacrilex (Rugby Nicotine ([facility])) 4 mg BC Q2H PRN PRN PRN Reason: smoking censation Last Admin: 12/22/19 08:44 Dose: 4 mg Documented by: Ondansetron HCl (Zofran) 8 mg PO Q8H PRN PRN PRN Reason: NAUSEA Last Admin: 12/17/19 16:30 Dose: 8 mg Documented by: Ondansetron HCl (Zofran) 4 mg IV Q8H PRN PRN PRN Reason: NAUSEA/VOMITING Senna (Senokot) 2 tablet PO QHS PRN PRN PRN Reason: Constipation Sodium Chloride () 10 - 40 ml IV UD PRN PRN Reason: SALINE FLUSH Last Admin: 12/18/19 00:22 Dose: 10 ml Documented by: Tamsulosin HCl (Flomax) 0.8 mg PO DAILY@1730 [facility] Last Admin: 12/21/19 16:58 Dose: 0.8 mg Documented by: Thiamine HCl ([facility]itamin [facility]) [facility] Last Admin: 12/22/19 08:43 Dose: 100 mg Documented by: Trazodone HCl (Desyrel) 100 mg PO QHS PRN PRN PRN Reason: INSOMNIA Venlafaxine HCl (Effexor Xr) 75 mg PO DAILY [facility] Last Admin: 12/22/19 08:44 Dose: 75 mg Documented by: Discharge Activity: Return to Normal Activity, No Restrictions, May Drive Home Medications: Medications to take at Discharge Gabapentin [Neurontin] 800 mg PO TIDCM 07/31/17 Venlafaxine HCl [Effexor Xr] 75 mg PO DAILY 07/31/17 Nicotine Polacrilex [Nicotine Lozenge] 4 mg BC Q2H PRN PRN 02/27/19 Tamsulosin HCl [Flomax] 0.8 mg PO QHS 02/27/19 Naproxen [Naprosyn] 500 mg PO BID PRN PRN 12/17/19 Nicotine Polacrilex [Nicotine Gum] 4 mg BC Q2H PRN PRN 12/17/19 Primary Care Physician: Demetrio Martin MD [Primary Care Provider] - Please follow up with your Primary Care Physician in: 1-2 weeks for hospital follow up Please Follow Up With: 180 When: today as scheduled Medical Necessity - Tobacco Use Smoking Status: Heavy Smoker (>10/day) Tobacco Use: Cigarettes Meaningful Use Info Meaningful Use Diagnoses (Choose all that apply): None applicable Inpatient E&M: [id number] [facility]
== END 2019-12-22 09:29 | disposition home or self-care (01) | DRG 773 ==
LOC: ED 12:25 → MS3 12:27
PROVIDERS: Admitting Provider Student in an Organized Health Care Education/Training Program; Emergency Provider Emergency Medicine; PCP Internal Medicine; Visit Provider Internal Medicine
DX: F11.23 Opioid dependence with withdrawal (principal); F10.239 Alcohol dependence with withdrawal, unspecified; Y90.2 Blood alcohol level of 40-59 mg/100 ml; F15.10 Other stimulant abuse, uncomplicated; G25.81 Restless legs syndrome; F32.9 Major depressive disorder, single episode, unspecified; Z79.899 Other long term (current) drug therapy; Z86.14 Personal history of Methicillin resistant Staphylococcus aureus infection; F17.210 Nicotine dependence, cigarettes, uncomplicated; Z20.828 Contact with and (suspected) exposure to other viral communicable diseases
CPT/HCPCS: 80053; 80307; 80320; 85025; 87635; 99285; 99406; 90686; A4216; G0480; U0003

== ENCOUNTER 2020-01-26 15:44 | Observation (INO) | payer MEDICAID, SELFPAY ==
[2019-12-17 13:00] VITALS: BMI 25.9
[2020-01-26] VITALS (9 sets, daily range): BP systolic 113–134; BP diastolic 76–92; PULSE 52–71; RESP 14–18; TEMP 36.3–36.9; O2SAT 95–100; BMI 28.8; BMI 29.0
--- NOTE | 2020-01-26 16:34 | CT_ITS ---
STUDY: CT BRAIN WITHOUT CONTRAST REASON FOR EXAM: Male, 60 years old. Left-sided weakness, drug use RADIATION DOSAGE (If Supplied By Facility): CTDIvol = ( 44.99 ) mGy, DLP = ( 846.73 ) mGycm TECHNIQUE: Transaxial CT imaging of the brain was performed without administration of intravenous contrast material. Individualized dose optimization techniques were used for this CT. COMPARISON: No relevant priors. FINDINGS: Brain parenchyma is without focal lesions, mass effect, acute intracranial hemorrhage, extra parenchymal fluid collections, hydrocephalus or herniation. The skull is intact. CT/Brain/Head without Contrast IMPRESSION: 1. Normal CT brain. Electronically Signed: Alfred Lua, at 18:15 EST Tel , Service support ,
--- NOTE | 2020-01-26 16:34 | RAD_ITS ---
STUDY: X-RAY CHEST REASON FOR EXAM: Male, 60 years old. Neuro deficit, acute, stroke suspected. Left sided weakness. TECHNIQUE: Single AP portable view of the chest. COMPARISON: 01/11/2017 FINDINGS: EKG leads overlie the chest The lungs are clear and expanded. There is no demonstrated pleural abnormality. Normal size heart. Normal mediastinum and mable. Normal visualized pulmonary arteries. Normal visualized aortic arch and descending thoracic aorta. There are diffuse degenerative changes of the visualized thoracic spine. Normal visualized ribs, clavicles, and shoulders. There is no demonstrated abnormality of the visualized soft tissue structures of the upper abdomen. RAD/Chest 1 View IMPRESSION: No acute pulmonary process Electronically Signed: Hai Johns MD at 17:14 EST , Service support ,
--- NOTE | 2020-01-26 16:34 | EKG12_ITS ---
Test Reason : STROKE Blood Pressure : / mmHG Vent. Rate : 058 BPM Atrial Rate : 058 BPM P-R Int : 136 ms QRS Dur : 088 ms QT Int : 426 ms P-R-T Axes : 046 018 035 degrees QTc Int : 418 ms Sinus bradycardia Otherwise normal ECG Confirmed by KEARA HONEYCUTT, OPAL ([id number]), publications editor SIMA SAXENA ([id number]) on 01/27/2020 1:08:38 PM Referred By: Caren Metcalf Confirmed By:OPAL SARAH MD
--- NOTE | 2020-01-26 16:36 | ED.VIS.GEN ---
History of Present Illness Chief Complaint: Neuro S/Sx Informant: Patient Onset: Days Current Severity: Mild Maximum Severity: Moderate Narrative: Patient presents secondary to left-sided weakness. He states at 9 AM on Sunday the he became very dizzy with vertigo-like symptoms. He noted his left side was extremely weak and he fell into the wall. He states since that time his left side feels extremely uncoordinated and weak. He denies chest pain or shortness of breath. He denies headache. - Past Medical History (1) Depression Status: Chronic (2) Restless leg syndrome Status: Chronic Past Medical History - Allergies and Home Meds Allergies/Adverse Reactions: Allergies oxycodone Allergy (Unknown, Verified 12/17/19 11:43) Unknown meloxicam Allergy (Verified 12/17/19 11:43) Hives Primary Care Physician: Demetrio Martin MD [Primary Care Provider] - Surgical History: no surgical history, - Lives: - - Recovery house Smoking Status: Current every day smoker - Family History Maternal Family History: Reports: Cancer Paternal Family History: Reports: No pertinent history Review of Systems General: Denies: Chills, Fever Eyes: Denies: Visual changes - bilaterally ENT: Denies: Bilateral ear pain Cardiovascular: Denies: Chest pain Respiratory: Denies: Dyspnea, Cough Gastrointestinal: Denies: Abdominal pain, Nausea, Vomiting, Diarrhea Musculoskeletal: Denies: Extremity Pain Skin: Denies: Rash Neurological: Reports: Weakness, Parasthesia. Denies: Headache Hematologic: Denies: Easy bruising, Easy bleeding Allergy: Denies: Uticaria Physical Exam Vital Signs/Narrative: Vital Signs Temp Pulse Resp BP Pulse Ox 01/26/20 15:45 97.4 F L 71 16 120/76 97 Inital Vital Signs reviewed: Yes General: Well nourished, Well developed Head: Normocephalic ENT: Moist mucous membranes Neck: Supple Cardiovascular: Regular rate, Regular rhythm Respiratory: No distress, CTA bilaterally Abdomen: Soft, Nontender, Normal bowel sounds Back: Nontender Skin: Normal color Neurological: Alert, Oriented x3, - - NIH score equals 4 at time of my examination. He received one-point for left arm weakness, one-point for left leg weakness, one-point for limb ataxia, 1 point for sensory loss. Psychological: Normal affect Diagnostic/Tx/Re-eval Impressions Brain CT 01/26/20 16:34 IMPRESSION: 1. Normal CT brain. Electronically Signed: Alfred Stoney, at 18:15 EST Tel , Service support , Chest X-Ray 01/26/20 16:34 IMPRESSION: No acute pulmonary process Electronically Signed: Hia Johns MD at 17:14 EST , Service support , Head/Neck CTA 01/26/20 17:50 IMPRESSION: Normal CTA Head and neck with contrast. Electronically Signed: Winterkp Stoney, at 18:27 EST Tel , Service support , 01/26/20 16:34 Brain/Head without Contrast [CT] Stat Chest 1 View [RAD] Stat 01/26/20 17:50 CTA Head AND Neck W/ Contrast [CT] Stat Laboratory Results 01/26/20 01/26/20 01/26/20 16:23 16:23 16:23 WBC 4.1 L RBC 5.21 Hgb 15.0 Hct 45.9 MCV 88.1 MCH 28.8 MCHC 32.7 RDW Std Deviation 46.0 H RDW Coeff of Brad 14.3 Plt Count 120 L MPV 12.0 Immature Gran % (Auto) 0.200 Neut % (Auto) 58.6 Lymph % (Auto) 28.4 [place] % (Auto) 7.4 Eos % (Auto) 4.2 Baso % (Auto) 1.2 H Absolute Neuts (auto) 2.4 Absolute Lymphs (auto) 1.15 Nucleated RBC % 0 PT 13.2 INR 1.1 APTT 31.2 Sodium 139 Potassium 4.3 Chloride 106 Carbon Dioxide 30.0 Anion Gap 3 L BUN 21 H Creatinine 0.96 Estim Creat Clear Calc 83.87 Est GFR (MDRD) Af Amer 104 Est GFR (MDRD) Non-Af 86 BUN/Creatinine Ratio 22.0 H Glucose 85 Calcium 8.6 Troponin I < 0.015 POC Glucose 01/26/20 16:35 WBC RBC Hgb Hct MCV MCH MCHC RDW Std Deviation RDW Coeff of Brad Plt Count MPV Immature Gran % (Auto) Neut % (Auto) Lymph % (Auto) [place] % (Auto) Eos % (Auto) Baso % (Auto) Absolute Neuts (auto) Absolute Lymphs (auto) Nucleated RBC % PT INR APTT Sodium Potassium Chloride Carbon Dioxide Anion Gap BUN Creatinine Estim Creat Clear Calc Est GFR (MDRD) Af Amer Est GFR (MDRD) Non-Af BUN/Creatinine Ratio Glucose Calcium Troponin I POC Glucose 80 - EKG Initial EKG Interpretation: Sinus Bradycardia - Sinus bradycardia 58 bpm. No acute ischemia. - Medical Decision Making Patient has remained stable while in the emergency room. He still continues to have mild left-sided deficit. He will be admitted for further stroke work-up. ED Disposition - Plan for ED Patient: Disposition: Acute Care Hospital [facility] Diagnosis: CVA (cerebral vascular accident) Referrals: Demetrio Martin MD [Primary Care Provider] -
[2020-01-26] MEDS: 0.9% Normal Saline 1,000 ML 100 ML IV (16:43)
[2020-01-26 16:56] LABS: Bedside Glucose 80 mg/dL (70-110)
[2020-01-26 17:06] LABS: Absolute Lymphocyte Count 1.15 X10^3/uL (0.83-4.51); Absolute Neutrophil Count 2.4 X10^3/uL (2.0-7.7); Basophil# 0.05 X10^3/uL; Basophil% 1.2 % (0-1); Eosinophil# 0.17 X10^3/uL; Eosinophils% 4.2 % (0-5); Hematocrit 45.9 % (40-54); Lymphocyte # 1.15 X10^3/ul (4.0); Lymphocyte % 28.4 % (19-41); Mean Corp Hgb Conc 32.7 g/dL (32-36); Mean Corpuscular Hgb 28.8 pg (27.0-32.0); Mean Corpuscular Volume 88.1 fL (80-94); Monocyte% 7.4 % (0-10); NRBC Flagged by Analyzer 0 % (0-5); Neutrophil # 2.37 X10^3/uL (2.7-7.7); Neutrophil % 58.6 % (47-70); Platelet Count 120 K/mm3 (150-450); RBC Distribution Width CV 14.3 % (11.6-14.6); Red Blood Count 5.21 M/mm3 (4.6-6.2); White Blood Count 4.1 K/mm3 (4.4-11.0)
[2020-01-26 17:24] LABS: International Normalized Ratio 1.1; Prothrombin Time (Protime)PT. 13.2 SECONDS (11.7-14.9)
[2020-01-26 17:26] LABS: Anion Gap 3 (5-15); BUN 21 mg/dL (7-18); Calcium,Total 8.6 mg/dL (8.5-10.1); Chloride 106 mmol/L (98-107); Creatinine, Serum 0.96 mg/dL (0.70-1.30); EST Glomerular Filtration Rate 86 mL/min (>60); Est Glom Filt Rate - Afr Amer 104 mL/min (>60); Estimated Creatinine Clearance 83.87 ml/min; Glucose 85 mg/dL (74-106); Partial Thromboplast Time 31.2 Seconds (24.1-36.2); Potassium 4.3 mmol/L (3.5-5.1); Sodium Level 139 mmol/L (136-145)
--- NOTE | 2020-01-26 17:50 | CT_ITS ---
STUDY: CTA HEAD AND NECK WITH CONTRAST REASON FOR EXAM: Male, 60 years old. left sided weakness x 2 days. drug user RADIATION DOSAGE (If Supplied By Facility): CTDIvol = ( 28.61 ) mGy, DLP = ( 843.22 ) mGycm TECHNIQUE: CT angiography was performed with a multi-detector CT scanner. Data acquisition was obtained from the skull base through the vertex following intravenous administration of IV 100mL [id number]-[id number]. MIP images were reconstructed from the axial data set. Post-processing of the angiographic images was performed, with multiplanar reformation and 3D reconstruction. Individualized dose optimization techniques were used for this CT. COMPARISON: No relevant priors. FINDINGS: Normal bilateral petrous carotid arteries. Normal right cavernous carotid artery with a normal supraclinoid bifurcation. Normal left cavernous carotid artery with a normal supraclinoid bifurcation. Normal right A1 segments of the anterior cerebral artery. Normal left A1 segments of the anterior cerebral artery. Normal intact anterior communicating artery (ACOM). Normal bilateral A2 segments of the anterior cerebral arteries. Normal right M1 and M2 segments of the middle cerebral arteries, with a normal M1 bifurcation. Normal left M1 and M2 segments of the middle cerebral arteries, with a normal M1 bifurcation. Posterior commuting arteries are large on the right with origin [employer] and not seen on the left. Normal bilateral vertebral arteries. Normal basilar artery with a normal basilar bifurcation. The visualized bilateral superior cerebellar (SCA) arteries are normal. Normal bilateral P1, P2 and visualized P3 segments of the posterior cerebral arteries. Dural venous sinuses are patent. There is no demonstrated aneurysm of the [place]. There is no demonstrated abnormality of the visualized brain. AORTIC ARCH: Normal visualized aortic arch. Normal origins of the brachiocephalic, left common carotid, and left subclavian arteries. RIGHT CAROTID ARTERIES: Normal right common carotid artery (CCA). Normal right common carotid bulb. Normal origin of the right internal carotid (ICA) artery without a hemodynamically significant stenosis. Normal visualized cervical portion of the right internal carotid artery. Normal origin of the right external carotid artery (ECA). LEFT CAROTID ARTERIES: Normal left common carotid artery (CCA). Normal left common carotid bulb. Normal origin of the left internal carotid (ICA) artery without a hemodynamically significant stenosis. Normal visualized cervical portion of the left internal carotid artery. Normal origin of the left external carotid artery (ECA). VERTEBRAL ARTERIES: Normal bilateral vertebral arteries. CT/CTA Head AND Neck W/ Contrast IMPRESSION: Normal CTA Head and neck with contrast. Electronically Signed: Alfred Lua, at 18:27 EST Tel , Service support ,
--- NOTE | 2020-01-26 19:05 | HP.PCM_ITS ---
History of Present Illness Date of Admission: 01/26/20 Chief Complaint: left sided weakness The patient is a 60 year old M with a past medical history of depression and restless leg syndrome who was admitted through the ED on 01/26/2020 with a complaint of left-sided weakness. Patient states that around 9 AM on Sunday, 24 January 2020, he became very dizzy with vertigo-like symptoms and states he fell and crashed into a wall. Symptoms have persisted and he comes in with left-sided weakness. He denies any headache, blurred vision, review of symptoms otherwise negative. Results in the ED showed temperature of 97.4 Fahrenheit with blood pressure of 113/88, pulse rate of 65 and respiratory of 18. CT of the brain was normal CT of the head and neck with contrast was also normal. He has been admitted to be managed for right-sided weakness due to probable stroke. [] Past Medical History Past Medical History (Chronic Problems): Chronic Problems Polysubstance abuse (Chronic) Heroin addiction (Chronic) Restless leg syndrome (Chronic) Depression (Chronic) History of alcohol abuse (Chronic) Tobacco abuse (Chronic) History of MRSA infection (Chronic) Allergies oxycodone Allergy (Unknown, Verified 12/17/19 11:43) Unknown meloxicam Allergy (Verified 12/17/19 11:43) Hives Home Medications: Ambulatory Orders Medication Instructions Recorded Gabapentin [Neurontin] 800 mg PO TIDCM 07/31/17 Venlafaxine HCl [Effexor Xr] 75 mg PO DAILY 07/31/17 Nicotine Polacrilex [Nicotine 4 mg BC Q2H PRN PRN 02/27/19 Lozenge] Tamsulosin HCl [Flomax] 0.8 mg PO DAILY 02/27/19 Naproxen [Naprosyn] 500 mg PO BID PRN PRN 12/17/19 Nicotine [Nicoderm Cq (PBKC)] 21 mg TRANSDERM. DAILY 01/26/20 Surgical History: no surgical history, - Psychiatric History: No pertinent psych hx, Depression Lives: - - Recovery house Smoking Status: Current every day smoker Tobacco Use: Cigarettes, Vapor - *Family History Maternal History Items: Cancer Paternal History Items: No pertinent history Review of Systems Constitutional: Denies: Chills, Fever, Malaise, Weakness, Weight Change Eyes: Denies: Blurred vision HEENT: Denies: Head Aches, Sinus Congestion, Sinus Drainage Cardiovascular: Denies: Chest Pain, Palpitations Respiratory: Denies: Cough, Shortness of Breath, Shortness of breath at rest, Shortness of breath upon exertion, Sputum production Gastrointestinal: Denies: Abdominal Pain, Nausea, Vomiting Genitourinary: Denies: Dysuria Musculoskeletal: Denies: Joint Pain, Joint Tenderness Skin: Denies: Rash, Wounds Neurological: Reports: Focal weakness - left sided weakness. Denies: Numbness, Tingling Psychiatric: Denies: Anxiety, Depression, Homicidal Ideations, Suicidal Ideati ons Hematologic/ Lymphatic: Denies: Easy Bruising, Easy Bleeding VTE Information - Inpt Only VTE Present on Admission: No VTE Pharm Prophylaxis ordered?: Yes Patient Problems: Active and Suspected Problems CVA (cerebral vascular accident) (Acute) - Physical Exam Vitals/I&O's: Vital Signs Temp Pulse Resp BP Pulse Ox 97.4 F L 65 18 113/88 H 97 01/26/20 15:45 01/26/20 18:31 01/26/20 18:31 01/26/20 18:31 01/26/20 18:31 Oxygen Delivery Method Room Air Weight: 195 lb Body Mass Index (BMI) 28.8 Finger Stick Blood Glucose 80 General: Alert, Oriented x3, Cooperative, No apparent distress HEENT: Atraumatic, PERRLA, EOMI, Normocephalic Oral: Dry Mucosa Neck: Supple, No JVD, Negative Carotid Bruits Lungs: Clear to auscultation, Normal air movement, No rhonchi, No wheeze, No rales Cardiovascular: Regular rate, Regular Rhythm, Normal S1, Normal S2, No murmurs Abdomen: Bowel Sounds Present, Soft, Non Tender, Non-Distended, No Hepato- splenomegaly Extremities: No clubbing, No cyanosis, No edema, Capillary Refill Less than 3 Seconds Skin: No rashes, No breakdown Musculoskeletal: No Tenderness to Palpation of Joints or Extremities Lymphatic: No Cervical, Supraclavicular, or Inguinal Adenopathy Neurological: Cranial nerves II-XII grossly intact Psych/Mental Status: Normal Affect, Appropriate, Alert and oriented to time, place, person, mood and affect Laboratory Results 01/26/20 16:23: WBC 4.1 L, RBC 5.21, Hgb 15.0, Hct 45.9, MCV 88.1, MCH 28.8, MCHC 32.7, RDW Std Deviation 46.0 H, RDW Coeff of Brad 14.3, Plt Count 120 L, MPV 12.0, Immature Gran % (Auto) 0.200, Neut % (Auto) 58.6, Lymph % (Auto) 28.4, [place] % (Auto) 7.4, Eos % (Auto) 4.2, Baso % (Auto) 1.2 H, Absolute Neuts (auto) 2.4, Absolute Lymphs (auto) 1.15, Nucleated RBC % 0 01/26/20 16:23: PT 13.2, INR 1.1, APTT 31.2 01/26/20 16:23: Sodium 139, Potassium 4.3, Chloride 106, Carbon Dioxide 30.0, Anion Gap 3 L, BUN 21 H, Creatinine 0.96, Estim Creat Clear Calc 83.87, Est GFR (MDRD) Af Amer 104, Est GFR (MDRD) Non-Af 86, BUN/Creatinine Ratio 22.0 H, Glucose 85, Calcium 8.6, Troponin I < 0.015 01/26/20 16:35: POC Glucose [address] 01/26/20 16:34 IMPRESSION: 1. Normal CT brain. Electronically Signed: Alfred Lua, at 18:15 EST Tel , Service support , Chest X-Ray 01/26/20 16:34 IMPRESSION: No acute pulmonary process Electronically Signed: Hai Johns MD at 17:14 EST , Service support , Head/Neck CTA 01/26/20 17:50 IMPRESSION: Normal CTA Head and neck with contrast. Electronically Signed: Alfred Lua at 18:27 EST Tel , Service support , Current Medications Sodium Chloride () 1,000 mls @ 100 mls/hr IV .Q10H ONE Stop: 01/27/20 02:33 Last Admin: 01/26/20 16:43 Dose: 100 mls/hr Documented by: Assessment/Plan All Active Problems CVA (cerebral vascular accident) (Acute) Alcohol withdrawal (Acute) Opiate withdrawal (Acute) 60-year-old admitted with a complaint of left-sided weakness. #Left sided weakness due to probable stroke * Mid to PCU with telemetry * CT of the brain was negative. CT of the head and neck was also unremarkable. * Consult PT OT. Fall precautions. * Start p.o. aspirin 81 mg daily and high intensity statin. * For MRI of the brain tomorrow. Check A1c and lipid panel. * For neurology consult once MRI is received. * #Depression: On Effexor #Nicotine dependence: Counseled to quit. Nicotine patch. #BPH: On tamsulosin DVT prophylaxis: SCDs CODE STATUS:
[2020-01-26 20:37] LABS: Hemoglobin A1c 5.2 % (3.8-5.6)
[2020-01-26] MEDS: Atorvastatin Calcium 80 MG Tablet PO (22:48)
[2020-01-27 03:00] VITALS: PULSE 65
[2020-01-27 03:45] VITALS: BP 134/85; PULSE 65; RESP 16; TEMP 36.3; O2SAT 98
[2020-01-27 06:20] LABS: Absolute Lymphocyte Count 1.16 X10^3/uL (0.83-4.51); Absolute Neutrophil Count 2.1 X10^3/uL (2.0-7.7); Basophil# 0.04 X10^3/uL; Eosinophil# 0.21 X10^3/uL; Eosinophils% 5.4 % (0-5); Hematocrit 43.1 % (40-54); Hemoglobin 13.7 g/dL (13.0-16.5); Lymphocyte # 1.16 X10^3/ul (4.0); Lymphocyte % 29.9 % (19-41); Mean Corp Hgb Conc 31.8 g/dL (32-36); Mean Corpuscular Hgb 28.1 pg (27.0-32.0); Mean Corpuscular Volume 88.5 fL (80-94); Mean Platelet Vol. 12.2 fl (6.2-12.0); Monocyte# 0.35 X10^3/uL; NRBC Flagged by Analyzer 0 % (0-5); Neutrophil # 2.11 X10^3/uL (2.7-7.7); Neutrophil % 54.4 % (47-70); POSITIVE COUNT YES; Platelet Count 90 K/mm3 (150-450); RBC Distribution Width CV 14.4 % (11.6-14.6); RBC Distribution Width SD 46.5 fl (35.1-43.9); Red Blood Count 4.87 M/mm3 (4.6-6.2); White Blood Count 3.9 K/mm3 (4.4-11.0)
[2020-01-27 06:50] LABS: Anion Gap 3 (5-15); BUN 19 mg/dL (7-18); BUN/Creat Ratio 22.2 RATIO (10-20); Calcium,Total 8.2 mg/dL (8.5-10.1); Chloride 110 mmol/L (98-107); Cholesterol 147 mg/dL (200); Creatinine, Serum 0.86 mg/dL (0.70-1.30); EST Glomerular Filtration Rate 98 mL/min (>60); Est Glom Filt Rate - Afr Amer 118 mL/min (>60); Estimated Creatinine Clearance 93.63 ml/min; Glucose 88 mg/dL (74-106); High Density Lipoprotein 51 mg/dL; Potassium 4.2 mmol/L (3.5-5.1); Sodium Level 141 mmol/L (136-145); Triglycerides 55 mg/dL; Very Low Density Lipoprotein 11 mg/dL (5-40)
[2020-01-27 06:58] VITALS: O2SAT 97
[2020-01-27 07:00] VITALS: PULSE 59
[2020-01-27 07:45] VITALS: BP 142/89; PULSE 57; RESP 18; TEMP 36.3; O2SAT 98
--- NOTE | 2020-01-27 08:00 | MRI_ITS ---
We are attempting to reach an attending provider to discuss findings. An addendum with communication details will be sent when the communication is complete. STUDY: MRI BRAIN WITHOUT CONTRAST REASON FOR EXAM: Male, 60 years old. LEFT weakness and numbness, vertigo TECHNIQUE: Standardized multiplanar fat and water weighted pulse sequences were obtained. COMPARISON: CT 01/26/2020 FINDINGS: Normal size of the ventricles and extra-axial spaces for the patient''s age. 2 cm linear hyperintensity of the periventricular white matter of the right parietal lobe and posterior limb of the right internal capsule demonstrates restricted diffusion consistent with an acute/subacute infarct. Normal T2* images of the brain without demonstrated susceptibility artifact. There is no demonstrated hemosiderin stain. Normal bilateral basal ganglia. Normal thalami. There is no extra-axial fluid accumulation. Normal flow voids within the major intracranial circulation suggesting patency by spin echo criteria. Normal sella turcica, pituitary gland, infundibular stalk, optic chiasm and hypothalamus. Normal tectal plate and pineal gland. Normal midbrain, terra and medulla. Normal cerebellum. Normal basal cisterns. Normal bilateral temporal bones. Normal bilateral internal auditory canals. No demonstrated orbital abnormality, within the constraints of a routine brain study. Mucosal thickening and mucous retention cyst in the right x-ray sinus consistent with chronic sinusitis. Normal calvarium and skull base. Normal visualized soft tissue structures. Normal visualized upper cervical spine. MRI/Brain without Contrast IMPRESSION: Acute/subacute the infarct of the posterior limb of the periventricular white matter of the right parietal lobe. Electronically Signed: Scooby Gtz MD at 9:36 EST Tel , Service support ,
--- NOTE | 2020-01-27 08:00 | ECHOD_ITS ---
Reason For Study: TIA/CVA Procedure This was a 2D Doppler, Color Flow transthoracic echocardiogram. Contrast injection was performed. Exam performed portable in patient room. Left Ventricle Normal LV size. Left ventricular systolic function is normal. The estimated ejection fraction is 60 %. Diastolic function is indeterminate. No regional wall motion abnormalities noted. Right Ventricle Normal RV size. Normal systolic function. Atria The left atrium is mildly enlarged. The right atrium is mildly enlarged. No doppler evidence for ASD. Bubble contrast study negative for right to left interatrial shunt. Mitral Valve There is no mitral annular calcification. Mild diffuse mitral valve thickening. Mild mitral valve prolapse, posterior leaflet. Mild (1+) mitral valve insufficiency. Tricuspid Valve Normal tricuspid valve. Mild tricuspid valve insufficiency. Right ventricular systolic pressure estimated to be 37 mmHg. Aortic Valve Bicuspid aortic valve. Mild diffuse aortic valve thickening. Mild focal aortic valve calcification. Aortic valve sclerosis/mild aortic stenosis. Pulmonic Valve The pulmonic valve is not well visualized. Great Vessels Borderline enlarged aortic root. Pericardium/Pleural No pericardial effusion. Medication Performed a rapid injection of agitated mix of 9 cc saline and 1cc air to assess for atrial septal defect. MMode/2D Measurements & Calculations LVIDd: 4.8 cm IVSd: 1.4 cm LVOT diam: 2.0 cm LVIDs: 2.7 cm LVPWd: 1.2 cm RVDd: 4.1 cm FS: 44.9 % LVOT area: 3.1 cm2 Ao root diam: 3.9 cm LAV(MOD-bp): 74.9 ml Aortic Valve Planimetry: 3.9 cm2 LA dimension: 3.9 cm LAV(MOD-bp) Indexed: 36.6 ml/m2 LAV(MOD-sp2): 78.9 ml LAV(MOD-sp4): 68.7 ml LA A4 area: 23.1 cm2 RA A4 area: 20.4 cm2 Time Measurements MV dec time: 0.22 sec Doppler Measurements & Calculations MV E max jay: 58.9 cm/sec Lat Peak E' Jay: 8.8 cm/sec Med Peak E' Jay: 6.1 cm/sec MV A max jay: 71.2 cm/sec E/E' lat: 6.7 E/E' med: 9.7 MV E/A: 0.83 MV V2 max: 66.8 cm/sec MV P1/2t max jay: 64.5 cm/sec Ao V2 max: 166.1 cm/sec MV max P.8 mmHg MV P1/2t: 78.3 msec Ao max P.0 mmHg MV V2 mean: 34.9 cm/sec MV dec slope: 241.4 cm/sec2 Ao V2 mean: 115.1 cm/sec MV mean P.57 mmHg Ao mean P.9 mmHg MV V2 VTI: 24.0 cm MVA(P1/2t): 2.8 cm2 Ao V2 VTI: 33.6 cm MVA(VTI): 2.4 cm2 ANGEL(I,D): 1.7 cm2 ANGEL(V,D): 1.4 cm2 LV V1 max: 76.3 cm/sec SV(LVOT): 58.4 ml PA V2 max: 90.5 cm/sec LV V1 max P.3 mmHg LV V1 mean P.1 mmHg LV V1 mean: 49.3 cm/sec LV V1 VTI: 18.8 cm TR max jay: 258.6 cm/sec TR max P.8 mmHg Interpretation Summary Contrast injection was performed. Left ventricular systolic function is normal. The estimated ejection fraction is 60 %. The left atrium is mildly enlarged. The right atrium is mildly enlarged. Mild diffuse mitral valve thickening. Mild mitral valve prolapse, posterior leaflet Mild (1+) mitral valve insufficiency. Mild tricuspid valve insufficiency. Bicuspid aortic valve. Aortic valve sclerosis/mild aortic stenosis. Borderline enlarged aortic root. Right ventricular systolic pressure estimated to be 37 mmHg. Diastolic function is indeterminate. Bubble contrast study negative for right to left interatrial shunt. Ordering Physician: Caren Metcalf Referring Physician: Demetrio Martin M.D. Performed By: Saw James RCS
[2020-01-27] MEDS: Tamsulosin HCl 0.4 MG Capsule 0.8 MG PO (08:16)
[2020-01-27] MEDS: Aspirin 81 MG TAB.CHEW PO (08:16)
[2020-01-27] MEDS: Venlafaxine XR 75 MG Capsule PO (08:16)
[2020-01-27] MEDS: Gabapentin 800 MG Tablet PO ×2 (08:16→11:43)
[2020-01-27 11:36] VITALS: BP 127/74; PULSE 67; RESP 16; TEMP 36.4; O2SAT 97
[2020-01-27] MEDS: Clopidogrel Bisulfate 75 MG Tablet PO (11:43)
[2020-01-27] MEDS: Atorvastatin Calcium 20 MG Tablet PO (11:44)
--- NOTE | 2020-01-27 14:14 | CASEMGMT ---
Pt provided with OP script for PT/OT at discharge. Braeden POLO CM
--- NOTE | 2020-01-27 14:21 | DCINST_ITS ---
- Discharge Diagnoses Current Active Problems: Current Active and Chronic Problems CVA (cerebral vascular accident) (Acute) Restless leg syndrome (Chronic) Depression (Chronic) You will use the following diet at home:: No restrictions Your food should be the consistency of: Regular Your liquids should be the consistency of: Regular/Thin Discharge Activity: Return to Normal Activity Weight Bearing Status: Full weight bearing Additional Instructions: AVOID TAKING ALLEVE OR ADVIL FOR PAIN, TYLENOL IS OKAY TO TAKE Allergies/Adverse Reactions: Allergies oxycodone Allergy (Unknown, Verified 12/17/19 11:43) Unknown meloxicam Allergy (Verified 12/17/19 11:43) Hives Medications to take at Discharge Gabapentin [Neurontin] 800 mg PO TIDCM 07/31/17 Venlafaxine HCl [Effexor Xr] 75 mg PO DAILY 07/31/17 Nicotine Polacrilex [Nicotine Lozenge] 4 mg BC Q2H PRN PRN 02/27/19 Tamsulosin HCl [Flomax] 0.8 mg PO DAILY 02/27/19 Nicotine [Nicoderm Cq] 21 mg TRANSDERM. DAILY 01/26/20 Aspirin [Aspirin, Baby] 81 mg PO DAILY@0800 tab.chew 01/27/20 Clopidogrel Bisulfate [Plavix] 75 mg PO DAILY #30 tab 01/27/20 Rosuvastatin Calcium [Crestor] 20 mg PO DAILY #30 tab 01/27/20 The following prescriptions were given: Rosuvastatin Calcium [Crestor] 20 mg PO DAILY #30 tab Transmission Status: Pending to [facility] [id number] Clopidogrel Bisulfate [Plavix] 75 mg PO DAILY #30 tab Transmission Status: Pending to [facility] [id number] Primary Care Physician: Demetrio Martin MD [Primary Care Provider] - Please follow up with your Primary Care Physician in: IN 3 WEEKS Test Results: Test results from this visit will be discussed in further detail at your follow- up appointment, if applicable.
--- NOTE | 2020-01-27 14:36 | DS.PCM_ITS ---
Discharge Date and Diagnosis - Problem List Patient Problems: Active and Suspected Problems CVA (cerebral vascular accident) (Acute) Date of Admission: 01/26/20 Date of Discharge: 01/27/20 - Primary Discharge Diagnosis Acute Problems: Active Problems #1 acute ischemic stroke in the posterior limb of the periventricular white matter of the right parietal lobe #2 benign prostatic hypertrophy #3 chronic depression #4 restless leg syndrome - Secondary Discharge Diagnosis Chronic Problems: Chronic Problems Polysubstance abuse (Chronic) Heroin addiction (Chronic) Restless leg syndrome (Chronic) Depression (Chronic) History of alcohol abuse (Chronic) Tobacco abuse (Chronic) History of MRSA infection (Chronic) Hospital Course and Treatment Imaging Results: 01/27/20 08:00 Echo Complete [ECHO] Routine Brain without Contrast [MRI] Routine Operations: None Procedures: 2-D Echocardiogram Summary of Care Provided: The patient is a 60 year old M was seen in the emergency room at [facility] with a chief complaint of left-sided weakness x48 hours. Patient also complained that he felt uncoordinated and weak on the left side. Work-up in the emergency room included a CT scan of the brain which was unremarkable, patient's labs were unremarkable. Patient was placed in observation status on PCU, he underwent an MRI of the brain which showed an acute infarct in the right parietal lobe. Patient was seen by PT and OT, he was given aspirin and Plavix and placed on Lipitor during his hospitalization. Patient did well with physical therapy and physical therapy recommended as needed physical therapy at the patient's discretion. Patient was living in a alf house where he is undergoing detox treatment for alcohol and substance abuse. On 01/27/2020, patient was seen and examined: On examination he appeared in good health and spirits. Vital signs as documented. Skin warm and dry and without overt rashes. Neck without JVD, neck was supple, trachea midline, thyroid was normal. Lungs clear bilaterally, normal air movement was noted. Heart exam notable for regular rhythm, normal sounds and absence of murmurs, rubs or gallops. Abdomen unremarkable and without evidence of organomegaly, masses, or abdominal aortic enlargement. Bowel sounds are present, abdomen is not distended. Extremities nonedematous, no cyanosis was noted, no clubbing was noted. Neuro: Cranial nerves II through XII are grossly intact, slight weakness was noted in the patient's left side, sensation to light touch and pinprick intact. Psych: Patient is alert and oriented x3, he does not appear anxious or depressed, he does not appear agitated. Patient was discharged on 01/27/2020 in stable condition, he was advised to quit smoking, he was not given a high dose of Crestor at discharge due to the fact that he had stopped a statin (Zocor) in the past due to muscle weakness and malaise with the medication. I talked to the patient and told him that he must take another statin and I sent a prescription for Crestor for the patient. Patient is also to take aspirin and Plavix for the next month, he has been instructed to follow-up with his PCP regarding the need for continuing both medications or dropping either the aspirin or Plavix after 21 days. Patient Problems: Active and Suspected Problems CVA (cerebral vascular accident) (Acute) - Physical Exam Vitals/I&O's: Vital Signs Temp Pulse Resp BP Pulse Ox 97.6 F L 67 16 127/74 H 97 01/27/20 11:36 01/27/20 11:36 01/27/20 11:36 01/27/20 11:36 01/27/20 11:36 Oxygen Delivery Method Room Air Weight: 89.1 kg Body Mass Index (BMI) 29.0 Finger Stick Blood Glucose 80 Intake and Output for Last 24 Hours 01/25/20 01/26/20 01/27/20 23:59 23:59 23:59 Intake Total 295 / 535 720 / 720 Balance 295 / 535 720 / 720 Laboratory Results 01/26/20 16:23: WBC 4.1 L, RBC 5.21, Hgb 15.0, Hct 45.9, MCV 88.1, MCH 28.8, MCHC 32.7, RDW Std Deviation 46.0 H, RDW Coeff of Brad 14.3, Plt Count 120 L, MPV 12.0, Immature Gran % (Auto) 0.200, Neut % (Auto) 58.6, Lymph % (Auto) 28.4, [place] % (Auto) 7.4, Eos % (Auto) 4.2, Baso % (Auto) 1.2 H, Absolute Neuts (auto) 2.4, Absolute Lymphs (auto) 1.15, Nucleated RBC % 0 01/26/20 16:23: PT 13.2, INR 1.1, APTT 31.2 01/26/20 16:23: Sodium 139, Potassium 4.3, Chloride 106, Carbon Dioxide 30.0, Anion Gap 3 L, BUN 21 H, Creatinine 0.96, Estim Creat Clear Calc 83.87, Est GFR (MDRD) Af Amer 104, Est GFR (MDRD) Non-Af 86, BUN/Creatinine Ratio 22.0 H, Glucose 85, Calcium 8.6, Troponin I < 0.015 01/26/20 16:23: Hemoglobin A1c 5.2 01/26/20 16:35: POC Glucose 80 01/27/20 05:48: WBC 3.9 L, RBC 4.87, Hgb 13.7, Hct 43.1, MCV 88.5, MCH 28.1, MCHC 31.8 L, RDW Std Deviation 46.5 H, RDW Coeff of Brad 14.4, Plt Count 90 L, MPV 12.2 H, Immature Gran % (Auto) 0.300, Neut % (Auto) 54.4, Lymph % (Auto) 29.9, [place] % (Auto) 9.0, Eos % (Auto) 5.4 H, Baso % (Auto) 1.0, Absolute Neuts (auto) 2.1, Absolute Lymphs (auto) 1.16, Nucleated RBC % 0 01/27/20 05:48: Sodium 141, Potassium 4.2, Chloride 110 H, Carbon Dioxide 28.0, Anion Gap 3 L, BUN 19 H, Creatinine 0.86, Estim Creat Clear Calc 93.63, Est GFR (MDRD) Af Amer 118, Est GFR (MDRD) Non-Af 98, BUN/Creatinine Ratio 22.2 H, Glucose 88, Calcium 8.2 L, Triglycerides 55, Cholesterol 147, LDL Cholesterol 85, VLDL Cholesterol 11, HDL Cholesterol 51 Current Medications Aspirin (Aspirin 81 Mg Tab.Chew) 81 mg PO DAILY@0800 [facility] Last Admin: 01/27/20 08:16 Dose: 81 mg Documented by: Clopidogrel Bisulfate (Clopidogrel Bisulfate 75 Mg Tablet) 75 mg PO DAILY [facility] Gabapentin (Gabapentin 800 Mg Tablet) 800 mg PO TIDCM [facility] Last Admin: 01/27/20 11:43 Dose: 800 mg Documented by: Labetalol HCl (Labetalol (Prefilled) 20 Mg/4 Ml) 10 - 20 mg IV Q10M PRN PRN PRN Reason: to Maintain BP Goals Naproxen (Naproxen 500 Mg Tablet) 500 mg PO BID PRN PRN PRN Reason: Pain 1-10 or Fever Nicotine (Nicotine 21 Mg Patch) 21 mg TRANSDERM. DAILY [facility] Last Admin: 01/27/20 11:44 Dose: 21 mg Documented by: Nicotine Polacrilex (Nicotine Polacrilex 4 Mg Gum) 4 mg PO Q2H PRN PRN PRN Reason: SMOKING CESSATION Last Admin: 01/27/20 11:46 Dose: 4 mg Documented by: Nitroglycerin (Nitroglycerin (Inpatient Use) 0.4 Mg Tab.Subl) 0.4 mg SUBLINGUAL Q5M PRN PRN Reason: CARDIAC/CHEST PAIN Ondansetron HCl (Ondansetron 4 Mg/2 Ml Vial) 4 mg IV Q8H PRN PRN PRN Reason: NAUSEA/VOMITING Sodium Chloride (0.9% Saline Lock 10 Ml Syringe) 10 - 40 ml IV UD PRN PRN Reason: SALINE FLUSH Tamsulosin HCl (Tamsulosin Hcl 0.4 Mg Capsule) 0.8 mg PO DAILY [facility] Last Admin: 01/27/20 08:16 Dose: 0.8 mg Documented by: Venlafaxine HCl (Venlafaxine Xr 75 Mg Capsule) 75 mg PO DAILY [facility] Last Admin: 01/27/20 08:16 Dose: 75 mg Documented by: Discharge Activity: Return to Normal Activity Weight Bearing Status: Full weight bearing Home Medications: Medications to take at Discharge Gabapentin [Neurontin] 800 mg PO TIDCM 07/31/17 Venlafaxine HCl [Effexor Xr] 75 mg PO DAILY 07/31/17 Nicotine Polacrilex [Nicotine Lozenge] 4 mg BC Q2H PRN PRN 02/27/19 Tamsulosin HCl [Flomax] 0.8 mg PO DAILY 02/27/19 Nicotine [Nicoderm Cq] 21 mg TRANSDERM. DAILY 01/26/20 Aspirin [Aspirin, Baby] 81 mg PO DAILY@0800 tab.chew 01/27/20 Clopidogrel Bisulfate [Plavix] 75 mg PO DAILY #30 tab 01/27/20 Rosuvastatin Calcium [Crestor] 20 mg PO DAILY #30 tab 01/27/20 Following Prescriptions Were Given to Patient: Rosuvastatin Calcium [Crestor] 20 mg PO DAILY #30 tab Transmission Status: Received by [facility] [id number] Clopidogrel Bisulfate [Plavix] 75 mg PO DAILY #30 tab Transmission Status: Received by [facility] [address] Primary Care Physician: Demetrio Martin MD [Primary Care Provider] - Please follow up with your Primary Care Physician in: IN 3 WEEKS Disposition: Home Minutes spent on discharge:: 30 Patient Condition:: Stable Medical Necessity - Tobacco Use Smoking Status: Current every day smoker Tobacco Use: Cigarettes, Vapor Meaningful Use Info Meaningful Use Diagnoses (Choose all that apply): Ischemic CVA - CVA Therapy Assessed for PT,OT and/or ST?: Yes - Ischemic Stroke Antithrombotic order at d/c?: Yes Dx of Atrial fib/flutter?: No Anticoagulant at discharge?: No Reason anticoagulant not ordered: Treatment not Indicated Statins at discharge?: Yes Primary Dx Acute Ischemic CVA?: Yes IV tPA ordered during stay?: No Reason IV t-PA not ordered: Treatment not Indicated OBSV E&M: 26016 Observation care discharge
== END 2020-01-27 14:23 | disposition home or self-care (01) ==
LOC: ED 18:47 → PCU 19:05
PROVIDERS: Admitting Provider Student in an Organized Health Care Education/Training Program; Emergency Provider Emergency Medicine; PCP Internal Medicine; Referring Provider Student in an Organized Health Care Education/Training Program; Visit Provider Internal Medicine
DX: I63.9 Cerebral infarction, unspecified (principal); N40.0 Benign prostatic hyperplasia without lower urinary tract symptoms; F32.9 Major depressive disorder, single episode, unspecified; G25.81 Restless legs syndrome; Z79.899 Other long term (current) drug therapy; R53.1 Weakness; Z86.14 Personal history of Methicillin resistant Staphylococcus aureus infection; F17.210 Nicotine dependence, cigarettes, uncomplicated; F11.20 Opioid dependence, uncomplicated; F10.11 Alcohol abuse, in remission
CPT/HCPCS: 36415; 70450; 70496; 70498; 70551; 71045; 80048; 80061; 82962; 83036; 84484; 85025; 85610; 85730; 93005; 93306; 94762; 96360; 96361; 97162; 97166; 99218; 99285; 99406; J7030; Q9967; A4216; G0378

== ENCOUNTER 2020-12-09 14:12 | Emergency (ER) | payer MEDICAID, SELFPAY ==
[2020-12-09 14:12] VITALS: PULSE 81; RESP 16; TEMP 36.5; O2SAT 97; BMI 30.2
[2020-12-09 14:15] VITALS: BP 129/91; PULSE 81; RESP 16; TEMP 36.5; O2SAT 97
[2020-12-09 14:16] VITALS: BP 129/91
--- NOTE | 2020-12-09 15:04 | EDS_ITS ---
HPI History of Present Illness Chief Complaint: Abscess Detail of Chief Complaint: Abscess to mid back that has had for about 2 weeks Informant: patient Narrative Narrative: Patient states that he was at urgent care about a week and a half ago and started on Bactrim. Patient felt like his abscess was improving but then started missing some doses due to the fact that he was at work and the abscess never completely resolved. He denies any fevers or chills or sweats. He does have history of MRSA. Patient states that he has seen Dr. Casillas in the past as he had required incision and drainage of prior abscesses. Prior similar symptoms: Yes PFSH PFSH Home Medications gabapentin 800 mg PO TIDCM 07/31/17 [History Last Taken 01/26/20 08:30] venlafaxine [Effexor XR] 75 mg PO DAILY 07/31/17 [History Last Taken 01/26/20 08:30] nicotine (polacrilex) 4 mg BC Q2H PRN PRN 02/27/19 [History Last Taken 01/26/20 16:30] tamsulosin 0.8 mg PO DAILY 02/27/19 [History Last Taken 01/26/20 08:30] nicotine 21 mg TRANSDERM. DAILY 01/26/20 [History Last Taken 01/26/20] aspirin 81 mg PO DAILY@0800 tab.chew 01/27/20 [Rx Last Taken Unknown] clopidogrel 75 mg PO DAILY #30 tab 01/27/20 [Rx Last Taken Unknown] rosuvastatin 20 mg PO DAILY #30 tab 01/27/20 [Rx Last Taken Unknown] cephalexin 500 mg PO Q6 #40 capsule 12/09/20 [Rx Last Taken Unknown] sulfamethoxazole-trimethoprim 1 tab PO BID #14 tablet 12/09/20 [Rx Last Taken Unknown] Allergy/AdvReac Type Severity Reaction Status Date / Time oxycodone Allergy Unknown Unknown Verified 12/09/20 14:16 meloxicam Allergy Hives Verified 12/09/20 14:16 Social History Smoking Status: Current every day smoker tobacco type: cigarettes ROS ROS ED Constitutional Constitutional ED: Reports systems reviewed and no addt'l complaints, except as documented; Denies body ache(s), change in weight or chills Eyes Eyes: Denies acute decrease in peripheral vision, change in vision, double vision or loss of vision ENT ENT ED: Reports none; Denies ear pain, lip swelling, loss taste/smell, neck pain, otalgia or sore throat Cardiovascular Cardiovascular: Reports none; Denies abdominal pain, chest pain with activity, leg edema, lightheadedness, palpitations, rapid heart rate or syncope Respiratory/Chest Respiratory/Chest: Reports none; Denies change in mental status, dry cough, dyspnea, hemoptysis, shortness of breath at rest or shortness of breath with exertion Gastrointestinal Gastrointestinal: Reports none; Denies abdominal pain, change in stool character, diarrhea, hematemesis, hematochezia, melena, rectal bleeding or vomiting Genitourinary Genitourinary ED: Reports none; Denies abdominal discomfort, anuria, dysuria, genital pain or polyuria Musculoskeletal Musculoskeletal: Reports none; Denies arthralgias, back pain, difficulty walking, extremity pain, muscle weakness or myalgias Integumentary Reports none, abscess and other Details: Abscess to mid back ; Denies rash Neurologic Neurologic: Reports none; Denies abnormal gait, confusion, focal weakness, freq uent falls, headache(s), loss of vision, numbness, paresthesias, radicular pain, vertigo or weakness Psychiatric Psychiatric: Reports systems reviewed and no addt'l complaints, except as documented and none; Denies behavioral changes, confusion, difficulty concentrating, hallucinations, suicidal ideation, tactile hallucinations or visual hallucinations Endocrine Endocrinology: Denies none, cold intolerance, excessive sweating, fatigue or heat intolerance Hematologic/Lymphatic Hematologic/Lymphatic: Reports none; Denies anemia, easy bleeding or easy bruising Allergic/Immunologic Allergic/Immunologic ED: Denies as per HPI, none, lip swelling, mouth swelling, throat swelling, tongue swelling or hives EXAM Physical Exam Const Vital Signs: 12/09/20 14:12 12/09/20 14:15 12/09/20 14:16 Temperature 97.7 F L 97.7 F L Temperature Source Temporal Temporal Pulse Rate 81 81 Respiratory Rate 16 16 Blood Pressure 129/91 H 129/91 H Blood Pressure Mean 103 103 Pulse Ox 97 97 Oxygen Delivery Method Room Air Room Air Positive well nourished and well developed General Appearance ED: well developed and NAD HEENT Reports TM's clear and moist mucous membranes normocephalic and atraumatic; Negative for trauma or tenderness Tympanic Membrane ED: Yes TM's clear Eyes PERRL and EOMs intact bilaterally General Eye ED: Negative for pale conjunctiva or scleral icterus Neck no lymphadenopathy, supple and no JVD General: Negative for tenderness Chest Wall inspection of chest normal and palpation of chest normal Chest: Negative for tenderness Resp normal respiratory effort and clear to auscultation bilaterally Effort and Inspection: Negative for respiratory distress or pain with movement Auscultation: Negative for rhonchi, wheezes or diminished lung sounds Cardio regular rate, regular rhythm, S1 normal heart sound, S2 normal heart sound and no murmurs Peripheral Pulses: pulses 2+ throughout GI normal to inspection, nondistended, normoactive bowel sounds, soft to palpation, non-tender, non-distended and no masses Back/Spine no CVA tenderness and no thoracic nor lumbar tenderness Extremity normal to inspection General Extremety ED: Negative for edema General Extremity: Negative for edema Neuro oriented x3, CN's II-XII intact bilaterally, no sensory deficits noted and gait normal Sensorium / Orientation: awake, alert, oriented to person, oriented to place and oriented to time Motor Exam: strength 5/5 throughout and strength abnormal Psych mental status grossly normal Skin no rashes or lesions noted and no wounds Skin Narrative: Patient has an infected sebaceous cyst mid thoracic. There is fluctuance. There is excoriation. Mild surrounding erythema. MDM MDM MDM Narrative Medical decision making narrative: Patient was offered incision and drainage of suspected infected sebaceous cyst which she agreed. Area cleansed with Shur- Clens and anesthetized locally with 1% lidocaine total of 8 cc. Using an 11 blade a 2.5 cm incision was made in the most fluctuant portion of the suspected abscess and large amount of free-flowing purulent debris was expressed. I used curved hemostats to undermine subcutaneous tissues and irrigated the cavity with saline. Clean dressing was applied. Discharge Plan Triage Chief Complaint: Abscess ED Provider: Baron Lopez Dx/Rx/DC Orders Clinical Impression: Infected sebaceous cyst Instructions: ED Abscess Incision And Drainage Prescriptions: New sulfamethoxazole-trimethoprim [sulfamethoxazole-trimethoprim] 1 TABLET tablet 1 tab PO BID Qty: 14 RF: 0 cephalexin [cephalexin] 500 MG capsule 500 mg PO Q6 Qty: 40 RF: 0 No Action venlafaxine [Effexor XR] 75 MG capsule,extended release 24hr 75 mg PO DAILY RF: 0 gabapentin 600 MG tablet 800 mg PO TIDCM RF: 0 tamsulosin 0.4 MG capsule 0.8 mg PO DAILY RF: 0 nicotine (polacrilex) 4 MG lozenge 4 mg BC Q2H PRN PRN (Reason: Smoking Cessation) RF: 0 nicotine 21 MG patch 21 mg TRANSDERM. DAILY RF: 0 clopidogrel 75 MG tablet 75 mg PO DAILY Qty: 30 RF: 0 aspirin 81 MG tablet,chewable 81 mg PO DAILY@0800 RF: 0 rosuvastatin 20 MG tablet 20 mg PO DAILY Qty: 30 RF: 0 Primary Care Provider: Demetrio Martin Referrals: Gordy Lara MD [STAFF PHYSICIAN] - 3-5 Days Demetrio Martin MD [Primary Care Provider] - Disposition Disposition: Home, Self Care
[2020-12-09] MEDS: Lidocaine 1% (20 ml mdv) 20 ML Vial 10 ML INFILT (15:05)
== END 2020-12-09 16:42 | disposition home or self-care (01) ==
PROVIDERS: Emergency Provider Emergency Medicine; PCP Internal Medicine
DX: L72.3 Sebaceous cyst (principal); L02.212 Cutaneous abscess of back [any part, except buttock and flank]; Z86.14 Personal history of Methicillin resistant Staphylococcus aureus infection; F17.210 Nicotine dependence, cigarettes, uncomplicated
CPT/HCPCS: 10060; 99283

== ENCOUNTER 2021-12-15 15:33 | Emergency (ER) | payer MEDICAID, SELFPAY ==
[2021-12-15 15:33] VITALS: BP 135/102; PULSE 73; RESP 16; TEMP 36.5; O2SAT 97; BMI 31.0
--- NOTE | 2021-12-15 17:20 | EX.ED.GENINJ ---
HPI History of Present Illness Chief Complaint: Bite Narrative Narrative: 61-year-old male presenting with 2 walker on his right wrist. He states he woke up and was making coffee this morning noticed some new. He states he is concerned it might have been a bat bite. He states he has not even seen a bat. He has been remodeling his house. He is unsure if he could have scratched his wrist on anything else. He is not seeing any other animals that could have bit him. He is not having any symptoms. He states that the walker do not hurt. Patient was immunized for rabies previously in 2008 when a bat twisted up in his fishing line and he tried to remove it and the bat bit him. He states that the bat was sent for pathology and was negative for rabies so he did not finish his vaccines. [facility] Medical History no medical history Home Medications gabapentin 600 mg tablet 800 mg PO TIDCM pain 07/31/17 [History Last Taken 01/26/20 08:30] venlafaxine 75 mg capsule,extended release 24 hr (Effexor XR) 75 mg PO DAILY depression 07/31/17 [History Last Taken 01/26/20 08:30] nicotine (polacrilex) 4 mg buccal lozenge 4 mg BC Q2H PRN PRN Smoking Cessation 02/27/19 [History Last Taken 01/26/20 16:30] tamsulosin 0.4 mg capsule 0.8 mg PO DAILY PROSTATE 02/27/19 [History Last Taken 01/26/20 08:30] nicotine 21 mg/24 hr daily transdermal patch 21 mg TRANSDERM. DAILY 01/26/20 [History Last Taken 01/26/20] aspirin 81 mg chewable tablet 81 mg PO DAILY@0800 01/27/20 [Rx Last Taken Unknown] clopidogrel 75 mg tablet 75 mg PO DAILY #30 tabs 01/27/20 [Rx Last Taken Unknown] rosuvastatin 20 mg tablet 20 mg PO DAILY #30 tabs 01/27/20 [Rx Last Taken Unknown] cephalexin 500 mg capsule 500 mg PO Q6 #40 CAPSULES 12/09/20 [Rx Last Taken Unknown] sulfamethoxazole 800 mg-trimethoprim 160 mg tablet 1 tab PO BID #14 TABLETS 12/09/20 [Rx Last Taken Unknown] Allergy/AdvReac Type Severity Reaction Status Date / Time oxycodone Allergy Unknown Unknown Verified 12/15/21 15:35 meloxicam Allergy Hives Verified 12/15/21 15:35 Surgical History no surgical history Social History Smoking Status: Current every day smoker tobacco type: cigarettes ROS ROS ED Constitutional Constitutional ED: Denies chills or fever(s) Eyes Eyes: Denies blurry vision or change in vision ENT ENT ED: Denies rhinorrhea or sore throat Cardiovascular Cardiovascular: Denies chest pain or palpitations Respiratory/Chest Respiratory/Chest: Denies cough or dyspnea Gastrointestinal Gastrointestinal: Denies abdominal pain or constipation Genitourinary Genitourinary ED: Denies dysuria or hematuria Musculoskeletal Musculoskeletal: Denies arthralgias or back pain Integumentary Reports Abrasions; Denies abscess Neurologic Neurologic: Denies headache(s) or paresthesias Psychiatric Psychiatric: Denies anxiety or depression EXAM Physical Exam Const Vital Signs: 12/15/21 15:33 Temperature 97.7 F L Temperature Source Temporal Pulse Rate 73 Respiratory Rate 16 Blood Pressure 135/102 H Blood Pressure Mean 113 Pulse Ox 97 Oxygen Delivery Method Room Air Positive well nourished General Appearance ED: NAD HEENT atraumatic Eyes PERRL and EOMs intact bilaterally Resp normal respiratory effort Cardio regular rhythm Rate: regular rate Extremity normal to inspection and full ROM Neuro oriented x3 and CN's II-XII intact bilaterally Skin Skin Narrative: 2 punctate wounds on the dorsum of the right wrist. These are both less than a millimeter. They are about a half a centimeter apart. No pain, no crepitance, no bruising MDM MDM MDM Narrative Medical decision making narrative: She presents with 2 cm punctate wounds to the right wrist. He is concerned it was a bat. He states he has not seen a bat. He states he was in his home all night. He has been remodeling. He states he has been immunized for rabies in the past. He request to have rabies vaccine again. This will be provided. I have a low suspicion this was a bat bite however. This was discussed with him. Impression: 1. Superficial abrasions to right wrist 2. Rabies vaccine Lab Data Attestation: I reviewed the patient's lab results. Discharge Plan Triage Chief Complaint: Bite ED Provider: Jeovany Dahl Dx/Rx/DC Orders Prescriptions: No Action venlafaxine [Effexor XR] 75 MG capsule,extended release 24hr 75 mg PO DAILY gabapentin 600 MG tablet 800 mg PO TIDCM tamsulosin 0.4 MG capsule 0.8 mg PO DAILY nicotine (polacrilex) 4 MG lozenge 4 mg BC Q2H PRN PRN (Reason: Smoking Cessation) nicotine 21 MG patch 21 mg TRANSDERM. DAILY clopidogrel 75 MG tablet 75 mg PO DAILY Qty: 30 0RF aspirin 81 MG tablet,chewable 81 mg PO DAILY@0800 0RF rosuvastatin 20 MG tablet 20 mg PO DAILY Qty: 30 0RF sulfamethoxazole-trimethoprim [sulfamethoxazole-trimethoprim] 1 TABLET tablet 1 tab PO BID Qty: 14 0RF cephalexin [cephalexin] 500 MG capsule 500 mg PO Q6 Qty: 40 0RF Primary Care Provider: Demetrio Martin Referrals: Demetrio Martin MD [Primary Care Provider] -
[2021-12-15] MEDS: Rabies Vaccine,Human Diploid 2.5 UNITS Vial IM (17:49)
== END 2021-12-15 18:34 | disposition home or self-care (01) ==
PROVIDERS: Emergency Provider Student in an Organized Health Care Education/Training Program; PCP Internal Medicine; Visit Provider Student in an Organized Health Care Education/Training Program
DX: S60.811A Abrasion of right wrist, initial encounter (principal); F17.210 Nicotine dependence, cigarettes, uncomplicated; Z23 Encounter for immunization; Z20.3 Contact with and (suspected) exposure to rabies
CPT/HCPCS: 90375 ×2; 90675; 96372; 99282

== ENCOUNTER 2021-12-18 10:31 | Outpatient (CLI) | payer MEDICAID, SELFPAY ==
[2021-12-18 10:33] VITALS: BP 150/90; PULSE 70; RESP 16; TEMP 36.8; O2SAT 98; BMI 31.0
[2021-12-18] MEDS: Rabies Vaccine,Human Diploid 2.5 UNITS Vial IM (10:56)
== END 2021-12-18 11:31 | disposition home or self-care (01) ==
PROVIDERS: PCP Internal Medicine; Visit Provider Emergency Medicine
DX: Z23 Encounter for immunization (principal)
CPT/HCPCS: 90675; 96372

== ENCOUNTER → 2023-08-14 | Outpatient (CLI) | payer MEDICAID, SELFPAY ==
--- NOTE | 2023-08-14 14:08 | RAD_ITS ---
INDICATION: THORACIC STRAIN EXAMINATION/TECHNIQUE: X-RAY - XR Spine Thoracic 3 Views COMPARISON: No relevant prior comparison study available FINDINGS: VERTEBRAE: Preserved vertebral body height. No fracture. No spondylolisthesis. Preservation of the normal thoracic kyphosis. No significant facet arthropathy. DISCS: Disc space narrowing throughout the thoracic spine with endplate osteophytes present.. INCLUDED CHEST/ABDOMEN: No acute abnormalities. RAD/Thoracic Spine 3 Views IMPRESSION: No evidence of thoracic spinal fracture or spondylolisthesis. Degenerative change throughout. Electronically Signed: Trino Chew MD at 14:43 EDT ,
--- NOTE | 2023-08-14 14:08 | RAD_ITS ---
INDICATION: LUMBAR SPRAIN EXAMINATION/TECHNIQUE: X-RAY - XR Spine Lumbar Min 4 Views COMPARISON: None. FINDINGS: VERTEBRAE: Vertebral body height is maintained. There is however degenerative grade 1 anterolisthesis of L4 and L5. Mild retrolisthesis of L3 on 4. Significant multilevel marginal osteophyte formation and endplate sclerosis at L1-2. No evidence of fractures or acute destructive bony process. Moderate to extensive facet arthrosis from L3 to S1. DISCS: Disc space narrowing at L1-2 with endplate sclerosis and marginal osteophyte formation. Additional marginal osteophytes are noted at all remaining levels. Grade 1 anterolisthesis and mild disc space narrowing L5-S1. No pars defects noted. INCLUDED ABDOMEN: Included bowel gas pattern is non-obstructive. RAD/L/S Spine Min 4 Views IMPRESSION: 1. Diffuse lumbar spondylosis, no acute fracture or acute destructive bony process. 2. Grade 1 anterolisthesis of L4 and L5, retrolisthesis of L3 on 4 and significant disc space narrowing and endplate sclerosis at L1-2. 3. Extensive facet arthropathy from L3 to S1. Electronically Signed: Scooby Dietrich MD at 19:48 EDT ,
== END | disposition home or self-care (01) ==
LOC: RAD 14:00
PROVIDERS: PCP Internal Medicine; Referring Provider Chiropractor; Visit Provider Chiropractor
DX: S33.5XXA Sprain of ligaments of lumbar spine, initial encounter (principal); S23.3XXA Sprain of ligaments of thoracic spine, initial encounter
CPT/HCPCS: 72072; 72110